=== PATIENT | male | born 1935 | race Caucasian/White ===

== ENCOUNTER 2017-09-21 20:40 | Inpatient (IN) | payer OTHER, MEDICARE ==
[~2017-09-21] VITALS: Ht 177.8 cm; Wt 80.7 kg
[~2017-09-21 20:40] MED LIST: ADVIL PO; ALBUTEROL 3 ML3 ML INH; ANTIVERT 25MG #1 PAC PO; ASPIR 8181 MG PO; ASPIRIN81 M4 PO; BACTRIM DS TAB1 EACH PO; Benadryl TOP; MIRALAX17 GM PO; Mucinex PO; PREDNISONE 10MG10 M1 PO; SENNA CON/DOCUS1 TAB PO; SENNA PLUS 50 M1 TAB PO; SIMVASTATIN40 M1 PO; SIMVASTATIN40 MG PO; SIMVASTATIN80 MG PO; VENTOLIN1 PUF INH; VITAMIN B122500 MC1 PO
--- NOTE | 2017-09-21 20:42 | ED AMS/SEIZURE/WEAK/DIZZY ---
History of Present Illness General Chief Complaint: General Adult Stated Complaint: BIBA WITH WEAKNESS Source: patient, family, old records, EMS Exam Limitations: dementia Vital Signs & Intake/Output Vital Signs & Intake/Output Vital Signs Date Time Temp Pulse Resp B/P B/P Pulse O2 O2 Flow FiO2 Mean Ox Delivery Rate 09/27 1257 97.8 62 20 128/74 02/ 0615 97.8 62 20 128/74 98 Room Air 09/26 2232 98.0 80 19 108/52 94 Room Air 09/26 1454 97.6 70 20 134/70 95 Room Air ED Intake and Output 09/27 0000 09/26 1200 Intake Total 200 Output Total Balance 200 Intake, IV 200 Patient 174 lb Weight Weight Bed scale Measurement Method Allergies Coded Allergies: acetaminophen (Mild, RASH 09/21/17) Reconcile Medications Amoxicillin/Potassium Clav (Augmentin 875-125 Tablet) 875 MG-125 MG TABLET 1 TAB PO BID Aspiration pneumonia Aspirin (Aspirin*) 81 MG TAB.CHEW 1 TAB PO DAILY HEART HEALTH (Reported) Cyanocobalamin (Vitamin B-12) 1,000 MCG TABLET 1 TAB PO DAILY SUPPLEMENT ( Reported) Escitalopram Oxalate (Lexapro) 5 MG TABLET 0.5 TAB PO DAILY Depression Hold for hyponatremia. Hold for QTc greater than 475 mS. Gabapentin 100 MG CAPSULE 1 CAP PO Q8 Anxiety off label use Ramelteon (Rozerem) 8 MG TABLET 1 TAB PO AT BEDTIME NEEDED PRN INSOMNIA Simvastatin (Simvastatin*) 40 MG TABLET 1 TAB PO QAM CHOLESTEROL (Reported) Triage Nurses Notes Reviewed? yes Onset: Abrupt Duration: day(s): (1) Injury Environment: home Severity: moderate No Modifying Factors: none Associated Symptoms: weakness, polyuria HPI: This is an 82-year-old male with history of dementia and high cholesterol who presents by EMS from home for chief complaint of weakness. According to the he was fine earlier in the day, went for a haircut. He came home and had a snack. This evening he went to go to bed around 6:00 which is normal for him. She went to check up on him and noticed that he had a hard time getting his leg in the pants. She helped him with that. She then noticed that he had a hard time lying down in bed and seemed to be weak. He urinated multiple times but this is not abnormal for him. No fever or chills. No abdominal pain chest pain shortness of breath runny nose or cough. He is a pneumonia vaccine. History of UTI previous confusion. According to the daughter he has been progressively failing at home secondary to dementia. Has a history of aphasia and is prone to aspiration pneumonia as well. Past History Travel History Traveled to [place] past 21 day No Medical History Any Pertinent Medical History? see below for history Neurological: dementia Cardiovascular: hyperlipidemia Respiratory: bronchitis Gastrointestinal: DYSPHAGIA Renal: nephrolithiasis Musculoskeletal: arthritis of neck History of MRSA: No History of VRE: No History of CDIFF: No Surgical History Surgical History: N Right inguinal area surgery Psychosocial History Who do you live with Family Services at Home None What is your primary language Cymraes Family History Family History, If Any: SISTER Relation not specified for: FH: HTN (hypertension) Hx Contributory? No Review of Systems Review of Systems Constitutional: Reports: malaise, weakness. Denies: chills, fever. EENTM: Reports: no symptoms. Respiratory: Reports: cough. Denies: short of breath, sputum production. Cardiovascular: Denies: chest pain. GI: Denies: abdominal pain, diarrhea, nausea, vomiting. Genitourinary: Reports: frequency. Musculoskeletal: Denies: back pain. Skin: Reports: no symptoms. Neurological/Psychological: Reports: no symptoms. Hematologic/Endocrine: Reports: polyuria. Denies: bruising, bleeding, polydipsia. Immunologic/Allergic: Denies: splenectomy. All Other Systems: Reviewed and Negative Physical Exam Physical Exam General Appearance: well developed/nourished, alert, awake, mild distress Head: atraumatic, normal appearance Eyes: Bilateral: normal appearance, PERRL, EOMI. Ears, Nose, Throat: normal pharynx, hearing grossly normal Neck: normal inspection, supple, full range of motion Respiratory: normal breath sounds, chest non-tender, no respiratory distress Cardiovascular: regular rate/rhythm Peripheral Pulses: 2+ radial (R), 2+ radial (L) Gastrointestinal: normal bowel sounds, soft, non-tender Extremities: normal range of motion Neurologic/Psych: no motor/sensory deficits, awake, alert, ORIENTED X 2 Skin: intact, normal color, warm/dry Core Measures ACS in differential dx? No CVA/TIA Diagnosis No Sepsis Present: No Sepsis Focused Exam Completed? No Progress Differential Diagnosis: anemia, dehydration, encephalitis, pneumonia, UTI/pyelo, SEPSIS Plan of Care: Orders Procedure Date/time Status Discharge Patient 09/27 UNK Active Nursing Misc 09/26 UNK Active Current Medications Sig/Mckenzie Start time Last Medication Dose Stop Time Status Admin Diphenhydramine HCl 1 DALTON BID PRN 09/25 1500 AC (Benadryl) Escitalopram Oxalate 2.5 MG DAILY 09/24 1000 AC 09/27 (Lexapro) 0910 Ramelteon 8 MG AT BEDTIME NEED.. 09/23 1515 AC (Rozerem) Gabapentin 100 MG Q8 09/23 1504 AC 09/27 (Neurontin) 0543 Omeprazole 40 MG DAILY AC 09/23 0700 AC 09/27 (Prilosec) 0543 Atorvastatin Calcium 20 MG 1700 09/22 1700 AC 09/26 (Lipitor) 1717 Aspirin 81 MG DAILY 09/22 1000 AC 09/27 (Aspirin) 0910 Enoxaparin Sodium 40 MG DAILY 09/22 1000 AC 09/27 (Lovenox) 0910 Laboratory Tests 09/26/17 1820: Anion Gap 15, Estimated GFR > 60, BUN/Creatinine Ratio 32.9 H Diagnostic Imaging: Viewed by Me: Radiology Read, CT Scan. Discussed w/RAD: Radiology Read, CT Scan. Radiology Impression: PATIENT: MEGAN COTTON PRESENT AGE: 82 PATIENT ACCOUNT NO: [id number] : 34 LOCATION: [facility] ORDERING PHYSICIAN: Jessie Rey MD SERVICE DATE: 09/21/17 EXAM TYPE: CAT - CT ABD & PELVIS W IV CONTRAST; CT CHEST W IV CONTRAST EXAMINATION: CT CHEST WITH CONTRAST CT ABDOMEN AND PELVIS WITH CONTRAST CLINICAL INFORMATION: Fever, lethargy, leukocytosis. COMPARISON: Chest radiograph from earlier today TECHNIQUE: Multidetector volumetric imaging was performed through the chest, abdomen and pelvis following the administration of 95 mL of Optiray 320 intravenous contrast. Sagittal and coronal reformatted images were obtained on the technologist's workstation. Axial MIP volume rendering provided. DLP: 609 mGy-cm. FINDINGS: CHEST: Lungs: The central airways are patent. There is focal opacity seen at the left lower lobe at the posterior costophrenic angle. Linear scarring seen at the left lung apex. Minimal groundglass opacity noted dependently at the right upper lobe, along the major fissure. There is a subpleural left lower lobe nodule measuring 0.4 cm, series 4 image 235. There is a left upper lobe 0.5 cm nodule on series 4 image 110.. Mediastinum: The heart is normal in size. Coronary artery calcifications are present. No pericardial effusion. No mediastinal lymphadenopathy. The thyroid gland is unremarkable. Chest Wall/Axilla: No lymphadenopathy. No chest wall mass. ABDOMEN/PELVIS: Liver , Gallbladder, Biliary Tree: The liver is normal in size, shape, and attenuation. There is no intrahepatic biliary ductal dilatation. Multiple hypoattenuating lesions are seen in the liver. The largest is seen in segment 4A , measuring 2.6 cm and is consistent with a cyst.. The gallbladder is unremarkable with no evidence of radiopaque gallstones, gallbladder wall thickening, or pericholecystic inflammatory changes. Pancreas: Unremarkable. Spleen: Unremarkable. Adrenal Glands: Unremarkable. Kidneys and Ureters: The kidneys are normal in size, shape, and attenuation. No hydronephrosis or hydroureter. Minimal symmetric perinephric stranding. There is a left upper pole 0.6 cm calculus, 7 cm from the posterior axillary line, measuring 600 Hounsfield units. Bladder: Unremarkable. Gastrointestinal Tract: The stomach is unremarkable. The small bowel is normal in caliber. No obstruction. Normal appendix. There is no colonic wall thickening or inflammatory change. There is a mild colonic stool burden. Moderate stool distends the rectum. No free air or free fluid. Abdominal Wall: Fat-containing right inguinal hernia. Lymphovascular Structures: Lymph nodes: Normal. Vascular: Normal caliber aorta with mild atherosclerotic calcifications. Pelvic Viscera: The prostate and seminal vesicles are unremarkable. OSSEOUS STRUCTURES: No suspicious sclerotic or lytic bone lesions are identified. Degenerative changes throughout the spine. DISH. Degenerative changes of both hips. IMPRESSION: Airspace opacity at the left lung base posterior costophrenic angle. This could represent atelectasis or pneumonia. Pulmonary nodules measuring up to 0.5 cm[address] follow-up could be considered in a high-risk patient. No acute findings in the abdomen or pelvis. Stool throughout the colon. Nonobstructive left upper pole renal calculus. DICTATED BY: Nahid BUSH,Walter DATE/TIME DICTATED:09/21/172325 CAN INSPECTOR:GALINA DATE/TIME TRANSCRIBED:09/21/172325 CONFIDENTIAL, DO NOT COPY WITHOUT APPROPRIATE AUTHORIZATION. <Electronically signed in Other Vendor System> SIGNED BY: Walter Whitfield MD 09/21/172336 CXR Impression: PATIENT: MEGAN COTTON PRESENT AGE: 82 PATIENT ACCOUNT NO: [id number] : 34 LOCATION: [facility] ORDERING PHYSICIAN: Jessie Rey MD SERVICE DATE: 09/21/17 EXAM TYPE: RAD - XRY-CHEST XRAY , TWO VIEWS EXAMINATION: XR CHEST CLINICAL INFORMATION: Fever. Weakness. History of dysphagia. Rule out aspiration or pneumonia. COMPARISON: Several previous chest x-rays the last chest x-ray dated 04/14/2017. TECHNIQUE: 2 views of the chest were obtained. FINDINGS: Stable mild elevation of the right hemidiaphragm. Streaky right basilar opacities are not significantly changed compared to previous study reflecting atelectasis and/or scarring. Streaky bilateral paramediastinal and left basilar opacities are also stable since previous studies. No discrete focal consolidation is noted. No pulmonary edema, pneumothorax or pleural effusions. A faint 4 mm nodular density projecting in the right upper lung over anterior segment of the second rib and posterior segment of the fourth rib is a stable finding when compared to previous chest x- rays of 11/18/2014. Cardiomediastinal silhouette is stable and normal. Mild degenerative changes in the thoracolumbar spine. IMPRESSION: Stable chronic finding. No convincing evidence of superimposed acute pulmonary process. DICTATED BY: Bina Parham MD DATE/TIME DICTATED:09/21/172109 CAN INSPECTOR: GALINA DATE/TIME TRANSCRIBED:09/21/172109 CONFIDENTIAL, DO NOT COPY WITHOUT APPROPRIATE AUTHORIZATION. <Electronically signed in Other Vendor System> SIGNED BY: Bina Parham MD 09/21/172116 Initial ED EKG: NSR, RBBB Prior EKG: unchanged Departure Departure Disposition: STILL A PATIENT Condition: Stable Clinical Impression Primary Impression: Pneumonia Referrals: Natali Hurst MD (PCP/Family) Departure Forms: Customer Survey General Discharge Information Prescriptions: Current Visit Scripts Gabapentin 1 CAP PO Q8 #30 CAP Escitalopram Oxalate (Lexapro) 0.5 TAB PO DAILY #30 TAB Hold for hyponatremia. Hold for QTc greater than 475 mS. Ramelteon (Rozerem) 1 TAB PO AT BEDTIME NEEDED PRN INSOMNIA #30 TAB Amoxicillin/Potassium Clav (Augmentin 875-125 Tablet) 1 TAB PO BID #4 TAB studies. No discrete focal consolidation is noted. No pulmonary edema, pneumothorax or pleural effusions. A faint 4 mm nodular density projecting in the right upper lung over anterior segment of the second rib and posterior segment of the fourth rib is a stable finding when compared to previous chest x- rays of 11/18/2014. Cardiomediastinal silhouette is stable and normal. Mild degenerative changes in the thoracolumbar spine.
[2017-09-21] MEDS ORDERED: VITAMIN B-121000 MC3 PO (20:46)
--- NOTE | 2017-09-21 21:17 | RADIOLOGY REPORT ---
EXAMINATION: XR CHEST CLINICAL INFORMATION: Fever. Weakness. History of dysphagia. Rule out aspiration or pneumonia. COMPARISON: Several previous chest x-rays the last chest x-ray dated 04/14/2017. TECHNIQUE: 2 views of the chest were obtained. FINDINGS: Stable mild elevation of the right hemidiaphragm. Streaky right basilar opacities are not significantly changed compared to previous study reflecting atelectasis and/or scarring. Streaky bilateral paramediastinal and left basilar opacities are also stable since previous studies. No discrete focal consolidation is noted. No pulmonary edema, pneumothorax or pleural effusions. A faint 4 mm nodular density projecting in the right upper lung over anterior segment of the second rib and posterior segment of the fourth rib is a stable finding when compared to previous chest x-rays of 11/18/2014. Cardiomediastinal silhouette is stable and normal. Mild degenerative changes in the thoracolumbar spine. IMPRESSION: Stable chronic finding. No convincing evidence of superimposed acute pulmonary process.
[2017-09-21 21:53] LABS: ABSOLUTE BASOPHIL COUNT 0 /CUMM (0.0-0.2); ABSOLUTE EOSINOPHIL COUNT 0 /CUMM (0.0-0.7); ABSOLUTE GRANULOCYTE CT 12.9 /CUMM (1.4-6.5); ABSOLUTE LYMPH COUNT 0.7 /CUMM (1.2-3.4); ABSOLUTE MONOCYTE COUNT 0.7 /CUMM (0.10-0.60); BASOPHIL % 0 % (0.0-2.0); EOSINOPHIL % 0.1 % (0-5); HEMATOCRIT 44.1 % (42-52); MEAN CORPUSCULAR HGB 30.5 PG (27.0-31.0); MEAN CORPUSCULAR HGB CONC 32.1 G/DL (33.0-37.0); MEAN CORPUSCULAR VOLUME 94.9 FL (80.0-94.0); MEAN PLATELET VOLUME 7.7 FL (7.4-10.4); PLATELET COUNT 226 /CUMM (130-400); RBC DISTRIBUTION WIDTH 13.5 % (11.5-14.5); RED BLOOD CELL CT 4.65 /CUMM (4.70-6.10); WHITE BLOOD CELL COUNT 14.3 /CUMM (4.8-10.8)
[2017-09-21 22:14] LABS: GRANULOCYTE % 90.1 % (42.2-75.2)
--- NOTE | 2017-09-21 23:37 | CT SCAN REPORT ---
EXAMINATION: CT CHEST WITH CONTRAST CT ABDOMEN AND PELVIS WITH CONTRAST CLINICAL INFORMATION: Fever, lethargy, leukocytosis. COMPARISON: Chest radiograph from earlier today TECHNIQUE: Multidetector volumetric imaging was performed through the chest, abdomen and pelvis following the administration of 95 mL of Optiray 320 intravenous contrast. Sagittal and coronal reformatted images were obtained on the technologist's workstation. Axial MIP volume rendering provided. DLP: 609 mGy-cm. FINDINGS: CHEST: Lungs: The central airways are patent. There is focal opacity seen at the left lower lobe at the posterior costophrenic angle. Linear scarring seen at the left lung apex. Minimal groundglass opacity noted dependently at the right upper lobe, along the major fissure. There is a subpleural left lower lobe nodule measuring 0.4 cm, series 4 image 235. There is a left upper lobe 0.5 cm nodule on series 4 image 110.. Mediastinum: The heart is normal in size. Coronary artery calcifications are present. No pericardial effusion. No mediastinal lymphadenopathy. The thyroid gland is unremarkable. Chest Wall/Axilla: No lymphadenopathy. No chest wall mass. ABDOMEN/PELVIS: Liver, Gallbladder, Biliary Tree: The liver is normal in size, shape, and attenuation. There is no intrahepatic biliary ductal dilatation. Multiple hypoattenuating lesions are seen in the liver. The largest is seen in segment 4A, measuring 2.6 cm and is consistent with a cyst.. The gallbladder is unremarkable with no evidence of radiopaque gallstones, gallbladder wall thickening, or pericholecystic inflammatory changes. Pancreas: Unremarkable. Spleen: Unremarkable. Adrenal Glands: Unremarkable. Kidneys and Ureters: The kidneys are normal in size, shape, and attenuation. No hydronephrosis or hydroureter. Minimal symmetric perinephric stranding. There is a left upper pole 0.6 cm calculus, 7 cm from the posterior axillary line, measuring 600 Hounsfield units. Bladder: Unremarkable. Gastrointestinal Tract: The stomach is unremarkable. The small bowel is normal in caliber. No obstruction. Normal appendix. There is no colonic wall thickening or inflammatory change. There is a mild colonic stool burden. Moderate stool distends the rectum. No free air or free fluid. Abdominal Wall: Fat-containing right inguinal hernia. Lymphovascular Structures: Lymph nodes: Normal. Vascular: Normal caliber aorta with mild atherosclerotic calcifications. Pelvic Viscera: The prostate and seminal vesicles are unremarkable. OSSEOUS STRUCTURES: No suspicious sclerotic or lytic bone lesions are identified. Degenerative changes throughout the spine. DISH. Degenerative changes of both hips. IMPRESSION: Airspace opacity at the left lung base posterior costophrenic angle. This could represent atelectasis or pneumonia. Pulmonary nodules measuring up to 0.5 cm[address] follow-up could be considered in a high-risk patient. No acute findings in the abdomen or pelvis. Stool throughout the colon. Nonobstructive left upper pole renal calculus.
--- NOTE | 2017-09-22 00:45 | History & Physical ---
Reese BUSH,[facility] 09/22/17 0044: General Information and HPI MD Statement: I have seen and personally examined MEGAN COTTON and documented this H&P. The patient is a 82 year old M who presented with a patient stated chief complaint of [weakness]. Source of Information: patient, family History of Present Illness: The patient is the father of Samanta from [employer]. She is one one providing most of the story along with the patient's grandson. 82-year-old male with a past medical history of dementia and high cholesterol presenting by EMS from home for chief complaint of weakness. The patient was reportedly fine all day today however he attempts to get into bed around 6:00 his normal bedtime but was unable to. He was then found by his grandson sitting but the edge of the bed however he had a hard time lying down in bed. The patient was then moved to a chair however he continued to be weak. EMS was called as the patient was too weak to move. The patient's only symptom was a fever last night. The patient and the family deny any headaches, fevers, chills, nausea, vomiting, diarrhea, abdominal pain, or changes in elimination.' Of note the patient is currently fixated on urinating. He states that he has to urinate multiple times. It appears as a the patient's urinary urgency is worse when he is lying flat on the bed. He has no history of BPH or any prostate conditions. The family believes this is more likely due to behavioral causes as the patient complains of urinary urgency however if he is distracted such as going out for car ride he will not be complaining about. Allergies/Medications Allergies: Coded Allergies: acetaminophen (Mild, RASH 09/21/17) Home Med list Aspirin (Aspirin*) 81 MG TAB.CHEW 1 TAB PO DAILY HEART HEALTH (Reported) Cyanocobalamin (Vitamin B-12) 1,000 MCG TABLET 1 TAB PO DAILY SUPPLEMENT ( Reported) Simvastatin (Simvastatin*) 40 MG TABLET 1 TAB PO QAM CHOLESTEROL (Reported) Past History Travel History Traveled to [place] past 21 day No Medical History Neurological: dementia Cardiovascular: hyperlipidemia Respiratory: bronchitis Gastrointestinal: DYSPHAGIA Hepatic: NONE Renal: nephrolithiasis Musculoskeletal: arthritis of neck Psychiatric: NONE Endocrine: NONE History of MRSA: No History of VRE: No History of CDIFF: No Surgical History Surgical History: N Right inguinal area surgery Past Family/Social History Family History Relations & Conditions if any SISTER Relation not specified for: FH: HTN (hypertension) Psychosocial History Services at Home: None Review of Systems Review of Systems Constitutional: Reports: fever. Cardiovascular: Reports: no symptoms. Respiratory: Reports: no symptoms. GI: Reports: no symptoms. Genitourinary: Reports: no symptoms. Musculoskeletal: Reports: no symptoms. Skin: Reports: no symptoms. Exam & Diagnostic Data Last 24 Hrs of Vital Signs/I&O Vital Signs Date Time Temp Pulse Resp B/P B/P Pulse O2 O2 Flow FiO2 Mean Ox Delivery Rate 09/22 0135 98.1 84 20 104/61 100 09/21 2306 100.4 09/21 2047 99.5 104 16 144/66 99 Room Air Room Air Intake & Output 09/22 0800 09/22 0000 09/21 1600 Intake Total 175 Output Total 275 Balance -100 Intake, IV 100 Intake, Oral 75 Output, Urine 275 Physical Exam General Appearance Alert, AOx2 to person, place. Able to name daughter and grandson. Recognizes he is at geni. Cardiovascular Regular Rate, Normal S1, Normal S2 Lungs Clear to Auscultation, decreased R lower lobe air movement Abdomen Normal Bowel Sounds, Soft, No Tenderness Extremities no LE edema Vascular 2+ radial pulses Last 24 Hrs of Labs/Harley: Laboratory Tests 09/22/17 0540: Anion Gap 12, Estimated GFR > 60, BUN/Creatinine Ratio 37.1 H, CBC w Diff NO MAN DIFF REQ, RBC 4.19 L, MCV 94.3 H, MCH 31.7 H, MCHC 33.6, RDW 13.4, MPV 7.8, Gran % 82.8 H, Lymphocytes % 10.4 L, Monocytes % 6.5, Eosinophils % 0.1, Basophils % 0.2, Absolute Granulocytes 11.4 H, Absolute Lymphocytes 1.4, Absolute Monocytes 0.9 H, Absolute Eosinophils 0, Absolute Basophils 0 09/21/17 2342: Lactic Acid Cancelled 09/21/179: Anion Gap 16, Estimated GFR > 60, BUN/Creatinine Ratio 41.4 H, Glucose 110 H, Lactic Acid 1.9, Calcium 9.6, Total Bilirubin 0.7, AST 29, ALT 33, Alkaline Phosphatase 74, Total Protein 6.9, Albumin 4.2, Globulin 2.7, Albumin/Globulin Ratio 1.6, CBC w Diff NO MAN DIFF REQ, RBC 4.65 L, MCV 94.9 H, MCH 30.5, MCHC 32.1 L, RDW 13.5, MPV 7.7, Gran % 90.1 H, Lymphocytes % 5.2 L, Monocytes % 4.6, Eosinophils % 0.1, Basophils % 0, Absolute Granulocytes 12.9 H, Absolute Lymphocytes 0.7 L, Absolute Monocytes 0.7 H, Absolute Eosinophils 0, Absolute Basophils 0, Urine Color YEL, Urine Clarity CLEAR, Urine pH 6.5, Ur Specific [place] 1.020, Urine Protein NEG, Urine Ketones TRACE H, Urine Nitrite NEG, Urine Bilirubin NEG, Urine Urobilinogen 1.0, Ur Leukocyte Esterase NEG, Ur Microscopic EXAM NOT REQUIRED, Urine Hemoglobin NEG, Urine Glucose NEG Microbiology 09/21 2149 NASOPHARYN: Influenza Virus A & B Rapid Smear - COMP 09/21 2129 BLOOD: Blood Culture - RECD 09/21 2128 BLOOD: Blood Culture - RECD Assessment/Plan Assessment: 82-year-old male with a past medical history of dementia, worsening dysphagia and high cholesterol presenting by EMS from home for chief complaint of weakness found to have possible aspiration pneumonia on imaging. #aspiration pna Temperature max 100.4 WBC 14.3 CXR: Stable chronic finding. No convincing evidence of superimposed acute pulmonary process. CT abd/pelvis: 1)Airspace opacity at the left lung base posterior costophrenic angle. This could represent atelectasis or pneumonia. 2)Pulmonary nodules measuring up to 0.5 cm[address] follow-up could be considered in a high-risk patient. 3)Stool throughout the colon. Nonobstructive left upper pole renal calculus -cont mechnical soft and nectar thick diet -cont unasyn -f/u swallow eval -f/u blood cx #hld -continue atorvastain #dvt prophylaxis -lovenox # DNR DNI As Ranked By This Provider Problem List: 1. Aspiration pneumonia Core Measures/Misc (05/08) Acute Coronary Syndrome ACS Diagnosis: No Congestive Heart Failure Congestive Heart Failure Diagnosis No Cerebrovascular Accident CVA/TIA Diagnosis: No VTE (View Protocol) VTE Risk Factors Acute Medical Illness No Mechanical VTE Prophylaxis d/t Other No VTE Pharm Prophylaxis d/t NA PharmProphylax ordered Sepsis (View protocol) Sepsis Present: No Urile BUSH,[facility] 09/22/17 0411: Resident Review Statement Resident Statement: examined this patient, discussed with sales management intern, agreed with sales management intern, discussed with family, reviewed EMR data (avail) Other Findings: Mr. Cotton is 82 year old male with past medical history significant for dementia, hyperlipidemia, dysphagia who presented to ED with chief complaint of weakness and lethargy for 1 day. Patient was in his regular state of health until 6 PM this evening the family noticed weakness and fatigability, patient denied any chest pain, shortness of breath, cough, ear pain, nasal congestion, history of sick contact. Family history denied any change in mentation from baseline. Patient has been having multiple episodes of choking attacks that getting worse with time. Of note patient failed multiple swallow evaluation in the past 2 years ago, recommendation for mechanical soft and thick liquid however he has been drinking milk chocolate that has thicker consistency than thin water. On admission vital signs temperature 99.5 with MAXIMUM TEMPERATURE 100.4, pulse 104, respiratory rate 16 with saturation 99% on room air, blood pressure 144/66 Physical exam and lab work as above Chest x-ray IMPRESSION: Stable chronic finding. No convincing evidence of superimposed acute pulmonary process. CT scan chest, abdomen and pelvis IMPRESSION: Airspace opacity at the left lung base posterior costophrenic angle. This could represent atelectasis or pneumonia. Pulmonary nodules measuring up to 0.5 cm[address] follow-up could be considered in a high-risk patient. No acute findings in the abdomen or pelvis. Stool throughout the colon. Nonobstructive left upper pole renal calculus. Problem list #Aspiration pneumonia #Hyperlipidemia #Dementia Plan -Admit to general medical floor -Vital signs every 6 -Follow-up blood culture -Continue IV Unasyn -TRC -Swallowing evaluation -We'll start diet meanwhile as patient is very hungry mechanical soft and nectar thick -DVT prophylaxis Lovenox and Alps -Code DNR/DNI Andressa Vasquez 09/22/17 0744: Attending MD Review Statement Attending Statement Attending MD Statement: examined this patient, discuss w/resident/PA/PYTHON JAVA DEVELOPER, agreed w/resident/PA/PYTHON JAVA DEVELOPER, discussed with family, reviewed EMR data (avail), reviewed images, amended to note Attending Assessment/Plan: CC: More lethargic PMH: HLD, dementia Patient was brought in ER for being more lethargic, not being himself. History is obtained from patient's daughter, given patient's dementia. Patient has chronic urinary frequency which is unchanged, family did not notice any cough or expectoration but patient has history of dysphagia, always having hacking sensation in throat, history of previous aspiration pneumonia, so family was concerned regarding pneumonia and patient was brought in ER Vitals: BP max 100.4, pulse 104, RR 16, blood pressure 144/66, saturating 99% on room air on exam: A O 3, cooperative, no acute distress, neck supple, JVD normal, no lymphadenopathy, mucosa moist, no focal neurological deficit, no dependent edema, no obvious skin rashes or inflammation CVS: S1-S2, RRR. RS: Decreased air entry on left mid and basal. Abdomen: Soft, NT, ND, bowel sounds present. Labs: WBC 14.3, hemoglobin 14.2, hematocrit 44.1, platelets 226, neutrophils 90% , sodium 144, potassium 4.4, chloride 102, bicarbonate 26, BUN 29, creatinine 0.7, glucose 110, calcium 9.6, lactate 1.9, LFT unremarkable UA unremarkable CT chest abdomen pelvis with IV contrast: 1.Airspace opacity at the left lung base posterior costophrenic angle. This could represent atelectasis or pneumonia. 2.Pulmonary nodules measuring up to 0.5 cm[address] follow-up could be considered in a high-risk patient. 3.No acute findings in the abdomen or pelvis. Stool throughout the colon. Nonobstructive left upper pole renal calculus. Assessment and plan 82-year-old male with past medical history significant for dyslipidemia and dementia currently not on any treatment and history of dysphagia in the past but aspiration pneumonia presented in ER for being lethargic this evening. There was no obvious cough but patient's family noticed chronically increased urinary frequency. Multiple imaging were obtain to rule out any infection as a cause of delirium secondary to dementia, patient was found to have left lower lobe infiltrate suggestive of pneumonia probably secondary to aspiration. While on examination patient was back to his baseline. He has poor recall and repeats the same questions again and again. Last swallow evaluation was 2 years back. Family and patient insists on continuing thickened diet and not being nothing by mouth, I agree with that. + Aspiration pneumonia + Dysphagia + History of dementia - Admit to general medicine - Continue IV Unasyn - Continue nectar thick consistency diet - Swallow evaluation - Continue home medications - Watch for any delirium - DVT prophylaxis
[2017-09-22 05:58] LABS: ABSOLUTE BASOPHIL COUNT 0 /CUMM (0.0-0.2); ABSOLUTE EOSINOPHIL COUNT 0 /CUMM (0.0-0.7); ABSOLUTE GRANULOCYTE CT 11.4 /CUMM (1.4-6.5); ABSOLUTE LYMPH COUNT 1.4 /CUMM (1.2-3.4); ABSOLUTE MONOCYTE COUNT 0.9 /CUMM (0.10-0.60); BASOPHIL % 0.2 % (0.0-2.0); EOSINOPHIL % 0.1 % (0-5); GRANULOCYTE % 82.8 % (42.2-75.2); HEMATOCRIT 39.5 % (42-52); MEAN CORPUSCULAR HGB 31.7 PG (27.0-31.0); MEAN CORPUSCULAR HGB CONC 33.6 G/DL (33.0-37.0); MEAN CORPUSCULAR VOLUME 94.3 FL (80.0-94.0); MEAN PLATELET VOLUME 7.8 FL (7.4-10.4); PLATELET COUNT 223 /CUMM (130-400); RBC DISTRIBUTION WIDTH 13.4 % (11.5-14.5); RED BLOOD CELL CT 4.19 /CUMM (4.70-6.10); WHITE BLOOD CELL COUNT 13.7 /CUMM (4.8-10.8)
--- NOTE | 2017-09-22 07:46 | Admission Certification ---
Admission Certification Certification Statement - As attending physician, I certify that at the time of - admission, based on clinical presentation, severity of - symptoms, need for further diagnostic testing and - therapeutic interventions, and risk of adverse outcomes - without in-hospital treatment, in my clinical assessment, - this patient requires an acute hospital stay for a minimum - of two nights or longer. I have also considered psychsocial - factors such as support system, advanced age, financial - issues, cognitive issues, and failed out-patient treatments, - past re-admission history, safety of patient, and lack of - compliance as applicable. Specific rationale supporting this admission is: Aspiration pneumonia
--- NOTE | 2017-09-22 08:05 | PN- Housestaff ---
DiegoLopez 09/22/17 0804: Subjective Follow-up For: Aspiration pneumonia Subjective: No overnight events. She remained afebrile overnight. Seen and examined this morning. Patient denied any chest pain, short of breath, nausea, vomiting, chills, fever and abdominal pain. Patient was repeatedly asking then he will go home. Review of Systems Constitutional: Reports: no symptoms. EENTM: Reports: no symptoms. Cardiovascular: Reports: no symptoms. Respiratory: Reports: no symptoms. Gastrointestinal: Reports: no symptoms. Genitourinary: Reports: no symptoms. Neurological/Psychological: Reports: no symptoms. Objective Last 24 Hrs of Vital Signs/I&O Vital Signs Date Time Temp Pulse Resp B/P B/P Pulse O2 O2 Flow FiO2 Mean Ox Delivery Rate 09/22 1312 Room Air 09/22 1027 97 Room Air Room Air 09/22 1013 77 18 114/74 100 Room Air 09/22 0823 96.8 77 15 135/70 100 Room Air Room Air 09/22 0624 99.0 83 22 116/69 98 Room Air 09/22 0135 98.1 84 20 104/61 100 09/21 2306 100.4 09/21 2047 99.5 104 16 144/66 99 Room Air Room Air Intake & Output 09/22 1600 09/22 0800 09/22 0000 Intake Total 175 Output Total 275 Balance -100 Intake, IV 100 Intake, Oral 75 Output, Urine 275 Patient 170 lb Weight Weight Reported by Patient Measurement Method Physical Exam General Appearance: Alert, Cooperative Skin Temp/Moisture Exam: Warm/Dry Sepsis Skin Exam (color): Normal for Ethnicity HEENT: Atraumatic, PERRLA, EOMI Neck: Supple Cardiovascular: Normal S1, Normal S2 Lungs: Clear to Auscultation Abdomen: Soft, No Tenderness Neurological: Normal Speech, Strength at 5/5 X4 Ext, Normal Tone, Sensation Intact Extremities: No Edema Assessment/Plan Assessment: 82-year-old male with a past medical history of dementia, worsening dysphagia, arthritis and hyperlipidemia presenting by EMS from home for chief complaint of weakness found to have possible aspiration pneumonia on imaging. Admit the patient on general medicine floor and treated for aspiration pneumonia and evaluate for dysphagia. Aspiration pneumonia: -As patient having dysphagia as reported by the family members. -We will get swallow eval -We will modify his diet to nector thick for now and later swallow eval recommendations. -We will continue IV Unasyn. -Head end elevation to prevent aspiration. -Aspiration precautions. -Prophylactic PPI therapy. -Avoid any delirium triggered medication. -We'll continue aspirin. History of hyperlipidemia: -We will continue Lipitor. DVT Prophylaxis: Mechanical and Lovenox. CODE STATUS; DNR/intub Problem List: 1. Aspiration pneumonia Pain Ratin Pain Location: none Pain Goal: Remain pain free Pain Plan: pain pathway Tomorrow's Labs & Rationales: cbc/bep Elena Tay MD 09/22/17 1644: Attending MD Review Statement Attending Statement Attending MD Statement: examined this patient, discuss w/resident/PA/CHINESE HERBALIST, agreed w/resident/PA/CHINESE HERBALIST, reviewed EMR data (avail) Attending Assessment/Plan: 82M PMH HLD, dementia presenting with 1 day of weakness and lethargy, found to have LLL infiltrate, WBC 14, treated with Unasyn and IV fluids, with improvement in mental status. Patient feels well today, is pleasantly confused and forgetful, and wants to go home. Per family the patient has had issues with swallowing in the past, and was unable to complete a modified barium swallow 5 years ago. He is hemodynamically stable at this time, cultures NGTD. 1. LLL aspiration pneumonia 2. Oropharyngeal dysphagia 3. Alzheimer's dementia 4. Metabolic encephalopathy (resolved) Plan - Continue on general medicine - Continue Unasyn - Sputum culture if possible - Seen by speech therapy, failed modified barium swallow. After discussion with patient and family, will not pursue PEG at this time as it is not in the patient 's best interest, and will proceed with pureed nectar thick diet and aspiration precautions - Start PPI - Keep head of bed elevated, especially during and after meals - Continue home medications - DVT PPx
[2017-09-22 10:13] VITALS: BP 114/74
--- NOTE | 2017-09-22 14:41 | RADIOLOGY REPORT ---
EXAMINATION: XR MODIFIED BARIUM SWALLOW CLINICAL INFORMATION: Coughing with oral intake. COMPARISON: Barium esophagram of 08/07/2012. Modified barium swallow 09/07/2012. TECHNIQUE: Fluoroscopic assistance was provided during a modified barium swallow performed in cooperation with the speech pathology service. FLUOROSCOPY TIME: 1 minute, 43 seconds NUMBER OF SAVED IMAGES: Only screening capture images were saved (i.e., no additional radiation exposure with spot fluoroscopy images). FINDINGS: The modified barium swallow examination was performed in cooperation with the speech pathologist using dynamic fluoroscopic imaging in a lateral projection. The patient's swallowing function was observed during administration of apple sauce puree and honey. Prior to triggering of swallows, there was spillage of contrast material from the oral cavity into the vallecula. After deglutition, there was moderate retention of applesauce within the vallecula, and an episode of tracheal penetration of applesauce occurred. There was partial clearing of the vallecula with coughing. There was aspiration of the barium coated honey. Please refer to the speech pathology report. IMPRESSION: Tracheal penetration occurred with oral intake of applesauce, and there was moderate retention of material within the vallecula. Tracheal aspiration occurred with the barium coated honey.
[2017-09-22 22:28] VITALS: BP 112/70
[2017-09-23 05:50] VITALS: BP 110/68
--- NOTE | 2017-09-23 07:42 | PN- Housestaff ---
DiegoS [place] 09/23/17 0741: Subjective Follow-up For: Aspiration pneumonia Oropharyngeal dysphagia. Metabolic encephalopathy Subjective: No overnight events. Patient remained afebrile overnight. Seen and examined this morning. Patient having history of dementia. He was oriented to place and time but not to person. Patient denied any chest pain, short of breath, nausea, vomiting, chills, fever, abdominal pain dysuria. Her family requested to change his diet to mechanical soft and neck take. Patient was asking that he was supposed to be discharged today. We will do prostate examination today and also UA and urine culture. KIRAN was done to examine the prostate that was normal. On exam consistency of gland is firm, mucosa overlying is mobile, median sulcus is palpable and upper limit is reachable. Review of Systems Constitutional: Reports: no symptoms. EENTM: Reports: no symptoms. Cardiovascular: Reports: no symptoms. Respiratory: Reports: no symptoms. Gastrointestinal: Reports: no symptoms. Genitourinary: Reports: no symptoms. Neurological/Psychological: Reports: no symptoms. Objective Last 24 Hrs of Vital Signs/I&O Vital Signs Date Time Temp Pulse Resp B/P B/P Pulse O2 O2 Flow FiO2 Mean Ox Delivery Rate 09/23 0550 98.7 86 22 110/68 100 Room Air 09/23 0000 Room Air 09/22 2228 97.0 75 20 112/70 96 Room Air 09/22 1600 Room Air 09/22 1312 Room Air 09/22 1027 97 Room Air Room Air Intake & Output 09/23 1600 09/23 0800 09/23 0000 Intake Total 340 340 Output Total 300 Balance 340 40 Intake, IV 100 100 Intake, Oral 240 240 Output, Urine 300 Patient 175 lb Weight Physical Exam General Appearance: Alert, Cooperative Skin Temp/Moisture Exam: Warm/Dry Sepsis Skin Exam (color): Normal for Ethnicity HEENT: Atraumatic, PERRLA, EOMI Neck: Supple Cardiovascular: Normal S1, Normal S2 Lungs: Clear to Auscultation Abdomen: Soft, No Tenderness Neurological: Normal Speech, Strength at 5/5 X4 Ext, Normal Tone Extremities: No Edema Assessment/Plan Assessment: 82-year-old male with a past medical history of dementia, worsening dysphagia, arthritis and hyperlipidemia presenting by EMS from home for chief complaint of weakness found to have possible aspiration pneumonia on imaging. Admit the patient on general medicine floor and treated for aspiration pneumonia and evaluate for dysphagia. Aspiration pneumonia: -As patient having dysphagia as reported by the family members. -We will continue IV Unasyn. Day 2 -Head end elevation to prevent aspiration. -Aspiration precautions. -Prophylactic PPI therapy. -Avoid any delirium triggered medication. -We'll continue aspirin. Metabolic encephalopathy: -Could be multifactorial, aspiration pneumonia, medications or UTI. -We will check his UA and urine culture. -Avoid delirium triggered medications. Oropharyngeal dysphagia: -Patient failed modified barium swallow eval. Matter was discussed with family and they don't want PEG at this time as its not in patient's best interest and they agreed to go with puree and nector thick diet. History of hyperlipidemia: -We will continue Lipitor. DVT Prophylaxis: Mechanical and Lovenox. CODE STATUS; DNR/intub Problem List: 1. Aspiration pneumonia Pain Ratin Pain Location: none Pain Goal: Remain pain free Pain Plan: pain pathway Tomorrow's Labs & Rationales: cbc/bep Elena Tay MD 09/23/17 1303: Attending MD Review Statement Attending Statement Attending MD Statement: examined this patient, discuss w/resident/PA/BUTTON RECLAIMER, agreed w/resident/PA/BUTTON RECLAIMER, reviewed EMR data (avail) Attending Assessment/Plan: 82M PMH HLD, dementia presenting with 1 day of weakness and lethargy, found to have LLL infiltrate, WBC 14, treated with Unasyn and IV fluids, with improvement in mental status. Patient is more confused today, with delirium worsening. Per family the patient has had issues with swallowing in the past, and was unable to complete a modified barium swallow 5 years ago. He is hemodynamically stable at this time, cultures NGTD. He consistently (for the past year) says he has to urinate very frequently, but only urinates small amounts. No residual was measured in ED post-void. He denies dysuria. 1. LLL aspiration pneumonia 2. Oropharyngeal dysphagia 3. Alzheimer's dementia 4. Metabolic encephalopathy Plan - Continue on general medicine - Prostate check, repeat urinalysis and urine culture - Psychiatry consult for depression at home and agitation while inpatient - Continue Unasyn - Sputum culture if possible - Seen by speech therapy, failed modified barium swallow. After discussion with patient and family, will not pursue PEG at this time as it is not in the patient 's best interest, and will proceed with pureed nectar thick diet and aspiration precautions - Continue PPI - Keep head of bed elevated, especially during and after meals - Continue home medications - DVT PPx
[2017-09-23 09:13] LABS: ABSOLUTE BASOPHIL COUNT 0 /CUMM (0.0-0.2); ABSOLUTE EOSINOPHIL COUNT 0 /CUMM (0.0-0.7); ABSOLUTE GRANULOCYTE CT 5.2 /CUMM (1.4-6.5); ABSOLUTE MONOCYTE COUNT 0.7 /CUMM (0.10-0.60); EOSINOPHIL % 0.5 % (0-5); GRANULOCYTE % 69.5 % (42.2-75.2); HEMATOCRIT 43.5 % (42-52); MEAN CORPUSCULAR HGB 31.4 PG (27.0-31.0); MEAN CORPUSCULAR HGB CONC 33.5 G/DL (33.0-37.0); MEAN CORPUSCULAR VOLUME 93.8 FL (80.0-94.0); MEAN PLATELET VOLUME 8.4 FL (7.4-10.4); PLATELET COUNT 212 /CUMM (130-400); RBC DISTRIBUTION WIDTH 13.4 % (11.5-14.5); RED BLOOD CELL CT 4.64 /CUMM (4.70-6.10); WHITE BLOOD CELL COUNT 7.5 /CUMM (4.8-10.8)
--- NOTE | 2017-09-23 14:39 | Cons- Psychiatry ---
Psychiatric Consult Date of Consult: 09/23/17 Reason for Consult: "Dementia, confusion." Evaluate for depression and anxiety, in the setting of Alzheimer's dementia, pneumonia and possible poor sleep last night. History of Present Illness: 82 , male LEXUS from home on 09/21/17 with CC of weakness and frequent urination. He was admitted for aspiration pneumonia secondary to dysphagia. Allergies: Coded Allergies: acetaminophen (Mild, RASH 09/21/17) Current Medications: Current Medications Sig/Mckenzie Start time Last Medication Dose Route Stop Time Status Admin Ampicillin Sodium/ 3,000 MG Q6 09/22 0600 AC 09/23 Sulbactam Sodium IV 1143 Sodium Chloride 100 ML Aspirin 81 MG DAILY 09/22 1000 AC 09/23 PO 1143 Atorvastatin Calcium 20 MG 1700 09/22 1700 AC 09/22 PO 1822 Dextrose/Sodium 1,000 ML Q13H 09/22 1545 DC Chloride IV 09/23 0444 Enoxaparin Sodium 40 MG DAILY 09/22 1000 AC 09/23 SC 1143 Omeprazole 40 MG DAILY AC 09/23 0700 AC 09/23 PO 0543 Past History Past Medical History Neurological: dementia EENT: NONE Cardiovascular: hyperlipidemia Respiratory: bronchitis Gastrointestinal: DYSPHAGIA Hepatic: NONE Renal: nephrolithiasis Musculoskeletal: osteoarthritis, arthritis of neck Psychiatric: NONE Endocrine: NONE Blood Disorders: NONE Cancer(s): NONE MEDICINAL PLANT PICKER/Reproductive: NONE Past Surgical History Surgical History: Right inguinal area surgery Psychosocial History Strengths/Capabilities: Supportive family Physical Limitations (Interventions): Walks with a cane Psychiatric Treatment History Psych Treatment Psychiatric Treatment No Diagnosis: F05 Delirium due to another medical condition, aspiration pneumonia G30.9 Alzheimer's disease F02.80 Major neurocognitive disorder due to Alzheimer's disease Risk Factors: age (under 24/over 65), male Substance Use/Abuse History Drug Use/Abuse Substances Used/Abused No Substance Abuse Treatment Substance Abuse Treatment Past Substance Abuse [place] No Assessment/Plan Mental Status Orientation: Person Affect: Anxious Speech: Perseveration Neuro-vegetative: Sleep Disturbance Mental Status Exam: The patient was standing with his safety monitor and using a cane when I entered the room. He states that he had just seen a bug on the floor, "I killed one;" the safety monitor denies seeing a bug. He is oriented to name, but is off by one day, "Tuesday," states that he is in a half-way in [place], and it is July of 1962. Brian is president. 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 He denies auditory or visual disturbances. He denies suicidal or homicidal ideation. The patient states that he slept wonderful last night (Nursing reports otherwise ). He reports that he gets to sleep very quickly. Family reports that he goes to sleep at 6 PM. He denies depression, hopelessness, helplessness, worthlessness or guilty feelings. He reports that he is a little anxious, "Once in a while on the job. Parent- teacher conference." The patient's insight and judgment are not intact. Lab Results: Laboratory Tests 09/23 0750 Chemistry Sodium (137 - 145 mmol/L) 144 Potassium (3.5 - 5.1 mmol/L) 4.1 Chloride (98 - 107 mmol/L) 106 Carbon Dioxide (22 - 30 mmol/L) 23 Anion Gap (5 - 16) 15 BUN (9 - 20 mg/dL) 18 Creatinine (0.7 - 1.2 mg/dL) 0.7 Estimated GFR (>60 ml/min) > 60 BUN/Creatinine Ratio (7 - 25 %) 25.7 H Hematology CBC w Diff NO MAN DIFF REQ WBC (4.8 - 10.8 /CUMM) 7.5 RBC (4.70 - 6.10 /CUMM) 4.64 L Hgb (14.0 - 18.0 G/DL) 14.6 Hct (42 - 52 %) 43.5 MCV (80.0 - 94.0 FL) 93.8 MCH (27.0 - 31.0 PG) 31.4 H MCHC (33.0 - 37.0 G/DL) 33.5 RDW (11.5 - 14.5 %) 13.4 Plt Count (130 - 400 /CUMM) 212 MPV (7.4 - 10.4 FL) 8.4 Gran % (42.2 - 75.2 %) 69.5 Lymphocytes % (20.5 - 51.1 %) 20.6 Monocytes % (1.7 - 9.3 %) 8.9 Eosinophils % (0 - 5 %) 0.5 Absolute Granulocytes (1.4 - 6.5 /CUMM) 5.2 Absolute Monocytes (0.10 - 0.60 /CUMM) 0.7 H Absolute Eosinophils (0.0 - 0.7 /CUMM) 0 Absolute Basophils (0.0 - 0.2 /CUMM) 0 Diffential Diagnosis: F05 Delirium due to another medical condition, aspiration pneumonia G30.9 Alzheimer's disease F02.80 Major neurocognitive disorder due to Alzheimer's disease Impression: Per family, the patient is not at baseline, and presents several firsts today, including visual hallucination, not sleeping well and not recognizing his daughter, Samanta. He carries a diagnosis of Alzheimer's dementia, but the recent decreased cognition is likely due to new aspiration pneumonia. The patient also has been having dysphagia. The patient has not been willing in the past to start any medications. His daughter, Samanta, is his power of litigation attorney. I reviewed R/B/SE of escitalopram for , anxiety and depression, with her, and also gabapentin, which we will start on an as needed basis for anxiety, an off-label use. He would benefit from a geriatric evaluation, and consideration for Aricept, and possibly Namenda, as an outpatient. Provisional Treatment Plan: 1. Complete the reversible dementia screen, including electrolytes, B12, Lyme titer, head imaging, CBC. 2. Avoid delirium triggers. Minimize nursing interventions between the hours of 10PM and 6AM, or thepatient's normal sleeping hours. 3. I will order Ramelteon 8 mg PO before bedtime for insomnia 4. wrapper hands sprayer while confused or delirious 5. I will order gabapentin 100 mg PO every 8 hours for anxietry, an off-label use. 6. I will order escitalopram 2.5 mg PO daily for anxiety and depression. a. Monitor sodium and stop if hyponatremia. b. Monitor EKG, and stop for QTc prolongation c. Monitor for suicidal ideation and stop if this occurs. d. If tolerated, may increase after 7 days to 5 mg PO daily. 7. Psychiatry consult at the receiving facility. 8. Avoid benzodiazepines due to increased risk of delirium exacerbation, risk for falls. 9. If agitation, redirection and soft restraints, as necessary. 10. If severe or violent agitation, consider low dose quetiapine 12.5 mg up to 2X/day, as needed. Monitor EKG and hold for arrhythmia or QTc greater than 475 mS. Monitor and replete potassium and magnesium to the upper portion of the normal range. Hold for oversedation of respiratory depression. We will continue to follow along with you. Please call dietitian consultant psychiatry over the weekend, if severe agitation or aggression, X. [phone], X. [phone]
--- NOTE | 2017-09-23 15:28 | Patient Discharge Instructions ---
Discharge Instructions General Discharge Information You were seen/treated for: Aspiration pneumonia Oropharyngeal dysphagia Metabolic encephalopathy Watch for these problems: Shortness of breath, cough, choking, sputum, chest pain, altered mental status, increasing confusion, lightheadedness, fever and dysuria. If you experience any of these symptoms please come to ED or call to your primary care physician. Special Instructions: Follow-up your primary care physician in one week. Diet Recommended Diet: Regular Additional DIET Information: Pure and nectar thick prevent aspiration pneumonia. Activity Activity Self Limited: Yes Acute Coronary Syndrome Inclusion Criteria At DC or during hospital stay patient has or had the following: ACS DIAGNOSIS No Discharge Core Measures Meds if any: Prescribed or Continued at Discharge Meds if any: NOT Prescribed or Continued at Discharge Congestive Heart Failure Inclusion Criteria At DC or during hospital stay patient has or had the following: CHF DIAGNOSIS No Discharge Core Measures Meds if any: Prescribed or Continued at Discharge Meds if any: NOT Prescribed or Continued at Discharge Cerebrovascular accident Inclusion Criteria At DC or during hospital stay patient has or had the following: CVA/TIA Diagnosis No Discharge Core Measures Meds if any: Prescribed or Continued at Discharge Meds if any: NOT Prescribed or Continued at Discharge Venous thromboembolism Inclusion Criteria VTE Diagnosis No VTE Type NONE VTE Confirmed by (Test) NONE Discharge Core Measures - Per Current guidelines, there needs to be overlap - treatment for the first 5 days of Warfarin therapy. - If discharged on Warfarin prior to 5 days of - overlap therapy, the patient will need to be - assessed for post discharge needs including - *Post discharge parental anticoagulation - *Warfarin and/or parental anticoagulation education - *Follow up date to check INR post discharge At least 5 days overlap therapy as Inpatient No Meds if any: Prescribed or Continued at Discharge Note: Overlap Therapy is Warfarin and Anticoagulant Meds if any: NOT Prescribed or Continued at Discharge
[2017-09-23 15:36] VITALS: BP 122/80
[2017-09-23] MEDS ORDERED: AUGMENTIN 875-1 EACH PO (17:10)
[2017-09-23] MEDS ORDERED: GABAPENTIN100 M2 PO (17:10)
[2017-09-23] MEDS ORDERED: LEXAPRO5 M1 PO (17:10)
[2017-09-23] MEDS ORDERED: ROZEREM8 M1 PO (17:10)
[2017-09-23 22:37] VITALS: BP 128/82
[2017-09-24 06:48] VITALS: BP 130/82
[2017-09-24 09:08] LABS: ABSOLUTE BASOPHIL COUNT 0 /CUMM (0.0-0.2); ABSOLUTE EOSINOPHIL COUNT 0.1 /CUMM (0.0-0.7); ABSOLUTE GRANULOCYTE CT 3.7 /CUMM (1.4-6.5); ABSOLUTE LYMPH COUNT 1.2 /CUMM (1.2-3.4); ABSOLUTE MONOCYTE COUNT 0.4 /CUMM (0.10-0.60); BASOPHIL % 0.4 % (0.0-2.0); EOSINOPHIL % 0.9 % (0-5); GRANULOCYTE % 68.7 % (42.2-75.2); MEAN CORPUSCULAR HGB 31.6 PG (27.0-31.0); MEAN CORPUSCULAR HGB CONC 33.6 G/DL (33.0-37.0); MEAN CORPUSCULAR VOLUME 94.1 FL (80.0-94.0); MEAN PLATELET VOLUME 8.3 FL (7.4-10.4); PLATELET COUNT 181 /CUMM (130-400); RBC DISTRIBUTION WIDTH 13.3 % (11.5-14.5); RED BLOOD CELL CT 3.93 /CUMM (4.70-6.10); WHITE BLOOD CELL COUNT 5.4 /CUMM (4.8-10.8)
--- NOTE | 2017-09-24 10:14 | Discharge Summary ---
Hospital Course Allergies: Coded Allergies: acetaminophen (Mild, RASH 09/21/17) Discharge Instructions Medications at Discharge Discharge Medications: Continue taking these medications: Simvastatin (Simvastatin*) 40 MG TABLET 1 Tablet ORAL Every Morning Aspirin (Aspirin*) 81 MG TAB.CHEW 1 Tablet ORAL DAILY Cyanocobalamin (Vitamin B-12) 1,000 MCG TABLET 1 Tablet ORAL DAILY Start taking the following new medications: Gabapentin (Gabapentin) 100 MG CAPSULE 1 Capsule ORAL EVERY 8 HOURS Qty = 30 No Refills Escitalopram Oxalate (Lexapro) 5 MG TABLET 0.5 Tablet ORAL DAILY Qty = 30 No Refills Instructions: Hold for hyponatremia. Hold for QTc greater than 475 mS. Ramelteon (Rozerem) 8 MG TABLET 1 Tablet ORAL AT BEDTIME NEEDED as needed for INSOMNIA Qty = 30 No Refills Qty = 14 No Refills
[2017-09-24 14:26] VITALS: BP 130/70
[2017-09-24 22:51] VITALS: BP 112/62
[2017-09-25 06:50] VITALS: BP 132/74
--- NOTE | 2017-09-25 07:28 | PN- Housestaff ---
DiegoLopez 09/25/17 0728: Subjective Follow-up For: Aspiration pneumonia Oropharyngeal dysphagia. Metabolic encephalopathy Subjective: No over night events. Afibrile over night. Seen and examined this morning. one on one sitter. Denied any chest pain, palpitation, nausea, vomiting, cough and dysuria. Review of Systems Constitutional: Reports: no symptoms. EENTM: Reports: no symptoms. Cardiovascular: Reports: no symptoms. Respiratory: Reports: no symptoms. Gastrointestinal: Reports: no symptoms. Genitourinary: Reports: no symptoms. Musculoskeletal: Reports: no symptoms. Neurological/Psychological: Reports: no symptoms. Objective Last 24 Hrs of Vital Signs/I&O Vital Signs Date Time Temp Pulse Resp B/P B/P Pulse O2 O2 Flow FiO2 Mean Ox Delivery Rate 09/25 0650 98.8 67 20 132/74 96 09/24 2251 98.8 77 20 112/62 93 Room Air 09/24 1426 97.8 76 20 130/70 98 Room Air Intake & Output 09/25 1600 09/25 0800 09/25 0000 Intake Total 60 180 Output Total Balance 60 180 Intake, IV 120 Intake, Oral 60 60 Patient 175 lb Weight Weight Bed scale Measurement Method Physical Exam General Appearance: Alert, Cooperative Skin Temp/Moisture Exam: Warm/Dry Sepsis Skin Exam (color): Normal for Ethnicity HEENT: Atraumatic, EOMI Neck: Supple Cardiovascular: Normal S1, Normal S2 Lungs: Clear to Auscultation Abdomen: Soft, No Tenderness Neurological: Normal Speech, Normal Tone Extremities: No Edema Assessment/Plan Assessment: 82-year-old male with a past medical history of dementia, worsening dysphagia, arthritis and hyperlipidemia presenting by EMS from home for chief complaint of weakness found to have possible aspiration pneumonia on imaging. Admit the patient on general medicine floor and treated for aspiration pneumonia and evaluate for dysphagia. Aspiration pneumonia: -As patient having dysphagia as reported by the family members. -We will continue IV Unasyn. Day 4 -Head end elevation to prevent aspiration. -Aspiration precautions. -Prophylactic PPI therapy. -Avoid any delirium triggered medication. -We'll continue aspirin. Metabolic encephalopathy: -Could be multifactorial, aspiration pneumonia, medications or UTI. -We will check his UA and urine culture. -Avoid delirium triggered medications. Oropharyngeal dysphagia: -Patient failed modified barium swallow eval. Matter was discussed with family and they don't want PEG at this time as its not in patient's best interest and they agreed to go with puree and nector thick diet. History of hyperlipidemia: -We will continue Lipitor. DVT Prophylaxis: Mechanical and Lovenox. CODE STATUS; DNR/intub Problem List: 1. Aspiration pneumonia Pain Ratin Pain Location: NONE Pain Goal: Remain pain free Pain Plan: PAIN PATHWAY Tomorrow's Labs & Rationales: BEP Natali BUSH,B 09/25/17 1044: Attending MD Review Statement Attending Statement Attending MD Statement: examined this patient, discuss w/resident/PA/PAI GOW MANAGER, agreed w/resident/PA/PAI GOW MANAGER, discussed with nursing, discussed with case mgmt Attending Assessment/Plan: 82 y/o with PMH s/f dementia presented with the complain of letharg admitted with LLL aspiration pneumonia on unasyn. Pt is forgetful however mental status seems at baseline. Calm and cooperative. Aspiration pneumonia on unasyn - transition po aumentin upon discahrge AMS aaron metabolic encephalopathy - improved and appears to be at baseline now. Dysphagia - failed MBS on mechanical soft/nectar thick diet after discussion with family. c.w aspiration precautions. Dispo: likely in am. CM working on setting up assisted living and 24 hour care.
[2017-09-25 08:40] LABS: ABSOLUTE BASOPHIL COUNT 0 /CUMM (0.0-0.2); ABSOLUTE EOSINOPHIL COUNT 0.1 /CUMM (0.0-0.7); ABSOLUTE GRANULOCYTE CT 2.4 /CUMM (1.4-6.5); ABSOLUTE LYMPH COUNT 1.4 /CUMM (1.2-3.4); ABSOLUTE MONOCYTE COUNT 0.5 /CUMM (0.10-0.60); BASOPHIL % 0.6 % (0.0-2.0); EOSINOPHIL % 1.5 % (0-5); GRANULOCYTE % 55.5 % (42.2-75.2); HEMATOCRIT 36.7 % (42-52); MEAN CORPUSCULAR HGB 31.7 PG (27.0-31.0); MEAN CORPUSCULAR VOLUME 93.1 FL (80.0-94.0); MEAN PLATELET VOLUME 8.1 FL (7.4-10.4); PLATELET COUNT 190 /CUMM (130-400); RBC DISTRIBUTION WIDTH 13.6 % (11.5-14.5); RED BLOOD CELL CT 3.94 /CUMM (4.70-6.10); WHITE BLOOD CELL COUNT 4.4 /CUMM (4.8-10.8)
[2017-09-25 15:50] VITALS: BP 124/68
[2017-09-25 20:56] VITALS: BP 110/50
[2017-09-26 06:37] VITALS: BP 110/60
--- NOTE | 2017-09-26 07:15 | PN- Housestaff ---
DiegoLopez 09/26/17 0715: Subjective Follow-up For: Aspiration pneumonia Oropharyngeal dysphagia. Metabolic encephalopathy Subjective: No overnight events. Patient remained afebrile overnight. Seen and examined this morning. Patient having one-on-one sitter due to agitation. Patient denied any chest pain, short of breath, nausea, vomiting or chills, fever, abdominal pain dysuria. Possible discharge today. Review of Systems Constitutional: Reports: see HPI. Objective Last 24 Hrs of Vital Signs/I&O Vital Signs Date Time Temp Pulse Resp B/P B/P Pulse O2 O2 Flow FiO2 Mean Ox Delivery Rate 09/26 0637 98.0 66 20 110/60 97 09/25 2056 97.4 68 20 110/50 96 Room Air 09/25 1550 97.7 67 20 124/68 98 Room Air Intake & Output 09/26 1600 09/26 0800 02 0000 Intake Total 200 Output Total Balance 200 Intake, IV 200 Patient 174 lb Weight Weight Bed scale Measurement Method Physical Exam General Appearance: Alert, Cooperative Skin Temp/Moisture Exam: Warm/Dry Sepsis Skin Exam (color): Normal for Ethnicity HEENT: Atraumatic, PERRLA, EOMI Neck: Supple Cardiovascular: Normal S1, Normal S2 Lungs: Clear to Auscultation Abdomen: Soft, No Tenderness Neurological: Normal Speech, Normal Tone Extremities: No Edema Assessment/Plan Assessment: 82-year-old male with a past medical history of dementia, worsening dysphagia, arthritis and hyperlipidemia presenting by EMS from home for chief complaint of weakness found to have possible aspiration pneumonia on imaging. Admit the patient on general medicine floor and treated for aspiration pneumonia and evaluate for dysphagia. Aspiration pneumonia: -As patient having dysphagia as reported by the family members. -We will continue IV Unasyn. Day 5 -Head end elevation to prevent aspiration. -Aspiration precautions. -Prophylactic PPI therapy. -Avoid any delirium triggered medication. -We'll continue aspirin. Metabolic encephalopathy: -Could be multifactorial, aspiration pneumonia, medications or UTI. -We will follow urine culture. UA is negative. -Avoid delirium triggered medications. Oropharyngeal dysphagia: -Patient failed modified barium swallow eval. Matter was discussed with family and they don't want PEG at this time as its not in patient's best interest and they agreed to go with puree and nector thick diet. History of hyperlipidemia: -We will continue Lipitor. DVT Prophylaxis: Mechanical and Lovenox. CODE STATUS; DNR/intub Problem List: 1. Aspiration pneumonia Pain Ratin Pain Location: none Pain Goal: Remain pain free Pain Plan: pain pathway Tomorrow's Labs & Rationales: none Maggi BUSHAngelesraya 09/26/17 1314: Attending MD Review Statement Attending Statement Attending MD Statement: examined this patient, discuss w/resident/PA/PHYSICAL PLANT MANAGER, agreed w/resident/PA/PHYSICAL PLANT MANAGER, reviewed EMR data (avail) Attending Assessment/Plan: 82M PMH HLD, dementia presenting with 1 day of weakness and lethargy, found to have LLL infiltrate, WBC 14, treated with Unasyn and IV fluids, with improvement in mental status. Per family the patient has had issues with swallowing in the past, and was unable to complete a modified barium swallow 5 years ago. Much improved today, feels well, labs reviewed. 1. LLL aspiration pneumonia 2. Oropharyngeal dysphagia 3. Alzheimer's dementia 4. Metabolic encephalopathy Plan - Continue on general medicine - Psychiatry consult for depression at home and agitation while inpatient - Continue Unasyn, augmentin on discharge - Seen by speech therapy, failed modified barium swallow. After discussion with patient and family, will not pursue PEG at this time as it is not in the patient 's best interest, and will proceed with pureed nectar thick diet and aspiration precautions - Continue PPI - Keep head of bed elevated, especially during and after meals - Continue home medications - DVT PPx
--- NOTE | 2017-09-26 10:56 | Discharge Summary ---
Visit Information Visit Dates Admission Date: 09/21/17 Discharge Date: 09/27/17 Hospital Course Course Attending Physician: Elena Tay MD Primary Care Physician: Natali Hurst MD Hospital Course: 82M PMH of HLD, dementia, dysphagia, nephrolithiasis, neck arthritis, and bronchitis who presented with 1 day of weakness, lethargy, and altered mental status. Further workup revealed left lower lobe pneumonia as shown by infiltration on the x-ray associated with leukocytosis up to 14,000. Given that the patient has a history of dysphagia and she failed swallowing eval in the past, she most likely has aspiration pneumonia. The patient was treated with IV Unasyn after which leukocytosis resolved and her mentation improved. In the past patient failed modified barium swallow, she failed again during this admission. After discussing the benefits and risk of PEG tube, the family decided to avoid any aggressive measurements and proceed with pure nectar and thickened diet. There were instructed to keep the head elevated during and for 1 hour after meals. Psych was consulted for dementia, agitation, and depression. After we excluded reversible causes as B12, TSH, and electrolyte abnormality, we start patient on his citalopram and gabapentin as per psych recommendations. Psych recommended avoiding all sedative due to increased risk of delirium and falls. If the patient gets severely agitated or violent one should consider "dependent 12.5 mg no more than 2 doses daily. As part of pneumonia workup a chest CT was done and revealed 0.5 cm nodules. Recommended follow-up in 12 months with another chest CT to rule out malignancy. Allergies: Coded Allergies: acetaminophen (Mild, RASH 09/21/17) Disposition Summary Disposition Principal Diagnosis: Aspiration pneumonia Additional Diagnosis: Agitation and depression Discharge Disposition: SNF Discharge Instructions General Discharge Information Code Status: Do Not Resucitate/Intubat Patient's Diet: High risk of aspiration, patient will need to be in pure diet and nectar liquid. Patient's Activity: As tolerated Follow-Up Instructions/Appts: Please follow-up with the primary care doctor within 1-2 weeks Please follow-up with psychiatric she service post discharge. Medications at Discharge Discharge Medications: Continue taking these medications: Simvastatin (Simvastatin*) 40 MG TABLET 1 Tablet ORAL Every Morning Aspirin (Aspirin*) 81 MG TAB.CHEW 1 Tablet ORAL DAILY Cyanocobalamin (Vitamin B-12) 1,000 MCG TABLET 1 Tablet ORAL DAILY Start taking the following new medications: Gabapentin (Gabapentin) 100 MG CAPSULE 1 Capsule ORAL EVERY 8 HOURS Qty = 30 No Refills Escitalopram Oxalate (Lexapro) 5 MG TABLET 0.5 Tablet ORAL DAILY Qty = 30 No Refills Instructions: Hold for hyponatremia. Hold for QTc greater than 475 mS. Ramelteon (Rozerem) 8 MG TABLET 1 Tablet ORAL AT BEDTIME NEEDED as needed for INSOMNIA Qty = 30 No Refills Copies To: Natali BUSH,Natali Hurst MD,Natali
[2017-09-26 14:54] VITALS: BP 134/70
[2017-09-26 22:32] VITALS: BP 108/52
[2017-09-27 06:15] VITALS: BP 128/74
--- NOTE | 2017-09-27 07:10 | PN- Housestaff ---
DiegoLopez 09/27/17 0707: Subjective Follow-up For: Aspiration pneumonia Metabolic encephalopathy Subjective: No overnight events. Patient remained afebrile. seen and examined this morning. Patient having hospital monitor. Patient denied any chest pain, short of breath, nausea, vomiting, fever, abdominal pain dysuria. Possible discharge today. Review of Systems Constitutional: Reports: no symptoms. EENTM: Reports: no symptoms. Cardiovascular: Reports: no symptoms. Respiratory: Reports: no symptoms. Gastrointestinal: Reports: no symptoms. Genitourinary: Reports: no symptoms. Neurological/Psychological: Reports: no symptoms. Objective Last 24 Hrs of Vital Signs/I&O Vital Signs Date Time Temp Pulse Resp B/P B/P Pulse O2 O2 Flow FiO2 Mean Ox Delivery Rate 09/27 0615 97.8 62 20 128/74 98 Room Air 09/26 2232 98.0 80 19 108/52 94 Room Air 09/26 1454 97.6 70 20 134/70 95 Room Air Intake & Output 09/27 1600 09/27 0800 09/27 0000 Intake Total 60 Output Total Balance 60 Intake, Oral 60 Patient 178 lb Weight Physical Exam General Appearance: Alert, Cooperative Skin Temp/Moisture Exam: Warm/Dry Sepsis Skin Exam (color): Normal for Ethnicity HEENT: Atraumatic, PERRLA, EOMI Neck: Supple Cardiovascular: Normal S1, Normal S2 Lungs: Clear to Auscultation Abdomen: Soft, No Tenderness Neurological: Normal Speech, Normal Tone Extremities: No Edema Assessment/Plan Assessment: 82-year-old male with a past medical history of dementia, worsening dysphagia, arthritis and hyperlipidemia presenting by EMS from home for chief complaint of weakness found to have possible aspiration pneumonia on imaging. Patient is being followed on general medicine floor for:- Aspiration pneumonia: -As patient having dysphagia as reported by the family members. -Completed 5 days of unasyn. -Head end elevation to prevent aspiration. -Aspiration precautions. -Prophylactic PPI therapy. -Avoid any delirium triggered medication. -Continue aspirin. -lunchroom monitor Metabolic encephalopathy: -Could be multifactorial, aspiration pneumonia, medications or UTI. -UA is negative. No growth in urine. -Avoid delirium triggered medications. Oropharyngeal dysphagia: -Patient failed modified barium swallow eval. Matter was discussed with family and they don't want PEG at this time as its not in patient's best interest and they agreed to go with puree and nector thick diet. History of hyperlipidemia: -We will continue Lipitor. DVT Prophylaxis: Mechanical and Lovenox. CODE STATUS; DNR/intub Problem List: 1. Aspiration pneumonia Pain Ratin Pain Location: none Pain Goal: Remain pain free Pain Plan: pain pathway Tomorrow's Labs & Rationales: none Maggi BUSHTreasurelaz 09/27/17 1200: Attending MD Review Statement Attending Statement Attending MD Statement: examined this patient, discuss w/resident/PA/CORE MAKER, agreed w/resident/PA/CORE MAKER, reviewed EMR data (avail) Attending Assessment/Plan: 82M PMH HLD, dementia presenting with 1 day of weakness and lethargy, found to have LLL infiltrate, WBC 14, treated with Unasyn and IV fluids, with improvement in mental status. Per family the patient has had issues with swallowing in the past, and was unable to complete a modified barium swallow 5 years ago. Much improved today, feels well, labs reviewed. 1. LLL aspiration pneumonia 2. Oropharyngeal dysphagia 3. Alzheimer's dementia 4. Metabolic encephalopathy Plan - Stable for discharge to [facility] - Continue all new psychiatric medications - Continue Unasyn, augmentin on discharge - Seen by speech therapy, failed modified barium swallow. After discussion with patient and family, will not pursue PEG at this time as it is not in the patient 's best interest, and will proceed with pureed nectar thick diet and aspiration precautions - Continue PPI - Keep head of bed elevated, especially during and after meals - Continue home medications
[2017-09-27] MEDS ORDERED: AUGMENTIN 875-1 EACH PO ×2 (11:02→12:35)
[2017-09-27 12:57] VITALS: BP 128/74
== END 2017-09-27 15:06 | DRG 177 ==
LOC: ERH 20:40 → ERHI 23:51 → 2NB 23:51 → ENRESERV 09-22 07:59 → ERHI 09-22 08:54 → ENTRNSPT 09-22 09:05 → EDTRNSPT 09-22 09:42 → EDTRNSPTSTS 09-22 09:42 → CMPTRNSPT 09-22 10:02 → 2NB 09-22 10:06
PROVIDERS: Emergency Medicine; Student in an Organized Health Care Education/Training Program
DX: J69.0 Pneumonitis due to inhalation of food and vomit (principal); G93.41 Metabolic encephalopathy; R13.12 Dysphagia, oropharyngeal phase; F03.90 Unspecified dementia, unspecified severity, without behavioral disturbance, psychotic disturbance, mood disturbance, and anxiety; R35.0 Frequency of micturition; E78.5 Hyperlipidemia, unspecified; N20.0 Calculus of kidney; M46.90 Unspecified inflammatory spondylopathy, site unspecified; J40 Bronchitis, not specified as acute or chronic; D72.829 Elevated white blood cell count, unspecified; F32.9 Major depressive disorder, single episode, unspecified; Z66 Do not resuscitate; G30.9 Alzheimer's disease, unspecified; F02.80 Dementia in other diseases classified elsewhere, unspecified severity, without behavioral disturbance, psychotic disturbance, mood disturbance, and anxiety
CPT/HCPCS: 2NBP; ERO; 36415; 71046; 74177; 74230; 81001; 81003; 82436; 87040; 87070; 87086; 87804; 87804-59; 93005; 93010; 99232; J1650; J3490; J7042

== ENCOUNTER 2017-11-30 20:22 | Inpatient (IN) | payer OTHER, MEDICARE ==
[~2017-11-30] VITALS: Ht 177.8 cm; Wt 74.8 kg
[~2017-11-30 20:22] MED LIST changes: +AUGMENTIN 875-1 EACH PO; +GABAPENTIN100 M2 PO; +LEXAPRO5 M1 PO; +ROZEREM8 M1 PO; +VITAMIN B-121000 MC3 PO
--- NOTE | 2017-11-30 20:28 | ED MVC/FALL/TRAUMA COMPLAINT ---
History of Present Illness General Chief Complaint: Fall Stated Complaint: BIBA FOR TRIP AND FALL Source: patient Exam Limitations: dementia Vital Signs & Intake/Output Vital Signs & Intake/Output Vital Signs Date Time Temp Pulse Resp B/P B/P Pulse O2 O2 Flow FiO2 Mean Ox Delivery Rate 12/01 0633 98.2 82 20 109/55 97 Room Air 12/01 0100 97.2 94 20 128/87 96 Room Air 11/30 2101 97.6 106 18 121/82 95 Room Air ED Intake and Output 12/01 0000 11/30 1200 Intake Total Output Total Balance Patient 165 lb Weight Weight Reported by Patient Measurement Method Allergies Coded Allergies: acetaminophen (Mild, RASH 11/30/17) Reconcile Medications Amoxicillin/Potassium Clav (Augmentin 875-125 Tablet) 875 MG-125 MG TABLET 1 TAB PO BID Aspiration pneumonia Aspirin (Aspirin*) 81 MG TAB.CHEW 1 TAB PO DAILY HEART HEALTH (Reported) Cyanocobalamin (Vitamin B-12) 1,000 MCG TABLET 1 TAB PO DAILY SUPPLEMENT ( Reported) Escitalopram Oxalate (Lexapro) 5 MG TABLET 0.5 TAB PO DAILY Depression Hold for hyponatremia. Hold for QTc greater than 475 mS. Gabapentin 100 MG CAPSULE 1 CAP PO Q8 Anxiety off label use Ramelteon (Rozerem) 8 MG TABLET 1 TAB PO AT BEDTIME NEEDED PRN INSOMNIA Simvastatin (Simvastatin*) 40 MG TABLET 1 TAB PO QAM CHOLESTEROL (Reported) Triage Nurses Notes Reviewed? yes Onset: Abrupt Duration: minute(s): Timing: single episode today Severity: mild Injuries/Fall Location: head Method of Injury: fall Loss of Consciousness: no loss of consciousness Modifying Factors: Improves With: rest. Associated Symptoms: laceration on forehead HPI: 82 YO GENTLEMAN h/o dementia, h/o aspiration pneumonia/poor swallowing, presents after a fall from his walker. Per the medics, his roommate saw him fall, due to unsteady gait. He hit his head. He did not lose consciousness. He was able to ambulate afterwards. He notes no pain, other than the laceration on his forehead. (Brynn BUSH,Dexter Ramos) Past History Travel History Traveled to [place] past 21 day No Medical History Any Pertinent Medical History? see below for history Neurological: dementia EENT: NONE Cardiovascular: hyperlipidemia Respiratory: bronchitis Gastrointestinal: DYSPHAGIA Hepatic: NONE Renal: nephrolithiasis Musculoskeletal: osteoarthritis, arthritis of neck Psychiatric: NONE Endocrine: NONE Blood Disorders: NONE Cancer(s): NONE FAST FOOD SHIFT SUPERVISOR/Reproductive: NONE History of MRSA: No History of VRE: No History of CDIFF: No Influenza Vaccine: 05/18/17 Surgical History Surgical History: Right inguinal area surgery Psychosocial History Who do you live with Family Services at Home None What is your primary language Estonian Family History Family History, If Any: SISTER Relation not specified for: FH: HTN (hypertension) Hx Contributory? No (Dexter Swain MD) Review of Systems Review of Systems Constitutional: Reports: no symptoms. Eyes: Reports: no symptoms. Ears, Nose, Throat, Mouth: Reports: no symptoms. Respiratory: Reports: no symptoms. Cardiovascular: Reports: no symptoms. Gastrointestinal/Abdominal: Reports: no symptoms. Genitourinary: Reports: no symptoms. Musculoskeletal: Reports: no symptoms. Skin: Reports: no symptoms. Neurological/Psychological: Reports: no symptoms. All Other Systems: Reviewed and Negative (Dexter Swain MD) Physical Exam Physical Exam General Appearance: well developed/nourished, no apparent distress Head: laceration on forehead 5cm, irregular. no sign of infection Eyes: Bilateral: normal appearance, PERRL, EOMI. Ears, Nose, Throat, Mouth: hearing grossly normal, moist mucous membrane Neck: normal inspection, supple, full range of motion Respiratory: normal breath sounds, chest non-tender, no respiratory distress, quiet respiration, lungs clear Cardiovascular: regular rate/rhythm Gastrointestinal: normal bowel sounds, soft, non-tender Back: normal inspection, normal range of motion Extremities: normal range of motion Neurologic/Psych: no motor/sensory deficits, awake, alert, axox1 Core Measures ACS in differential dx? No CVA/TIA Diagnosis No Sepsis Present: No Sepsis Focused Exam Completed? No (Dexter Swain MD) Progress Differential Diagnosis: C/T/L spine injury, ext injury, ICH Plan of Care: Orders Procedure Date/time Status Regular Diet 12/01 L Active Full Liquid Diet 12/01 B Active Misc Message 12/01 1057 Active ED Holding Orders 12/01 1057 Active Admit to inpatient 12/01 1057 Active Vital Signs 12/01 1057 Active Code Status 12/01 1057 Active Patient Safety Monitor 12/01 0139 Active PT Evaluate & Treat 12/01 0039 Active CASE MANAGEMENT CONSULT 12/01 38 Active Gait Training, 15 Min 12/01 UNK Complete PT EVAL LOW COMPLEX 20 MIN 12/01 UNK Complete CBC WITHOUT DIFFERENTIAL 11/30 2213 Complete TROPONIN LEVEL 12/01 2027 Complete COMPREHENSIVE METABOLIC PANEL 12/01 2027 Complete CBC WITHOUT DIFFERENTIAL 12/01 2027 Complete EKG 12/01 2027 Active Current Medications Sig/Mckenzie Start time Last Medication Dose Stop Time Status Admin Escitalopram Oxalate 2.5 MG DAILY 12/01 1000 UNVr (Lexapro) Gabapentin 100 MG Q8 12/01 0600 UNVr 12/01 (Neurontin) 0659 Laboratory Tests 11/30/17 2300: CBC w Diff NO MAN DIFF REQ, RBC 4.22 L, MCV 93.0, MCH 30.8, MCHC 33.1, RDW 13.6 , MPV 7.4, Gran % 87.9 H, Lymphocytes % 8.1 L, Monocytes % 3.5, Eosinophils % 0.4, Basophils % 0.1, Absolute Granulocytes 9.1 H, Absolute Lymphocytes 0.8 L, Absolute Monocytes 0.4, Absolute Eosinophils 0, Absolute Basophils 0 11/30/172134: Anion Gap 13, Estimated GFR > 60, BUN/Creatinine Ratio 34.3 H, Glucose 92, Calcium 9.3, Total Bilirubin 1.1, AST 29, ALT 32, Alkaline Phosphatase 81, Troponin I < 0.01, Total Protein 7.2, Albumin 4.2, Globulin 3.0, Albumin/ Globulin Ratio 1.4 Diagnostic Imaging: Viewed by Me: CT Scan. Discussed w/RAD: CT Scan. Radiology Impression: PATIENT: MEGAN COTTON PRESENT AGE: 82 PATIENT ACCOUNT NO: [id number] : 34 LOCATION: [facility] ORDERING PHYSICIAN: Dexter Swain MD SERVICE DATE: 11/30/17 EXAM TYPE: CAT - CT CERV SPINE WO IV CONTRAST; CT HEAD WO IV CONTRAST EXAMINATION: CT HEAD WITHOUT CONTRAST CT CERVICAL SPINE WITHOUT CONTRAST CLINICAL INFORMATION: Head injury. COMPARISON: None available. TECHNIQUE: Contiguous axial imaging was performed from the skullbase to vertex without intravenous administration of contrast. Multidetector helical imaging was performed through the cervical spine. The study is limited due to patient motion artifacts. DLP: 1565.82 mGy-cm. FINDINGS: HEAD: There is no evidence of acute intracranial hemorrhage or territorial infarction. No abnormal mass effect or midline shift is seen. Ambrose to white matter differentiation is well preserved. No extra-axial fluid collections are identified. Generalized parenchymal volume loss is evident. The ventricles are normal in size. There are mild small vessel ischemic changes in the cerebral white matter. The osseous structures and soft tissues are normal. The mastoid air cells are well aerated. There are small retention cysts in the maxillary sinuses. CERVICAL SPINE: No acute fracture or dislocation is identified in the cervical spine. Severe cervical spondylosis is noted with significant multilevel disc space narrowing and endplate osteophyte formation. Osseous ridging and disc bulges contributing to multilevel central canal stenosis and foraminal narrowing. The atlantoaxial articulation is normally maintained. The paraspinal soft tissues are normal. There is mild scarring at the lung apices which are otherwise clear. IMPRESSION: 1. Limited study with motion artifacts. Otherwise, no acute intracranial pathology. 2. No evidence of acute cervical spine traumatic injury. Severe cervical spondylosis. DICTATED BY: James Bosch MD DATE/TIME DICTATED:11/30/172103 MEAT PACKAGER:GALINA DATE/TIME TRANSCRIBED:11/30/172103 CONFIDENTIAL, DO NOT COPY WITHOUT APPROPRIATE AUTHORIZATION. <Electronically signed in Other Vendor System> SIGNED BY: James Bosch MD 11/30/172120 CXR Impression: PATIENT: MEGAN COTTON PRESENT AGE: 82 PATIENT ACCOUNT NO: [id number] : 34 LOCATION: [facility] ORDERING PHYSICIAN: Dexter Swain MD SERVICE DATE: 11/30/17 EXAM TYPE: RAD - XRY- PORTABLE CHEST XRAY EXAMINATION: XR PORTABLE CHEST CLINICAL INFORMATION: Trauma. COMPARISON: Chest x-ray 09/21/2017 , 06/25/2017. CT of chest 09/21/2017. TECHNIQUE: Portable frontal view of the chest was obtained. 10:17 PM FINDINGS: Lungs are clear. No pulmonary vascular congestion. There is no pleural effusion. The heart size is normal. The cardiac and mediastinal contours are normal. There are calcifications of the thoracic aorta. There are multilevel degenerative changes of dorsal spine. IMPRESSION: Unremarkable examination. DICTATED BY: Tony Christensen MD DATE/TIME DICTATED:11/30/172228 MEAT PACKAGER:GALINA DATE/TIME TRANSCRIBED:11/30/172228 CONFIDENTIAL, DO NOT COPY WITHOUT APPROPRIATE AUTHORIZATION. <Electronically signed in Other Vendor System> SIGNED BY: Tony Christensen MD 11/30/172234, PATIENT: MEGAN COTTON PRESENT AGE: 82 PATIENT ACCOUNT NO: [id number] : 34 LOCATION: [facility] ORDERING PHYSICIAN: Dexter Swain MD SERVICE DATE: EXAM TYPE: RAD - XRY-AP PELVIS EXAMINATION: XR PELVIS CLINICAL INFORMATION: Trauma COMPARISON: None TECHNIQUE: AP view of the pelvis. FINDINGS: The bones and soft tissues are normal. No fracture. Sacroiliac joints are normal. Pubic symphysis is normal. There is evidence of arthritis involving both hip joints. No abnormal soft tissue calcifications. Significant facet arthritis is seen in the lower lumbar spine. IMPRESSION: No fracture or dislocation. DICTATED BY: Bishop Nolan MD DATE/TIME DICTATED:11/30/172230 MEAT PACKAGER:GALINA DATE/TIME TRANSCRIBED:11/30/172230 CONFIDENTIAL, DO NOT COPY WITHOUT APPROPRIATE AUTHORIZATION. <Electronically signed in Other Vendor System> SIGNED BY: Bishop Nolan MD 11/30/172235 Initial ED EKG: rbbb, lpfb, no acute change from prior. Hand-Off Endorsed To: Chico Hunter MD Endorsed Time: 0700 Pending: consult, labs (Dexter Swain MD) Departure Departure Condition: Stable Clinical Impression Primary Impression: Fall Secondary Impressions: Forehead laceration, Head injury, Unstable gait Referrals: Natali Hurst MD Departure Forms: Customer Survey General Discharge Information Comments 12/01/17, 0:30am... discussed with family... labs/studies are benign... pt unsafe to go home .... merits case manageer consult and PT evaluation. (Dexter Swain MD) Departure Disposition: STILL A PATIENT Admission Note Spoke With: Candelaria Henderson MD Documentation of Exam: Documentation of any treatments & extenuating circumstances including Concerns Regarding Discharge (functional status, medication knowledge or non-compliance, living conditions, etc.) that warrant an admission rather than observation: Patient presents status post fall with a laceration. Given the patient's advanced age and history of dementia he is unsafe to return home given his high risk of falling and his inability to follow outpatient treatment instructions and his gait instability resulting in the fall. This patient now requires hospitalization for management of his laceration, physical therapy evaluation for his gait instability, neurology and psychiatry consultation given this patient's dementia and for possible behavioral issues. Patient's medications should be review of her potential side effects impacting on his functional capacity. I feel this patient will require a multiple day hospitalization. (Elsa BUSH,Chico Melton) Procedures Laceration/Wound Repair Laceration/Wound Repair: Wound Location: head Wound's Depth, Shape: irregular, into muscle Wound Length (cm): 5 Wound Explored: clean Irrigated w/ Saline (ccs): 100 Betadine Prep? No Wound Repaired With: Steri-strips, Dermabond Date of Last Tetanus: 12/01/17 (Brynn BUSH,Dexter Ramos)
--- NOTE | 2017-11-30 21:21 | CT SCAN REPORT ---
EXAMINATION: CT HEAD WITHOUT CONTRAST CT CERVICAL SPINE WITHOUT CONTRAST CLINICAL INFORMATION: Head injury. COMPARISON: None available. TECHNIQUE: Contiguous axial imaging was performed from the skullbase to vertex without intravenous administration of contrast. Multidetector helical imaging was performed through the cervical spine. The study is limited due to patient motion artifacts. DLP: 1565.82 mGy-cm. FINDINGS: HEAD: There is no evidence of acute intracranial hemorrhage or territorial infarction. No abnormal mass effect or midline shift is seen. Ambrose to white matter differentiation is well preserved. No extra-axial fluid collections are identified. Generalized parenchymal volume loss is evident. The ventricles are normal in size. There are mild small vessel ischemic changes in the cerebral white matter. The osseous structures and soft tissues are normal. The mastoid air cells are well aerated. There are small retention cysts in the maxillary sinuses. CERVICAL SPINE: No acute fracture or dislocation is identified in the cervical spine. Severe cervical spondylosis is noted with significant multilevel disc space narrowing and endplate osteophyte formation. Osseous ridging and disc bulges contributing to multilevel central canal stenosis and foraminal narrowing. The atlantoaxial articulation is normally maintained. The paraspinal soft tissues are normal. There is mild scarring at the lung apices which are otherwise clear. IMPRESSION: 1. Limited study with motion artifacts. Otherwise, no acute intracranial pathology. 2. No evidence of acute cervical spine traumatic injury. Severe cervical spondylosis.
--- NOTE | 2017-11-30 22:35 | RADIOLOGY REPORT ---
EXAMINATION: XR PORTABLE CHEST CLINICAL INFORMATION: Trauma. COMPARISON: Chest x-ray 09/21/2017 , 06/25/2017. CT of chest 09/21/2017. TECHNIQUE: Portable frontal view of the chest was obtained. 10:17 PM FINDINGS: Lungs are clear. No pulmonary vascular congestion. There is no pleural effusion. The heart size is normal. The cardiac and mediastinal contours are normal. There are calcifications of the thoracic aorta. There are multilevel degenerative changes of dorsal spine. IMPRESSION: Unremarkable examination.
--- NOTE | 2017-11-30 22:36 | RADIOLOGY REPORT ---
EXAMINATION: XR PELVIS CLINICAL INFORMATION: Trauma COMPARISON: None TECHNIQUE: AP view of the pelvis. FINDINGS: The bones and soft tissues are normal. No fracture. Sacroiliac joints are normal. Pubic symphysis is normal. There is evidence of arthritis involving both hip joints. No abnormal soft tissue calcifications. Significant facet arthritis is seen in the lower lumbar spine. IMPRESSION: No fracture or dislocation.
[2017-11-30 23:12] LABS: ABSOLUTE BASOPHIL COUNT 0 /CUMM (0.0-0.2); ABSOLUTE EOSINOPHIL COUNT 0 /CUMM (0.0-0.7); ABSOLUTE GRANULOCYTE CT 9.1 /CUMM (1.4-6.5); ABSOLUTE LYMPH COUNT 0.8 /CUMM (1.2-3.4); ABSOLUTE MONOCYTE COUNT 0.4 /CUMM (0.10-0.60); BASOPHIL % 0.1 % (0.0-2.0); EOSINOPHIL % 0.4 % (0-5); HEMATOCRIT 39.2 % (42-52); MEAN CORPUSCULAR HGB 30.8 PG (27.0-31.0); MEAN CORPUSCULAR HGB CONC 33.1 G/DL (33.0-37.0); MEAN PLATELET VOLUME 7.4 FL (7.4-10.4); PLATELET COUNT 230 /CUMM (130-400); RBC DISTRIBUTION WIDTH 13.6 % (11.5-14.5); RED BLOOD CELL CT 4.22 /CUMM (4.70-6.10); WHITE BLOOD CELL COUNT 10.3 /CUMM (4.8-10.8)
[2017-11-30 23:24] LABS: GRANULOCYTE % 87.9 % (42.2-75.2)
--- NOTE | 2017-12-01 11:10 | History & Physical ---
Niya BUSH,[facility] 12/01/17 1110: General Information and HPI MD Statement: I have seen and personally examined MEGAN GERARDO and documented this H&P. The patient is a 82 year old M who presented with a patient stated chief complaint of Fall. Source of Information: patient, family, old records Exam Limitations: no limitations, dementia History of Present Illness: Mr Gerardo is an 82-year-old male with a past medical history of dementia and lipidemia who was brought in by ambulance from [facility] after experiencing a fall on 11/30/2017. Much of the clinical history was obtained from the patient 's daughter Samanta. It was reported that the patient was attempting to use the restroom and using his walker however when it may have got caught o the lip of the floor which resulted in a fall. The patient's 93-year-old roommate notified staff and prompting EMS to be called in him to be brought into the emergency department. Patient was previously admitted to [facility] September 21 to 09/23/2017 and treated for aspiration pneumonia after presenting for weakness lethargy and altered mental status as well as leukocytosis up to 14,000. At the time of our clinical interaction the patient was alert and able to answer questions appropriately. He did not have any complaints and stated he was tired owing to the fact that he never got much sleep last evening. He denied any pain, chest discomfort, fever, nausea, vomiting. Did not recall experiencing a fall and was unable to provide any additional history. Allergies/Medications Allergies: Coded Allergies: acetaminophen (Mild, RASH 11/30/17) Home Med list Amoxicillin/Potassium Clav (Augmentin 875-125 Tablet) 875 MG-125 MG TABLET 1 TAB PO BID Aspiration pneumonia Aspirin (Aspirin*) 81 MG TAB.CHEW 1 TAB PO DAILY HEART HEALTH (Reported) Cyanocobalamin (Vitamin B-12) 1,000 MCG TABLET 1 TAB PO DAILY SUPPLEMENT ( Reported) Escitalopram Oxalate (Lexapro) 5 MG TABLET 0.5 TAB PO DAILY Depression Hold for hyponatremia. Hold for QTc greater than 475 mS. Gabapentin 100 MG CAPSULE 1 CAP PO Q8 Anxiety off label use Simvastatin (Simvastatin*) 40 MG TABLET 1 TAB PO QAM CHOLESTEROL (Reported) Compliance With Home Meds: GOOD Past History Travel History Traveled to [place] past 21 day No Medical History Neurological: dementia EENT: NONE Cardiovascular: hyperlipidemia Respiratory: bronchitis, ASPIRATION PNEUMONIA Gastrointestinal: DYSPHAGIA Hepatic: NONE Renal: nephrolithiasis Musculoskeletal: osteoarthritis, arthritis of neck Psychiatric: NONE Endocrine: NONE Blood Disorders: NONE Cancer(s): NONE LITERARY WRITER/Reproductive: NONE History of MRSA: No History of VRE: No History of CDIFF: No Isolation History: Standard Influenza Vaccine: 05/18/17 Tetanus Vaccine: 12/01/17 Surgical History Surgical History: Right inguinal area surgery Past Family/Social History Family History Relations & Conditions if any SISTER Relation not specified for: FH: HTN (hypertension) Psychosocial History Where do you live? Extended Care Facility Services at Home: None Primary Language: Hebrew Functional Ability ADLs Needs Assist: dressing, eating, toileting, bathing. Ambulation: walker IADLs Needs Assist: shopping, housework, finances, food prep, telephone, transportation, medication admin. Review of Systems Review of Systems Constitutional: Reports: see HPI. Exam & Diagnostic Data Last 24 Hrs of Vital Signs/I&O Vital Signs Date Time Temp Pulse Resp B/P B/P Pulse O2 O2 Flow FiO2 Mean Ox Delivery Rate 12/01 0633 98.2 82 20 109/55 97 Room Air 12/01 0100 97.2 94 20 128/87 96 Room Air 11/30 2101 97.6 106 18 121/82 95 Room Air Intake & Output 12/01 1600 12/01 0800 12/01 0000 Intake Total Output Total 200 Balance -200 Output, Urine 200 Patient 74.843 kg Weight Weight Reported by Patient Measurement Method Physical Exam General Appearance Alert, Oriented to place, not to time or person, Laceration on forehead. No Erythema. No Bleed. Sterri Strips. HEENT PERRLA, EOMI, Mucous Membr. moist/pink Neck Supple Cardiovascular Normal S1, Normal S2 Lungs Normal Air Movement, Inspiratory Wheezing Abdomen Normal Bowel Sounds, Soft, No Tenderness Neurological Normal Speech, Strength at 5/5 X4 Ext, Cranial Nerves 3-12 NL, Gait testing deferred, PT Eval to be finalized Extremities No Clubbing, No Cyanosis, No Edema Vascular Normal Pulses Last 24 Hrs of Labs/Harley: Laboratory Tests 11/30/17 2300: CBC w Diff NO MAN DIFF REQ, RBC 4.22 L, MCV 93.0, MCH 30.8, MCHC 33.1, RDW 13.6 , MPV 7.4, Gran % 87.9 H, Lymphocytes % 8.1 L, Monocytes % 3.5, Eosinophils % 0.4, Basophils % 0.1, Absolute Granulocytes 9.1 H, Absolute Lymphocytes 0.8 L, Absolute Monocytes 0.4, Absolute Eosinophils 0, Absolute Basophils 0 11/30/172134: Anion Gap 13, Estimated GFR > 60, BUN/Creatinine Ratio 34.3 H, Glucose 92, Calcium 9.3, Total Bilirubin 1.1, AST 29, ALT 32, Alkaline Phosphatase 81, Troponin I < 0.01, Total Protein 7.2, Albumin 4.2, Globulin 3.0, Albumin/ Globulin Ratio 1.4 Diagnostic Data EKG Results Rate 109 KY 192 QTC: 464 Sinus Tachycardia Other Results SERVICE DATE: 11/30/17 EXAM TYPE: CAT - CT CERV SPINE WO IV CONTRAST; CT HEAD WO IV CONTRAST IMPRESSION: 1. Limited study with motion artifacts. Otherwise, no acute intracranial pathology. 2. No evidence of acute cervical spine traumatic injury. Severe cervical spondylosis. DICTATED BY: James Bosch MD SERVICE DATE: 11/30/17 EXAM TYPE: RAD - XRY-AP PELVIS IMPRESSION: No fracture or dislocation. DICTATED BY: Bishop Nolan MD Assessment/Plan Assessment: Mr Gerardo is an 82-year-old male with a past medical history of dementia and lipidemia who was brought in by ambulance from shelter [facility] after experiencing a fall on 11/30/2017. Clinical history appears that the fall may have been mechanical in nature perhaps owing to decreased by mouth intake. We will admit the patient to the Gen. medical service and address the following problems. #Fall likely mechanical potentially due to generalized deconditioning. #History of aspiration risk. #Hyperlipidemia #Dementia #Mood disorder depression and anxiety. Admit to general medicine. Maintain fall precautions. Maintain aspiration precautions. Continue citalopram 2.5 mg for anxiety and depression. May consider increasing this to 5 mg as per previous psych recommendations. Continue Gabapentin 100 mg by mouth ordered for anxiety. Hold sedating meds. Discontinue Remeron. Consider low-dose quetiapine 12.5 mg to 2 times per day if additional mood stabilization required. May consider gentle hydration if warranted. Failed last swallow evaluation and had to undergo modified barium swallow which showed delayed swallow initiation resulting in consistent spillage. Spoke with daughter who recommends that patient should be continued on the diet that he has at facility despite aspiration risk. Keep the head elevated during and for 1 hour after meals. The patients POA is his daughter Samanta can be reached on hospital pager #[phone]. Number is [phone] (home) (cell) [phone]. PT Consultation DVT PPX Lovenox Code: DNR/DNR As Ranked By This Provider Problem List: 1. Forehead laceration 2. Unstable gait 3. Head injury 4. Fall Core Measures/Misc (05/08) Acute Coronary Syndrome ACS Diagnosis: No Congestive Heart Failure Congestive Heart Failure Diagnosis No Cerebrovascular Accident CVA/TIA Diagnosis: No VTE (View Protocol) VTE Risk Factors Age>40 No Mechanical VTE Prophylaxis d/t N/A MechProphylax Ordered No VTE Pharm Prophylaxis d/t NA PharmProphylax ordered Sepsis (View protocol) Sepsis Present: No Candelaria Henderson MD 12/01/17 1732: Attending MD Review Statement Attending Statement Attending MD Statement: examined this patient, discuss w/resident/PA/COAL BAGGER, agreed w/resident/PA/COAL BAGGER, discussed with family, reviewed EMR data (avail), discussed with nursing, discussed with case mgmt, amended to note Attending Assessment/Plan: Patient seen and examined. His issac family was present at the bedside. he is a gentleman known to me from prior admissions here at [facility]. He was brought in for evaluation following a fall at his assisted living facility. Circumstances surrounding the fall are unclear. His roommate had given on account that appears consistent with a mechanical fall however it appears that the facility given different accounts. Patient was brought to the emergency room for evaluation. He was found lethargic but oriented 3. He was found to have a laceration on the forehead. Head CT showed no acute intracranial process. Due to inability to safely ambulate the patient in the emergency room decision was made to hospitalize patient for evaluation by physical therapy the plan is safe disposition. He was referred to the medical service for further evaluation. Patient seen and examined. He was very downcast. He reported frustration with his ongoing medical condition. Apparently he was admitted earlier in the year to [facility] for an aspiration pneumonia. He failed swallow evaluation on alternate means of nutrition was recommended. Family opted to continue to feed him orally and apparently has been doing well with this. He was discharged to assisted facility and few weeks ago was transitioned to an assisted living facility. He apparently fell about a week ago with no injury today and this episode that has led to hospitalization. He is frustrated about his loss of independence. On examination he has no focal neurologic deficits. There is a Steri-Strip over the laceration on the forehead. It is not bleeding. There is no surrounding cellulitis. Heart sounds are regular. Lungs are clear bilaterally. He has no peripheral edema. CBCs and electrolytes are within normal limits. It is noted that he arrived emergency room afebrile hemodynamically stable. Pressure was in the 120s when he arrived. During my evaluation he was mildly hypotensive with systolic blood pressure in the high 90s. He was lethargic but oriented 3. Family reports that his appetite has been good at the assisted living facility however overnight and today his intake has been poor. Problems: 1. Fall; appears mechanical per reports of his roommate. 2. Hypotension; probably secondary to poor oral intake. 3. Dementia; family states that the assisted living facility has reported periods of agitation on some occasions. 4. Dysphasia; speech therapist has recommended alternate means of nutrition. Family has opted to continue patient on oral intake. For the most part he tolerates it would be to admit that he gets congested breath sounds often. Plan: -Admit to inpatient General medical service. -Physical therapy evaluation. If improved strength while here with physical therapy service he may be transitioned back to his assisted living facility. If however he does not improve a safe discharge plan may involve him going to a assisted facility. -Hydrate with D5 half normal saline at 100 cc an hour. Monitor for improvement of blood pressure. Encourage oral intake. -Check orthostatic vitals. -Patient was discharged on Remeron to the assisted facility. It appears this medication was discontinued there. Family states that he usually sleeps well at night and does not require any sleep aid. Please discontinue Remeron. -DVT prophylaxis with heparin subcu. -Avoid delirium triggers. Redirect patient as needed. -Continue patient on a modified diet he was on at the assisted facility.
[2017-12-01 16:59] VITALS: BP 99/60
--- NOTE | 2017-12-01 17:32 | Admission Certification ---
Admission Certification Certification Statement - As attending physician, I certify that at the time of - admission, based on clinical presentation, severity of - symptoms, need for further diagnostic testing and - therapeutic interventions, and risk of adverse outcomes - without in-hospital treatment, in my clinical assessment, - this patient requires an acute hospital stay for a minimum - of two nights or longer. I have also considered psychsocial - factors such as support system, advanced age, financial - issues, cognitive issues, and failed out-patient treatments, - past re-admission history, safety of patient, and lack of - compliance as applicable. Specific rationale supporting this admission is: Patient requires hospitalization due to inability to safely ambulate following his fall. He is also hypotensive and this will need to be evaluated further.
[2017-12-01 22:02] VITALS: BP 106/40
[2017-12-02 06:17] VITALS: BP 110/62
--- NOTE | 2017-12-02 07:01 | PN- Housestaff ---
David Dos Santos MD,[facility] 12/02/17 0700: Subjective Follow-up For: Deconditioning weakness Subjective: Patient visited today, pleasantly demented old man, was lying in bed comfortably in no acute distress, was alert, partially oriented. No fever or chills, no shortness of breathing, no chest pain, no other events. PT recommended STR. day 1 of admission, Patient still not safe to be discharged. Review of Systems Constitutional: Reports: see HPI. Objective Last 24 Hrs of Vital Signs/I&O Vital Signs Date Time Temp Pulse Resp B/P B/P Pulse O2 O2 Flow FiO2 Mean Ox Delivery Rate 12/03 0628 98.0 68 18 102/58 96 Room Air 12/02 2240 98.7 70 18 108/62 94 Room Air 12/02 1434 98.5 69 18 100/60 95 Room Air Intake & Output 12/03 1600 12/03 0800 12/03 0000 Intake Total 180 120 Output Total 150 Balance 180 -30 Intake, Oral 180 120 Number 0 0 Bowel Movements Output, Urine 150 Physical Exam General Appearance: Alert, Cooperative, No Acute Distress, partially oriented Skin: No Significant Lesion Skin Temp/Moisture Exam: Warm/Dry HEENT: Atraumatic, EOMI Cardiovascular: Normal S1, Normal S2 Lungs: Normal Air Movement Abdomen: Soft, No Tenderness Neurological: Normal Speech, Strength at 5/5 X4 Ext Extremities: No Edema Current Medications: Current Medications Sig/Mckenzie Start time Last Medication Dose Route Stop Time Status Admin Aspirin 81 MG DAILY 12/01 1212 AC 12/03 PO 0919 Atorvastatin Calcium 20 MG 1700 12/01 1700 AC 12/02 PO 1736 Enoxaparin Sodium 40 MG DAILY 12/01 1430 AC 12/03 SC 0920 Escitalopram Oxalate 2.5 MG DAILY 12/01 1128 AC 12/03 PO 0920 Gabapentin 100 MG Q8 12/01 0600 AC 12/03 PO 0620 Patient Medication 1 ED ONE ONE 12/02 1515 [facility] ED 12/02 1516 Assessment/Plan Assessment: Mr Gerardo is an 82-year-old male presented to ED after a mechanical fall decreased PO intake PMH: dementia and lipidemia Patient was admitted to floor for management of following conditions: #Fall likely mechanical potentially due to generalized deconditioning. #History of aspiration risk. #Hyperlipidemia #Dementia #Mood disorder depression and anxiety. - continue Admit to general medicine. - Maintain fall precautions, aspiration precautions. - Continue citalopram 2.5 mg for anxiety and depression. - Continue Gabapentin 100 mg by mouth ordered for anxiety (consider to change to seroquel considering dementia) - Discontinued Remeron. - Consider low-dose quetiapine 12.5 mg to 2 times per day if additional mood stabilization required. - Failed last swallow evaluation and had to undergo modified barium swallow which showed delayed swallow initiation resulting in consistent spillage. Spoke with daughter who recommends that patient should be continued on the diet that he has at facility despite aspiration risk. - Keep the head elevated during and for 1 hour after meals. - still not safe to be discharged - PT consult The patients POA is his daughter Samanta can be reached on hospital pager #[phone]. Number is [phone] (home) (cell) [phone]. DVT PPX Lovenox Code: DNR/DNR Problem List: 1. Weakness 2. Unstable gait Pain Ratin Pain Location: None Pain Goal: Pain 4 or less Pain Plan: Continue current plan Tomorrow's Labs & Rationales: None Beatriz BUSH,[place] 12/02/17 1222: Attending MD Review Statement Attending Statement Attending MD Statement: examined this patient, discuss w/resident/PA/COPRA SAMPLER, agreed w/resident/PA/COPRA SAMPLER, discussed with family, reviewed EMR data (avail), discussed with nursing, discussed with case mgmt, amended to note Attending Assessment/Plan: Patient seen and examined. Family present at the bedside. He appeared to be in better spirits today. Denies any pain. Reports fair appetite and adequate oral intake. Blood pressure has improved following IV rehydration yesterday. He is by spitting with physical therapy and was ambulating around the unit although requiring assistance. Patient will continue to work with physical therapy service. If he is not declared safe enough to be discharged back to his assisted living facility where he was semi-independent, he will need to be discharged to snf facility for short-term rehabilitation. Patient and family are in agreement with this plan.
[2017-12-02 14:34] VITALS: BP 100/60
[2017-12-02 22:40] VITALS: BP 108/62
[2017-12-03 06:28] VITALS: BP 102/58
--- NOTE | 2017-12-03 08:26 | PN- Housestaff ---
See Addendum Subjective Follow-up For: Deconditioning weakness Subjective: Patient visited today, pleasantly demented old man, was lying in bed comfortably in no acute distress, was alert, partially oriented. No fever or chills, no shortness of breathing, no chest pain, no other events. PT recommended STR. day 2 of admission, Patient still not safe to be discharged. we will continue to follow PT and plan discharge after being safe. Review of Systems Constitutional: Reports: no symptoms. Objective Last 24 Hrs of Vital Signs/I&O Vital Signs Date Time Temp Pulse Resp B/P B/P Pulse O2 O2 Flow FiO2 Mean Ox Delivery Rate 12/03 0628 98.0 68 18 102/58 96 Room Air 12/02 2240 98.7 70 18 108/62 94 Room Air 12/02 1434 98.5 69 18 100/60 95 Room Air Intake & Output 12/03 1600 12/03 0800 12/03 0000 Intake Total 180 120 Output Total 150 Balance 180 -30 Intake, Oral 180 120 Number 0 0 Bowel Movements Output, Urine 150 Physical Exam General Appearance: Alert, Cooperative, No Acute Distress Skin: No Significant Lesion HEENT: Atraumatic, EOMI Cardiovascular: Normal S1, Normal S2 Lungs: Clear to Auscultation, Normal Air Movement Abdomen: Soft, No Tenderness Neurological: Normal Speech, Strength at 5/5 X4 Ext Extremities: No Edema Current Medications: Current Medications Sig/Mckenzie Start time Last Medication Dose Route Stop Time Status Admin Aspirin 81 MG DAILY 12/01 1212 AC 12/03 PO 0919 Atorvastatin Calcium 20 MG 1700 12/01 1700 AC 12/02 PO 1736 Enoxaparin Sodium 40 MG DAILY 12/01 1430 AC 12/03 SC 0920 Escitalopram Oxalate 2.5 MG DAILY 12/01 1128 AC 12/03 PO 0920 Gabapentin 100 MG Q8 12/01 0600 AC 12/03 PO 0620 Patient Medication 1 ED ONE ONE 12/02 1515 [facility] ED 12/02 1516 Assessment/Plan Assessment: Mr Gerardo is an 82-year-old male presented to ED after a mechanical fall decreased PO intake PMH: dementia and lipidemia Patient was admitted to floor for management of following conditions: #Fall likely mechanical potentially due to generalized deconditioning. #History of aspiration risk. #Hyperlipidemia #Dementia #Mood disorder depression and anxiety. - continue Admit to general medicine. - Maintain fall precautions, aspiration precautions. - Continue citalopram 2.5 mg for anxiety and depression. - Continue Gabapentin 100 mg by mouth ordered for anxiety (consider to change to seroquel considering dementia) - Discontinued Remeron. - Consider low-dose quetiapine 12.5 mg to 2 times per day if additional mood stabilization required. - Failed last swallow evaluation and had to undergo modified barium swallow which showed delayed swallow initiation resulting in consistent spillage. Spoke with daughter who recommends that patient should be continued on the diet that he has at facility despite aspiration risk. - Keep the head elevated during and for 1 hour after meals. - still not safe to be discharged - PT consult The patients POA is his daughter Samanta can be reached on hospital pager #[phone]. Number is [phone] (home) (cell) [phone]. DVT PPX Lovenox Code: DNR/DNR Problem List: 1. Weakness Pain Ratin Pain Location: None Pain Goal: Pain 4 or less Pain Plan: Continue current plan Tomorrow's Labs & Rationales: CBC BEP
[2017-12-03 14:55] VITALS: BP 110/75
[2017-12-03 23:04] VITALS: BP 120/62
[2017-12-04 06:21] VITALS: BP 118/60
[2017-12-04 08:42] LABS: ABSOLUTE BASOPHIL COUNT 0 /CUMM (0.0-0.2); ABSOLUTE EOSINOPHIL COUNT 0.2 /CUMM (0.0-0.7); ABSOLUTE MONOCYTE COUNT 0.5 /CUMM (0.10-0.60); HEMATOCRIT 34.8 % (42-52); MEAN CORPUSCULAR VOLUME 93.5 FL (80.0-94.0); RED BLOOD CELL CT 3.72 /CUMM (4.70-6.10)
[2017-12-04 08:52] LABS: ABSOLUTE GRANULOCYTE CT 2.5 /CUMM (1.4-6.5); ABSOLUTE LYMPH COUNT 1.1 /CUMM (1.2-3.4); BASOPHIL % 0.6 % (0.0-2.0); EOSINOPHIL % 3.7 % (0-5); GRANULOCYTE % 58.9 % (42.2-75.2); MEAN CORPUSCULAR HGB 31.7 PG (27.0-31.0); MEAN CORPUSCULAR HGB CONC 33.9 G/DL (33.0-37.0); PLATELET COUNT 215 /CUMM (130-400); RBC DISTRIBUTION WIDTH 13.9 % (11.5-14.5)
[2017-12-04 08:57] LABS: WHITE BLOOD CELL COUNT 4.3 /CUMM (4.8-10.8)
--- NOTE | 2017-12-04 09:08 | PN- Housestaff ---
See Addendum Subjective Follow-up For: Deconditioning weakness Subjective: Seen and examined. Resting comfortably. No acute distress. No overnight acute events. Afebrile no shortness of breath chest pain or palpitations. Plan to discharge patient to short-term rehabilitation today. Review of Systems Constitutional: Reports: see HPI. Objective Last 24 Hrs of Vital Signs/I&O Vital Signs Date Time Temp Pulse Resp B/P B/P Pulse O2 O2 Flow FiO2 Mean Ox Delivery Rate 12/04 0621 98.8 62 20 118/60 97 Room Air 12/03 2304 97.8 72 20 120/62 97 12/03 1455 98.0 63 18 110/75 95 Room Air Intake & Output 12/04 1600 12/04 0800 12/04 0000 Intake Total 240 250 Output Total Balance 240 250 Intake, IV 10 Intake, Oral 240 240 Number 1 Bowel Movements Physical Exam General Appearance: Alert Cardiovascular: Normal S1, Normal S2 Lungs: Clear to Auscultation Neurological: Normal Speech Current Medications: Current Medications Sig/Mckenzie Start time Last Medication Dose Route Stop Time Status Admin Aspirin 81 MG DAILY 12/01 1212 AC 12/03 PO 0919 Atorvastatin Calcium 20 MG 1700 12/01 1700 AC 12/03 PO 1613 Enoxaparin Sodium 40 MG DAILY 12/01 1430 AC 12/03 SC 0920 Escitalopram Oxalate 2.5 MG DAILY 12/01 1128 AC 12/03 PO 0920 Gabapentin 100 MG Q8 12/01 0600 AC 12/04 PO 0530 Ibuprofen 400 MG ONCE ONE 12/03 1830 DC PO 12/03 1831 Last 24 Hrs of Lab/Harley Results Last 24 Hrs of Labs/Mics: Laboratory Tests 12/04/17 0758: Anion Gap 11, Estimated GFR > 60, BUN/Creatinine Ratio 23.3, CBC w Diff NO MAN DIFF REQ, RBC 3.72 L, MCV 93.5, MCH 31.7 H, MCHC 33.9, RDW 13.9, MPV 8.0, Gran % 58.9, Lymphocytes % 25.8, Monocytes % 11.0 H, Eosinophils % 3.7, Basophils % 0.6, Absolute Granulocytes 2.5, Absolute Lymphocytes 1.1 L, Absolute Monocytes 0.5, Absolute Eosinophils 0.2, Absolute Basophils 0 Assessment/Plan Assessment: Mr Gerardo is an 82-year-old male presented to ED after a mechanical fall decreased PO intake PMH: dementia and lipidemia Patient was admitted to floor for management of following conditions: #Fall likely mechanical potentially due to generalized deconditioning. #History of aspiration risk. #Hyperlipidemia #Dementia #Mood disorder depression and anxiety. -Maintain fall precautions, aspiration precautions. -Keep the head elevated during and for 1 hour after meals. -Continue escitalopram for anxiety and depression increased to 5 mg from 2.5mg -Continue Gabapentin 100 mg by mouth ordered for anxiety -consider to change to seroquel considering dementia after a Psychiatric evaluation which could be pursued at facility. -Discontinued Remeron. -Pt has Failed last swallow evaluation and had to undergo modified barium swallow which showed delayed swallow initiation resulting in consistent spillage. Dr. Hahn with daughter who recommends that patient should be continued on the diet that he has at facility despite aspiration risk. The patients POA is his daughter Samanta can be reached on hospital pager #[phone]. Number is [phone] (home) (cell) [phone]. DVT PPX Lovenox Code: DNR/DNR Problem List: 1. Weakness Pain Ratin Pain Location: n/a Pain Goal: Pain 4 or less Pain Plan: prn Tomorrow's Labs & Rationales: recheck cbc
--- NOTE | 2017-12-04 09:10 | Patient Discharge Instructions ---
Discharge Instructions General Discharge Information You were seen/treated for: Mechanical fall due to deconditioning Special Instructions: -Please follow-up with your primary care doctor after discharge -Maintain fall precautions, aspiration precautions. -Keep the head elevated during and for 1 hour after meals. -Patient has failed swallow evaluation, modified barium swallow which showed delayed swallow initiation resulting in consistent spillage, his daughter is POA and decided that he should be continued on the diet that he has at facility despite aspiration risk. -Inpatient psychiatric evaluation Diet Recommended Diet: Heart Healthy Activity Activity Self Limited: Yes Acute Coronary Syndrome Inclusion Criteria At DC or during hospital stay patient has or had the following: ACS DIAGNOSIS No Discharge Core Measures Meds if any: Prescribed or Continued at Discharge Meds if any: NOT Prescribed or Continued at Discharge Congestive Heart Failure Inclusion Criteria At DC or during hospital stay patient has or had the following: CHF DIAGNOSIS No Discharge Core Measures Meds if any: Prescribed or Continued at Discharge Meds if any: NOT Prescribed or Continued at Discharge Cerebrovascular accident Inclusion Criteria At DC or during hospital stay patient has or had the following: CVA/TIA Diagnosis No Discharge Core Measures Meds if any: Prescribed or Continued at Discharge Meds if any: NOT Prescribed or Continued at Discharge Venous thromboembolism Inclusion Criteria VTE Diagnosis No VTE Type NONE VTE Confirmed by (Test) NONE Discharge Core Measures - Per Current guidelines, there needs to be overlap - treatment for the first 5 days of Warfarin therapy. - If discharged on Warfarin prior to 5 days of - overlap therapy, the patient will need to be - assessed for post discharge needs including - *Post discharge parental anticoagulation - *Warfarin and/or parental anticoagulation education - *Follow up date to check INR post discharge At least 5 days overlap therapy as Inpatient No Meds if any: Prescribed or Continued at Discharge Note: Overlap Therapy is Warfarin and Anticoagulant Meds if any: NOT Prescribed or Continued at Discharge
--- NOTE | 2017-12-04 09:56 | Discharge Summary ---
Visit Information Visit Dates Admission Date: 12/01/17 Discharge Date: 12/04/2017 Hospital Course Course Attending Physician: Candelaria Henderson MD Primary Care Physician: Anita Headley MD Hospital Course: This is a 82-year-old pleasent gentleman with a past medical history of dementia and lipidemia who was brought in by ambulance from assisted alf after experiencing a fall on 11/30/2017. It was reported that the patient was attempting to use the restroom and while using his walker, he tripped and fell. His roomated activated EMS. No report of seizure like activity, syncope, or focal neurological deficits. He was reported to have hit his head during the fall. Physical Exam General Appearance Alert, Oriented to place, not to time or person, Laceration on forehead. No Erythema. No Bleed. Sterri Strips. HEENT PERRLA, EOMI, Mucous Membr. moist/pink Neck Supple Cardiovascular Normal S1, Normal S2 Lungs Normal Air Movement, Inspiratory Wheezing Abdomen Normal Bowel Sounds, Soft, No Tenderness Neurological Normal Speech, Strength at 5/5 X4 Ext, Cranial Nerves 3-12 NL, Gait testing deferred, PT Eval to be finalized Extremities No Clubbing, No Cyanosis, No Edema Vascular Normal Pulses Last 24 Hrs of Labs/Harley: Laboratory Tests 11/30/17 2300: CBC w Diff NO MAN DIFF REQ, RBC 4.22 L, MCV 93.0, MCH 30.8, MCHC 33.1, RDW 13.6 , MPV 7.4, Gran % 87.9 H, Lymphocytes % 8.1 L, Monocytes % 3.5, Eosinophils % 0.4, Basophils % 0.1, Absolute Granulocytes 9.1 H, Absolute Lymphocytes 0.8 L, Absolute Monocytes 0.4, Absolute Eosinophils 0, Absolute Basophils 0 11/30/17 2135: Anion Gap 13, Estimated GFR > 60, BUN/Creatinine Ratio 34.3 H, Glucose 92, Calcium 9.3, Total Bilirubin 1.1, AST 29, ALT 32, Alkaline Phosphatase 81, Troponin I < 0.01, Total Protein 7.2, Albumin 4.2, Globulin 3.0, Albumin/ Globulin Ratio 1.4 CT imaging was unremarkable for any acute intracranial bleed. Cervical spine CT and Hip Xray was unremarkable for any fractures or any other acute pathology. Pt was admitted to general medicine and the following issues: #Fall likely mechanical potentially due to generalized deconditioning. #History of aspiration risk. #Acute worsening of depression and anxiety. #Borderline low blood pressure. During hospital stay, patient Escitalopram was increased to 2.5mg to 5mg. His blood pressure improved subsequently after adequate incresed oral fluid intake. Physical therapy was consulted and after their evaluation, it was recommended that the patient will need Short term rehab. Allergies: Coded Allergies: acetaminophen (Mild, RASH 11/30/17) Disposition Summary Disposition Principal Diagnosis: Mechanical fall Additional Diagnosis: Acute worsening of depression Discharge Disposition: SNF Discharge Instructions General Discharge Information Code Status: Do Not Resucitate/Intubat Patient's Diet: Puree with nectar thick liquid. Patient's Activity: As Tolerated Follow-Up Instructions/Appts: Pt is to f/u with his PCP within 2-3 weeks after discharge Medications at Discharge Discharge Medications: Stop taking the following medications: Amoxicillin/Potassium Clav (Augmentin 875-125 Tablet) 875 MG-125 MG TABLET ORAL TWICE DAILY Qty = 4 Continue taking these medications: Simvastatin (Simvastatin*) 40 MG TABLET 1 Tablet ORAL Every Morning Comments: Last Taken: 12/03/17 Time: 5:15 PM LIPITOR GIVEN* Aspirin (Aspirin*) 81 MG TAB.CHEW 1 Tablet ORAL DAILY Comments: Last Taken: 12/04/17 Time: 0900 AM Cyanocobalamin (Vitamin B-12) 1,000 MCG TABLET 1 Tablet ORAL DAILY Comments: NOT GIVEN IN HOSPITAL Gabapentin (Gabapentin) 100 MG CAPSULE 1 Capsule ORAL EVERY 8 HOURS Qty = 30 Comments: Last Taken: 12/04/17 Time: 0545 AM Start taking the following new medications: Guaifenesin (Mucinex) 600 MG TAB.ER.12H 1 Tablet ORAL TWICE DAILY Qty = 14 No Refills Comments: NOT TAKEN IN HOSPITAL The following medications have been changed: Old: Escitalopram Oxalate (Lexapro) 5 MG TABLET 0.5 Tablet ORAL DAILY Qty = 30 New: Escitalopram Oxalate (Lexapro) 5 MG TABLET 1 Tablet ORAL DAILY Qty = 30 Comments: Last Taken: 12/04/17 Time: 0910 AM Copies To: Kayode BUSH,Anita Gan MD Review Statement Documenting Attending: Robert Disla MD Other Findings: The patient was seen by me the last 2 days and agree with the plan of care as outlined. OK to discharge to [facility] today. Will increased Citalopram to 5 mg daily. Consider other behavioral meds (Seroquel/Remeron) - to be evaluated by psych at [facility] [email or web address]].
[2017-12-04] MEDS ORDERED: LEXAPRO5 M1 PO (10:12)
[2017-12-04] MEDS ORDERED: MUCINEX600 M1 PO (12:36)
[2017-12-04 13:38] VITALS: BP 118/60
== END 2017-12-04 14:07 | DRG 316 ==
LOC: ERH 20:22 → ERHI 12-01 10:57 → 2NA 12-01 10:57 → ERHI 12-01 13:29 → ENRESERV 12-01 14:45 → CANRESERV 12-01 14:45 → ENTRNSPT 12-01 15:57 → ENRESERV 12-01 16:00 → CMPTRNSPT 12-01 16:48 → 2NA 12-01 16:53 → ENPENDDIS 12-04 11:37 → 2NA 12-04 14:07
PROVIDERS: Pediatrics
PROC: 0HQ1XZZ Repair Face Skin, External Approach (ICD-10-PCS; principal; 2017-11-30)
DX: I95.9 Hypotension, unspecified (principal); F03.90 Unspecified dementia, unspecified severity, without behavioral disturbance, psychotic disturbance, mood disturbance, and anxiety; R13.10 Dysphagia, unspecified; E78.5 Hyperlipidemia, unspecified; F32.9 Major depressive disorder, single episode, unspecified; F41.9 Anxiety disorder, unspecified; Z66 Do not resuscitate; S01.81XA Laceration without foreign body of other part of head, initial encounter; W01.0XXA Fall on same level from slipping, tripping and stumbling without subsequent striking against object, initial encounter; Y92.092 Bedroom in other non-institutional residence as the place of occurrence of the external cause; R26.81 Unsteadiness on feet; R47.02 Dysphasia; M19.90 Unspecified osteoarthritis, unspecified site; Z88.6 Allergy status to analgesic agent
CPT/HCPCS: 2NASP; 36592; 71045; 72170; 82436; 90471; 90714; 93005; 93010; 97116-GO; 97116-GP; 97161-GP; 97530-GO; J1650; J3490; J7040; J7042

== ENCOUNTER 2018-01-14 22:09 | Inpatient (IN) | payer OTHER, MEDICARE ==
[~2018-01-14] VITALS: Ht 177.8 cm; Wt 71.5 kg
[~2018-01-14 22:09] MED LIST changes: +MUCINEX600 M1 PO
--- NOTE | 2018-01-14 22:36 | ED GENERAL ADULT ---
See Addendum History of Present Illness General Chief Complaint: General Adult Stated Complaint: "COUGH AND VOMITING" Source: patient, family, old records, EMS Exam Limitations: dementia Vital Signs & Intake/Output Vital Signs & Intake/Output Vital Signs Date Time Temp Pulse Resp B/P B/P Pulse O2 O2 Flow FiO2 Mean Ox Delivery Rate 01/15 0059 102.4 01/14 2350 102.6 109 20 105/58 95 Room Air 01/14 2259 94 01/14 2230 95 Room Air 01/14 2210 99.2 110 20 119/57 95 Room Air ED Intake and Output 01/15 0000 01/14 1200 Intake Total 0 Output Total Balance 0 Intake, Oral 0 Patient 155 lb Weight Weight Reported by Patient Measurement Method Allergies Coded Allergies: acetaminophen (Mild, RASH 11/30/17) Reconcile Medications Aspirin (Aspirin*) 81 MG TAB.CHEW 1 TAB PO DAILY HEART HEALTH (Reported) Cyanocobalamin (Vitamin B-12) 1,000 MCG TABLET 1 TAB PO DAILY SUPPLEMENT ( Reported) Escitalopram Oxalate (Lexapro) 5 MG TABLET 1 TAB PO DAILY DEPRESSION Gabapentin 100 MG CAPSULE 1 CAP PO Q8 Anxiety off label use Guaifenesin (Mucinex) 600 MG TAB.ER.12H 1 TAB PO BID MUCOUS Simvastatin (Simvastatin*) 40 MG TABLET 1 TAB PO QAM CHOLESTEROL (Reported) Triage Note: PT BIBA FROM [facility] FOR COUGH AND VOMITTING. PMH OF ASPIRATION PNA AND DYSPHAGIA. TEMP 100.8 AT ECF. WAS GIVEN IBUPROFIN AT ECF, BUT VOMITTED IT UP AFTER COUGHING. ON EMS ARRIVAL, O2 SAT 89% ON RA. PT ARRIVES ON 3L NC, O2 SAT 95%. PT NOTED TO HAVE PRODUVCTIVE COUGH, O2 SAT 93-96% ON RA. TEMP 99.2 ON ARRIVAL. PT ALERT AND CONVERSIVE. PER FAMILY, GAIT HAS BECOME MORE UNSTEADY. PT SHAKING. FAMILY AT BEDSIDE Triage Nurses Notes Reviewed? yes Onset: Abrupt Duration: day(s): (1), constant, continues in ED, getting worse Timing: recent history Injury Environment: home Severity: moderate, severe Severity Numbers: 7 No Modifying Factors: none HPI: 82-year-old male past medical history of dementia, dysphagia, aspiration pneumonia presents for evaluation of fever, cough and vomiting. According to EMS/W 10 patient had a temp of 100.8 at the [facility] and had multiple episodes of coughing and vomiting. Patient denies any history of CHF or COPD. He has no history of smoking. Family states he is more lethargic than usual. His cough has been productive of discolored mucus. Been giving Mucinex without improvement. This is an acute change he was at his baseline yesterday. Patient usually is able to walk with assistance but was found to have fallen at the [facility] after trying to clean up his vomit. The fall was unwitnessed. It is unclear if he hit his head. He is not on blood thinners. He denies any abdominal pain shortness of breath chest pain diarrhea. (Yousif Falk) Past History Travel History Traveled to [place] past 21 day No Medical History Any Pertinent Medical History? see below for history Neurological: dementia EENT: NONE Cardiovascular: hyperlipidemia Respiratory: bronchitis, ASPIRATION PNEUMONIA Gastrointestinal: DYSPHAGIA Hepatic: NONE Renal: nephrolithiasis Musculoskeletal: osteoarthritis, arthritis of neck Psychiatric: NONE Endocrine: NONE Blood Disorders: NONE Cancer(s): NONE ACCOUNT CONTACT ASSOCIATE/Reproductive: NONE History of MRSA: No History of VRE: No History of CDIFF: No Tetanus Vaccine: 12/01/17 Surgical History Surgical History: Right inguinal area surgery Psychosocial History Who do you live with Family Services at Home None What is your primary language Rw[place]an Tobacco Use: Never used Family History Family History, If Any: SISTER Relation not specified for: FH: HTN (hypertension) Hx Contributory? No (Yousif Falk) Review of Systems Review of Systems Constitutional: Reports: fever, malaise, weakness. EENTM: Reports: no symptoms. Respiratory: Reports: see HPI, cough, sputum production. Cardiovascular: Reports: no symptoms. GI: Reports: nausea, vomiting. Genitourinary: Reports: no symptoms. Musculoskeletal: Reports: no symptoms. Skin: Reports: no symptoms. Neurological/Psychological: Reports: no symptoms. Hematologic/Endocrine: Reports: no symptoms. Immunologic/Allergic: Reports: no symptoms. All Other Systems: Reviewed and Negative (Yousif Falk) Physical Exam Physical Exam General Appearance: well developed/nourished, no apparent distress, alert, awake Head: atraumatic, normal appearance Eyes: Bilateral: normal appearance, PERRL, EOMI. Ears, Nose, Throat: normal pharynx, hearing grossly normal, nasal congestion Neck: normal inspection, supple, full range of motion Respiratory: chest non-tender, no respiratory distress, rhonchi, wheezing Cardiovascular: regular rate/rhythm, normal peripheral pulses Peripheral Pulses: 2+ radial (R), 2+ radial (L) Gastrointestinal: normal bowel sounds, soft, non-tender, no organomegaly Back: normal inspection, normal range of motion, no vertebral tenderness Extremities: normal inspection, normal range of motion, no edema Neurologic/Psych: no motor/sensory deficits, awake, alert, patient is oriented to person only. He repeatedly ask where he is Skin: intact, normal color, hot dry Lymphatic: no anterior cervical polo Comments: No signs of trauma to the head neck chest abdomen pelvis. Patient is with enlarged remedies no joint swelling or pain no bruising swelling and abrasions Core Measures ACS in differential dx? No CVA/TIA Diagnosis: No Sepsis Present: Yes Sepsis Focused Exam Completed? Yes (J Carlos ANGEL,Yousif) Progress Differential Diagnoses I considered the following diagnoses in my evaluation of the patient: [ Aspiration pneumonia, acute required pneumonia, sepsis, UTI, cellulitis, diverticulitis, gastroenteritis, acute abdomen, ] Plan of Care: Orders Procedure Date/time Status Nothing by Mouth 01/15 B Active Patient Data 01/16 136 Active ED Holding Orders 01/15 129 Active Admit to inpatient 01/15 012 Active Vital Signs 01/15 129 Active Code Status 01/15 129 Active Add-on Test (ER Only) 01/15 011 Active CREATINE PHOSPHOKINASE 01/14 2359 Complete BLOOD CULTURE 01/15 2232 Active TROPONIN LEVEL 01/15 2232 Complete LACTIC ACID 01/15 2232 Complete COMPREHENSIVE METABOLIC PANEL 01/15 2232 Complete CBC WITHOUT DIFFERENTIAL 01/15 2232 Complete B-TYPE NATRIURETIC PEP (BNP) 01/15 2232 Complete EKG 01/15 2232 Active Current Medications Sig/Mckenzie Start time Last Medication Dose Stop Time Status Admin Ketorolac 15 MG ONCE ONE 01/15 115 UNVr 01/15 Tromethamine 01/16 116 0139 (Toradol) Sodium Chloride 1,000 ML BOLUS ONE 01/15 115 UNVr 01/15 (Normal Saline 0.9%) 01/15 0214 0139 Laboratory Tests 01/15/18 013: Lactic Acid Cancelled 01/14/18 235: Anion Gap 11, Estimated GFR > 60, BUN/Creatinine Ratio 22.2, Glucose 98, Lactic Acid 1.2, Calcium 8.9, Total Bilirubin 1.0, AST 18, ALT 26, Alkaline Phosphatase 75, Creatine Kinase 256 H, Troponin I < 0.01, Gqh-K-Mvialrgguds Pept 146 H, Total Protein 6.5, Albumin 3.5, Globulin 3.0, Albumin/Globulin Ratio 1.2 01/14/182304: CBC w Diff NO MAN DIFF REQ, RBC 4.74, MCV 93.0, MCH 30.8, MCHC 33.1, RDW 14.1, MPV 8.3, Gran % 85.7 H, Lymphocytes % 9.3 L, Monocytes % 4.4, Eosinophils % 0.5, Basophils % 0.1, Absolute Granulocytes 3.6, Absolute Lymphocytes 0.4 L, Absolute Monocytes 0.2, Absolute Eosinophils 0, Absolute Basophils 0 Microbiology 01/14 2315 BLOOD: Blood Culture - RECD 01/14 2300 BLOOD: Blood Culture - RECD Patient seen and evaluated. He is here with fever cough congestion and weakness. He also had a questionable fall that was unwitnessed. He is not on blood thinners. He has dementia at baseline he has no complaints. On initial evaluation is a low-grade temp. He was apparently found to be 89% on room air and EMS arrived at [facility] however is satting around 93-94 on room air here. He does have wheezing and rhonchi bilaterally. DuoNeb was ordered. IV fluids IV Toradol ordered. Patient has a Tylenol allergy. Patient had a lópez scan to the fact he had an unwitnessed fall and also vomiting aspiration pneumonia history. No history of DVT or PE no recent surgery. He should still has a high temp of 102 now despite 15 of Toradol. Additional fluids and another 15 of Toradol ordered. Blood work does not show any acute findings. He's got a normal BNP and chest x-ray does not show definitive pneumonia. Waiting on CT scans. CT scan of the head and neck chest pelvis does not show any trauma. CT scan of the chest shows evidence of opacities that could represent edema versus aspiration versus atypical pneumonia. Based on the fever productive cough history of aspiration and vomiting today suspect this is aspiration pneumonia. Unasyn ordered. stil has a Temp of Of 102 additional fluids ordered. Patient will require admission to the hospital for further evaluation and treatment. Patient does meet SIRS criteria of tachycardia, temp 102, respiratory rate of 20. He has a documented source of infection. He will require IV fluids, IV antibiotics, serial labs, serial chest x-rays, monitoring of vital signs, antipyretics. Case discussed with Dr. Michael rizzo. Diagnostic Imaging: Viewed by Me: CT Scan. Discussed w/RAD: CT Scan. Radiology Impression: PATIENT: MEGAN COTTON PRESENT AGE: 82 PATIENT ACCOUNT NO: [id number] : 34 LOCATION: [facility] ORDERING PHYSICIAN: Yousif ANGEL SERVICE DATE: 01/14/18 EXAM TYPE: RAD - XRY-PORTABLE CHEST XRAY EXAMINATION: XR PORTABLE CHEST CLINICAL INFORMATION: Cough fever COMPARISON: 11/30/2017 TECHNIQUE: Portable frontal view of the chest was obtained. FINDINGS: There is mild RIGHT parahilar and infrahilar infiltrates. There is no pleural effusion. No pneumothorax. Heart is normal in size. IMPRESSION: Mild perihilar infiltrates. Follow-up chest PA and lateral recommended when patient's condition permits. DICTATED BY: Giovany Aragon MD DATE/TIME DICTATED:01/14/182247 MEDICAL DOSIMETRIST:GALINA DATE/TIME TRANSCRIBED:01/14/182247 CONFIDENTIAL, DO NOT COPY WITHOUT APPROPRIATE AUTHORIZATION., PATIENT: MEGAN COTTON PRESENT AGE: 82 PATIENT ACCOUNT NO: [id number] : 34 LOCATION: [facility] ORDERING PHYSICIAN: Yousif ANGEL SERVICE DATE: 01/14/18 EXAM TYPE: CAT - CT CERV SPINE WO IV CONTRAST; CT HEAD WO IV CONTRAST EXAMINATION: NONCONTRAST HEAD CT NONCONTRAST CERVICAL SPINE CT INDICATION INFORMATION: Unwitnessed fall. Dementia. COMPARISON : 11/30/2017 TECHNIQUE: Separate noncontrast CT examinations of the head and cervical spine were performed. Coronal and sagittal images were created for each examination at the technologist workstation. DLP: 2039 mGy-cm FINDINGS: Head: Motion limited examination. There is no evidence of acute intracranial hemorrhage or territorial infarction. No abnormal mass effect or midline shift is seen. Ambrose to white matter differentiation is well preserved. No extra-axial fluid collections are identified. No hydrocephalus. Proportional prominence of the ventricles and sulcal spaces is consistent with mild volume loss. Patchy periventricular and deep white matter hypoattenuation is consistent with mild small vessel ischemic changes. The osseous structures and soft tissues are normal. Small mucus retention cysts in both maxillary sinuses. The mastoid air cells and visualized portions of the paranasal sinuses are otherwise well aerated. Cervical spine: There is anatomic alignment of the vertebral bodies and posterior elements. The atlantoaxial and atlantooccipital articulations are intact. Vertebral body heights are maintained. There is multilevel intervertebral disc space narrowing with endplate osteophyte formation and facet arthropathy. Multilevel vacuum disc phenomenon. No evidence of acute fracture. No prevertebral soft tissue swelling. Linear scarring seen at both lung apices. The thyroid gland is unremarkable. IMPRESSION: 1. No acute intracranial findings. Mild volume loss with small vessel ischemic change. 2. No acute fracture or malalignment of the cervical spine. Moderate multilevel degenerative changes throughout. DICTATED BY: Walter Whitfield MD DATE/TIME DICTATED:7 MEDICAL DOSIMETRIST:GALINA DATE/TIME TRANSCRIBED:01/15/187 CONFIDENTIAL, DO NOT COPY WITHOUT APPROPRIATE AUTHORIZATION. <Electronically signed in Other Vendor System> , PATIENT: MEGAN COTTON PRESENT AGE: 82 PATIENT ACCOUNT NO: [id number] : LOCATION: [facility] ORDERING PHYSICIAN: Yousif ANGEL SERVICE DATE: EXAM TYPE: CAT - CT ABD & PELVIS W/O IV CONTRAS; CT CHEST WO IV CONTRAST EXAMINATION: CT CHEST WITHOUT CONTRAST CT ABDOMEN AND PELVIS WITHOUT CONTRAST CLINICAL INFORMATION: Cough. Vomiting. Trauma. Fall. Hip pain. COMPARISON: CT from 09/21/2017 TECHNIQUE: Multidetector volumetric imaging was performed through the chest, abdomen and pelvis without contrast. Sagittal and coronal reformatted images were obtained on the technologist's workstation. Axial MIP volume rendering provided. DLP: 553 mGy-cm. FINDINGS: CHEST: Lungs: The central airways are patent. There are groundglass opacity seen in both lungs greatest at the mid to lower lungs. Biapical scarring noted, unchanged. No dense consolidation. No pneumothorax or pleural effusion. Unchanged 0.4 cm left lower lobe subpleural pulmonary nodule, series 4 image 287. Unchanged 0.5 cm left upper lobe pulmonary nodule, series 4 image 150. Mediastinum: Central vascular structures are unremarkable. No hilar or mediastinal lymphadenopathy. The heart is of normal size. Coronary artery calcifications present. There is no pericardial effusion. Chest Wall/Axilla: No lymphadenopathy. No chest wall mass. ABDOMEN/PELVIS: Liver , Gallbladder, Biliary Tree: The liver is normal in size, shape, and attenuation. No biliary ductal dilatation. Unchanged appearance of a hypoattenuating hepatic lesions, likely representing cysts.. The gallbladder is unremarkable with no evidence of radiopaque gallstones, gallbladder wall thickening, or pericholecystic inflammatory changes. Pancreas: Unremarkable. Spleen: Unremarkable. Adrenal Glands: Unremarkable. Kidneys and Ureters: The kidneys are normal in size, shape, and attenuation. No hydronephrosis or hydroureter. Unchanged left upper pole 0.9 cm calculus, 8.5 cm from the posterior axillary line. This measures 500 Hounsfield units. Bladder: Unremarkable. Gastrointestinal Tract: Stomach appears unremarkable. The small bowel is normal in caliber. There is no obstruction. Mild colonic diverticulosis without diverticulitis. No free air or free fluid. Abdominal Wall: Fat- containing bilateral inguinal hernias, right greater than left. These are unchanged. Lymphovascular Structures: Lymph nodes: Normal. Vascular: Normal caliber aorta with mild atherosclerotic calcifications. Pelvic Viscera: The prostate and seminal vesicles are unremarkable. OSSEOUS STRUCTURES: No suspicious sclerotic or lytic bone lesions are identified. There is no acute fracture or malalignment. Vertebral body height and alignment is maintained. DISH. Multilevel degenerative changes throughout the spine. There are moderate to severe degenerative changes of both hips with joint space narrowing, sclerosis, and osteophyte formation. There is no pelvic fracture or hip fracture visualized. Partial fusion of the sacroiliac joints. The ribs are intact. IMPRESSION: 1. Groundglass opacities seen in both lungs are nonspecific. Considerations include edema, aspiration, or atypical infectious process. 2. No acute findings in the abdomen or pelvis. No acute traumatic findings. 3. Nonobstructing left upper pole renal calculus. 4. Degenerative changes throughout the spine with moderate degenerative changes of both hips. DICTATED BY: Nahid BUSH,Walter DATE/TIME DICTATED:01/15/1812 MEDICAL DOSIMETRIST: GALINA DATE/TIME TRANSCRIBED:01/15/1812 CONFIDENTIAL, DO NOT COPY WITHOUT APPROPRIATE AUTHORIZATION. Initial ED EKG: SINUS TACH RATE 117, RIGHT BUNDLE BRANCH BLOCK (Yousif Falk) Departure Departure Disposition: STILL A PATIENT Condition: Stable Clinical Impression Primary Impression: Aspiration pneumonia Qualifiers: Aspiration pneumonia type: unspecified Laterality: bilateral Lung location: unspecified part of lung Qualified Code: J69.0 - Pneumonitis due to inhalation of food and vomit Referrals: Kayode BUSH,Anita Marquez (PCP/Family) Departure Forms: Customer Survey General Discharge Information (Yousif Falk) PA/LIVESTOCK HAULIER Co-Sign Statement Statement: ED Attending supervision documentation- [X] I saw and evaluated the patient. I have also reviewed all the pertinent lab results and diagnostic results. I agree with the findings and the plan of care as documented in the PA's/LIVESTOCK HAULIER's documentation. [X] I have reviewed the ED Record and agree with the PA's/LIVESTOCK HAULIER's documentation. [] Additions or exceptions (if any) to the PAs/LIVESTOCK HAULIER's note and plan are summarized below: [Patient will need IV antibiotics for aspiration pneumonia. Patient has dementia and is on pured foods.] (Michael BUSH,James Pillai) ED Sepsis Exam Date of Focused Sepsis Exam: 01/15/18 Time of Focused Sepsis Exam: 0122 Sepsis Cardiac Exam: Tachycardia Sepsis Resp Exam: Ronchi Sepsis Cap Refill Exam: <2 Sec Sepsis Peripheral Pulse Exam: Normal Sepsis Peripheral Pulse Location: Radial Sepsis Skin Color Exam: Flushed Skin Temp/Moisture Exam: Hot/Dry (Yousif Falk) Critical Care Note Critical Care Note Critical Care Time: 30-74 min (Yousif Falk)
--- NOTE | 2018-01-14 22:54 | RADIOLOGY REPORT ---
EXAMINATION: XR PORTABLE CHEST CLINICAL INFORMATION: Cough fever COMPARISON: 11/30/2017 TECHNIQUE: Portable frontal view of the chest was obtained. FINDINGS: There is mild RIGHT parahilar and infrahilar infiltrates. There is no pleural effusion. No pneumothorax. Heart is normal in size. IMPRESSION: Mild perihilar infiltrates. Follow-up chest PA and lateral recommended when patient's condition permits.
[2018-01-14 23:23] LABS: ABSOLUTE BASOPHIL COUNT 0 /CUMM (0.0-0.2); ABSOLUTE EOSINOPHIL COUNT 0 /CUMM (0.0-0.7); ABSOLUTE GRANULOCYTE CT 3.6 /CUMM (1.4-6.5); ABSOLUTE LYMPH COUNT 0.4 /CUMM (1.2-3.4); ABSOLUTE MONOCYTE COUNT 0.2 /CUMM (0.10-0.60); BASOPHIL % 0.1 % (0.0-2.0); EOSINOPHIL % 0.5 % (0-5); HEMATOCRIT 44.1 % (42-52); MEAN CORPUSCULAR HGB 30.8 PG (27.0-31.0); MEAN CORPUSCULAR HGB CONC 33.1 G/DL (33.0-37.0); MEAN PLATELET VOLUME 8.3 FL (7.4-10.4); PLATELET COUNT 192 /CUMM (130-400); RBC DISTRIBUTION WIDTH 14.1 % (11.5-14.5); RED BLOOD CELL CT 4.74 /CUMM (4.70-6.10); WHITE BLOOD CELL COUNT 4.2 /CUMM (4.8-10.8)
[2018-01-14 23:24] LABS: GRANULOCYTE % 85.7 % (42.2-75.2)
--- NOTE | 2018-01-15 00:17 | CT SCAN REPORT ---
EXAMINATION: NONCONTRAST HEAD CT NONCONTRAST CERVICAL SPINE CT INDICATION INFORMATION: Unwitnessed fall. Dementia. COMPARISON: 11/30/2017 TECHNIQUE: Separate noncontrast CT examinations of the head and cervical spine were performed. Coronal and sagittal images were created for each examination at the technologist workstation. DLP: 2039 mGy-cm FINDINGS: Head: Motion limited examination. There is no evidence of acute intracranial hemorrhage or territorial infarction. No abnormal mass effect or midline shift is seen. Ambrose to white matter differentiation is well preserved. No extra-axial fluid collections are identified. No hydrocephalus. Proportional prominence of the ventricles and sulcal spaces is consistent with mild volume loss. Patchy periventricular and deep white matter hypoattenuation is consistent with mild small vessel ischemic changes. The osseous structures and soft tissues are normal. Small mucus retention cysts in both maxillary sinuses. The mastoid air cells and visualized portions of the paranasal sinuses are otherwise well aerated. Cervical spine: There is anatomic alignment of the vertebral bodies and posterior elements. The atlantoaxial and atlantooccipital articulations are intact. Vertebral body heights are maintained. There is multilevel intervertebral disc space narrowing with endplate osteophyte formation and facet arthropathy. Multilevel vacuum disc phenomenon. No evidence of acute fracture. No prevertebral soft tissue swelling. Linear scarring seen at both lung apices. The thyroid gland is unremarkable. IMPRESSION: 1. No acute intracranial findings. Mild volume loss with small vessel ischemic change. 2. No acute fracture or malalignment of the cervical spine. Moderate multilevel degenerative changes throughout.
--- NOTE | 2018-01-15 00:24 | CT SCAN REPORT ---
EXAMINATION: CT CHEST WITHOUT CONTRAST CT ABDOMEN AND PELVIS WITHOUT CONTRAST CLINICAL INFORMATION: Cough. Vomiting. Trauma. Fall. Hip pain. COMPARISON: CT from 09/21/2017 TECHNIQUE: Multidetector volumetric imaging was performed through the chest, abdomen and pelvis without contrast. Sagittal and coronal reformatted images were obtained on the technologist's workstation. Axial MIP volume rendering provided. DLP: 553 mGy-cm. FINDINGS: CHEST: Lungs: The central airways are patent. There are groundglass opacity seen in both lungs greatest at the mid to lower lungs. Biapical scarring noted, unchanged. No dense consolidation. No pneumothorax or pleural effusion. Unchanged 0.4 cm left lower lobe subpleural pulmonary nodule, series 4 image 287. Unchanged 0.5 cm left upper lobe pulmonary nodule, series 4 image 150. Mediastinum: Central vascular structures are unremarkable. No hilar or mediastinal lymphadenopathy. The heart is of normal size. Coronary artery calcifications present. There is no pericardial effusion. Chest Wall/Axilla: No lymphadenopathy. No chest wall mass. ABDOMEN/PELVIS: Liver, Gallbladder, Biliary Tree: The liver is normal in size, shape, and attenuation. No biliary ductal dilatation. Unchanged appearance of a hypoattenuating hepatic lesions, likely representing cysts.. The gallbladder is unremarkable with no evidence of radiopaque gallstones, gallbladder wall thickening, or pericholecystic inflammatory changes. Pancreas: Unremarkable. Spleen: Unremarkable. Adrenal Glands: Unremarkable. Kidneys and Ureters: The kidneys are normal in size, shape, and attenuation. No hydronephrosis or hydroureter. Unchanged left upper pole 0.9 cm calculus, 8.5 cm from the posterior axillary line. This measures 500 Hounsfield units. Bladder: Unremarkable. Gastrointestinal Tract: Stomach appears unremarkable. The small bowel is normal in caliber. There is no obstruction. Mild colonic diverticulosis without diverticulitis. No free air or free fluid. Abdominal Wall: Fat-containing bilateral inguinal hernias, right greater than left. These are unchanged. Lymphovascular Structures: Lymph nodes: Normal. Vascular: Normal caliber aorta with mild atherosclerotic calcifications. Pelvic Viscera: The prostate and seminal vesicles are unremarkable. OSSEOUS STRUCTURES: No suspicious sclerotic or lytic bone lesions are identified. There is no acute fracture or malalignment. Vertebral body height and alignment is maintained. DISH. Multilevel degenerative changes throughout the spine. There are moderate to severe degenerative changes of both hips with joint space narrowing, sclerosis, and osteophyte formation. There is no pelvic fracture or hip fracture visualized. Partial fusion of the sacroiliac joints. The ribs are intact. IMPRESSION: 1. Groundglass opacities seen in both lungs are nonspecific. Considerations include edema, aspiration, or atypical infectious process. 2. No acute findings in the abdomen or pelvis. No acute traumatic findings. 3. Nonobstructing left upper pole renal calculus. 4. Degenerative changes throughout the spine with moderate degenerative changes of both hips.
--- NOTE | 2018-01-15 01:46 | History & Physical ---
Deandra Hurtado 01/15/18 0137: General Information and HPI MD Statement: I have seen and personally examined MEGAN GERARDO and documented this H&P. The patient is a 82 year old M who presented with a patient stated chief complaint of [Fever]. Source of Information: patient, family, old records Exam Limitations: no limitations History of Present Illness: Mr. Gerardo is a 82yo M w/ PMH of Aspiration PNA, Dysphagia, HLD, Depression, OA , presented to ER w/ CC of Tmax 100.8 at [facility], vomiting after coughing out ibuprofen given for fever, was brought into ER for [facility] which was found to be febrile, was unwitnessed mechanical fall, however denied any loss of consciousness, but endorsed episodes of vomiting at the time. During our clinical interaction, patient was alert and oriented to himself, the daughter, setting, however denied remembering of any of the event happening at [facility]. Patient was brought in with O2 sat 89% on room air by EMS. Per daughter , patient had history of dysphagia was failed swallow During our clinical interaction, patient endorsed some feeling of coldness, however denied recent travel/sick contacts, fever/lightheadedness/diaphoresis/ night sweat/weight change/cough/SOB/Chest Pain/Palpitation/Abdominal pain/bowel movement or urinary abnormality, or other skin/musculoskeletal/neurological/mood disorders, or dietary/appetite change. -Smoking: Never -Alcohol: social -Rec Drugs: never Allergies/Medications Allergies: Coded Allergies: acetaminophen (Mild, RASH 11/30/17) Home Med list Aspirin (Aspirin*) 81 MG TAB.CHEW 1 TAB PO DAILY HEART HEALTH (Reported) Cyanocobalamin (Vitamin B-12) 1,000 MCG TABLET 1 TAB PO DAILY SUPPLEMENT ( Reported) Escitalopram Oxalate (Lexapro) 5 MG TABLET 1 TAB PO DAILY DEPRESSION Gabapentin 100 MG CAPSULE 1 CAP PO Q8 Anxiety off label use Guaifenesin (Mucinex) 600 MG TAB.ER.12H 1 TAB PO BID MUCOUS Simvastatin (Simvastatin*) 40 MG TABLET 1 TAB PO QAM CHOLESTEROL (Reported) Past History Travel History Traveled to [place] past 21 day No Medical History Neurological: dementia EENT: NONE Cardiovascular: hyperlipidemia Respiratory: bronchitis, ASPIRATION PNEUMONIA Gastrointestinal: DYSPHAGIA Hepatic: NONE Renal: nephrolithiasis Musculoskeletal: osteoarthritis, arthritis of neck Psychiatric: NONE Endocrine: NONE Blood Disorders: NONE Cancer(s): NONE CASH GRAIN GROWER/Reproductive: NONE History of MRSA: No History of VRE: No History of CDIFF: No Tetanus Vaccine: 12/01/17 Surgical History Surgical History: Right inguinal area surgery Past Family/Social History Family History Relations & Conditions if any SISTER Relation not specified for: FH: HTN (hypertension) Psychosocial History Services at Home: None Primary Language: German Functional Ability ADLs Needs Assist: dressing, eating, toileting, bathing. Ambulation: walker IADLs Needs Assist: shopping, housework, finances, food prep, telephone, transportation, medication admin. Review of Systems Review of Systems Constitutional: Reports: see HPI. Exam & Diagnostic Data Last 24 Hrs of Vital Signs/I&O Vital Signs Date Time Temp Pulse Resp B/P B/P Pulse O2 O2 Flow FiO2 Mean Ox Delivery Rate 01/15 0059 102.4 01/14 2350 102.6 109 20 105/58 95 Room Air 01/14 2259 94 01/14 2230 95 Room Air 01/14 2210 99.2 110 20 119/57 95 Room Air Intake & Output 01/15 0800 01/15 0000 01/14 1600 Intake Total 0 Output Total Balance 0 Intake, Oral 0 Patient 70.307 kg Weight Weight Reported by Patient Measurement Method Physical Exam General Appearance Alert, Cooperative, No Acute Distress, oriented to person/ time/place, however did not remember anything happened before he came to ER Skin No Significant Lesion Skin Temp/Moisture Exam: Warm/Dry Sepsis Skin Exam (color): Normal for Ethnicity HEENT Atraumatic, PERRLA, dropping right eyelid however vision intact Neck Supple, No JVD Cardiovascular Regular Rate Lungs Normal Air Movement, decreased air entry bl. Abdomen Normal Bowel Sounds, Soft, No Tenderness Neurological Strength at 5/5 X4 Ext, Sensation Intact, Cranial Nerves 3-12 NL, Reflexes 2+ Extremities No Edema, Normal Pulses Last 24 Hrs of Labs/Harley: Laboratory Tests 01/15/18 0132: Lactic Acid Cancelled 01/14/182358: Anion Gap 11, Estimated GFR > 60, BUN/Creatinine Ratio 22.2, Glucose 98, Lactic Acid 1.2, Calcium 8.9, Total Bilirubin 1.0, AST 18, ALT 26, Alkaline Phosphatase 75, Creatine Kinase 256 H, Troponin I < 0.01, Gev-C-Yztzyvaypbx Pept 146 H, Total Protein 6.5, Albumin 3.5, Globulin 3.0, Albumin/Globulin Ratio 1.2 01/14/185: CBC w Diff NO MAN DIFF REQ, RBC 4.74, MCV 93.0, MCH 30.8, MCHC 33.1, RDW 14.1, MPV 8.3, Gran % 85.7 H, Lymphocytes % 9.3 L, Monocytes % 4.4, Eosinophils % 0.5, Basophils % 0.1, Absolute Granulocytes 3.6, Absolute Lymphocytes 0.4 L, Absolute Monocytes 0.2, Absolute Eosinophils 0, Absolute Basophils 0 Microbiology 01/15 237 URINE ROUT: Legionella Antigen - ORD 01/15 237 URINE ROUT: Streptococcus pneumoniae Antigen (M - ORD 01/14 2315 BLOOD: Blood Culture - RECD 01/14 2300 BLOOD: Blood Culture - RECD Assessment/Plan Assessment: On admission, Vitals:Tmax 102.6, Tachycardia 109, Resp 22, BP 105/58, 95% RA -CBC: WBC 4.2, Gran 85.7%, otherwise unremarkable -BMP: PROBNP 146, otherwise unremarkable -Head/Neck CT: no acute -Ab CT: 1. Groundglass opacities seen in both lungs are nonspecific. Considerations include edema, aspiration, or atypical infectious process. 2. No acute findings in the abdomen or pelvis. No acute traumatic findings. 3. Nonobstructing left upper pole renal calculus. 4. Degenerative changes throughout the spine with moderate degenerative changes of both hips. -CXR: Mild perihilar infiltrates. -EKG: NSR w/o significant ST-T abnormalities. -Interventions in ER: Unasyn x 1, IVF, Albuterol/Atrovent, toradol Problem list/Assessment/Hospital Course: #Aspirational Pneumonia #metabolic Encephalopathy? #Hypotension #Sepsis (fever, infection, hypotension) - Admit to General medicine, vitals per protocol - Close monitoring with blood pressure, continue bolus, consider stress dose of hydrocortisone. Patient's family had not made decision for line insertion. Patient's stable currently without particular complaint. - O2 supplement if desatting, TRC/Nebulizer PRN - Start Unasyn 3g Q6 for aspirational pneumonia - Continue home meds - Pending blood cultures DVT prophylaxis Chem PPX + ALPS NPO DNR/DNI As Ranked By This Provider Problem List: 1. Aspiration pneumonia Qualifiers Aspiration pneumonia type: unspecified Laterality: bilateral Lung location: unspecified part of lung Qualified Code: J69.0 - Pneumonitis due to inhalation of food and vomit Core Measures/Misc (05/08) Acute Coronary Syndrome ACS Diagnosis: No Congestive Heart Failure Congestive Heart Failure Diagnosis No Cerebrovascular Accident CVA/TIA Diagnosis: No VTE (View Protocol) VTE Risk Factors Age>40 No Mechanical VTE Prophylaxis d/t N/A MechProphylax Ordered No VTE Pharm Prophylaxis d/t NA PharmProphylax ordered Sepsis (View protocol) Sepsis Present: No If YES complete Sepsis Event Note If YES complete Sepsis Event Note Caro Garciaada 01/15/18 0148: Core Measures/Misc (05/08) Sepsis (View protocol) If YES complete Sepsis Event Note If YES complete Sepsis Event Note Resident Review Statement Resident Statement: examined this patient, discussed with recruiting intern, agreed with recruiting intern Other Findings: Mr Tee is an 82 year old man w/ a PMHx of Alzheimers dementia, hyperlipidemia , h/o dysphagia with failed swallow eval in the past and currently on puree diet ( as per family's request ) who was brought in from [facility] ) when he was found to be febrile to 100.8. He also had an unwitnessed mechanical fall on the day of admissoin, with no loss of consciousness, but had episodes of vomiting at the time. When EMS arrived he was found to be hypoxemic oxygen at 89%. No chest pain, dyspnea, palpitaions. No seizures, loss of bladder bowel function. He has been on pured nectar and mechanical soft diet, as per the family's request. He has history of dysphagia, and MBS revealed abnormal swallow evaluation. The family understood the complications upon being fed, despite abnormal swallow evaluation. At the time of admission-temperature 102.6, pulse rate 109, respiration 20, blood pressure 105/58, 95% on room air. General Exam: AAOx1, No acute distress, Skin: No rashes, no breakdown;HEENT: PERRLA, EOMI, bilateral eyelid droop;Neck: Supple, No JVD; No cervical lymphadenopathy;CVS: Reg Rate, Normal S1,S2, No MGR;Resp:decreased air entry, no ronchi/rales;Abdomen: Soft, No tenderness, Normal Bowel Sounds;Neuro: Normal Speech, Strength 5/5 b/l x 4 extremities, Sensation intact, CN III-XII NL, Reflexes 2+;Extremities: No cyanosis, no pedal edema. Pertinent Findings WBC 4.2 (85.7 granulocytosis), hemoglobin 14.6, hematocrit 44.1, platelet count 192. Sodium 140, potassium 4.1, chloride 101, bicarbonate 28, anion gap 11. BUN 20, creatinine 0.9. Lactic acid 1.2. Liver chemistry is -AST and 18, ALT 26, alkaline phosphatase 75. CK 256. ProBNP 146. Head CT 01/15/2018 1. No acute intracranial findings. Mild volume loss with small vessel ischemic change. 2. No acute fracture or malalignment of the cervical spine. Moderate multilevel degenerative changes throughout. CT chest, abdomen and pelvis in 01/15/2018 1. Groundglass opacities seen in both lungs are nonspecific. Considerations include edema, aspiration, or atypical infectious process. 2. No acute findings in the abdomen or pelvis. No acute traumatic findings. 3. Nonobstructing left upper pole renal calculus. 4. Degenerative changes throughout the spine with moderate degenerative changes of both hips. Etiology in his case of fever, granulocytosis with normal white count, history of dysphagia and abnormal swallow evaluation, and CAT scan suggestive of groundglass opacities is likely aspiration pneumonia. He also is likely dehydrated given her elevated sodium, urinalysis revealing hyaline casts and ketone positive. He has been given fluid boluses of approximately 4-5 L, without any improvement in his blood pressure, and no improvement in urine output. She was also challenged with a stress dose of steroids, without any improvement in blood pressure readings, which could be continued at scheduled doses at this time. Check cortisol in the a.m., which would not be entirely reflective of the clinical state, since the patient received Solu-Cortef this a.m. Problem list: #1 aspiration pneumonitis/aspiration pneumonia, acute hypoxic respiratory failure #2 metabolic encephalopathy #3 hypotension #4 sepsis Plan: Admit the patient to general medicine service, and if vital signs do not improve would have to transfer the patient to intensive care unit for further management. #1 aspiration pneumonia-continue the patient on Unasyn 3 g every 8 hours, pending lower respiratory, blood cultures. Monitor vitals closely, and recheck C BC in the a.m. Aspiration precautions. Recheck lactate, for prognosis evaluation. Swallow evaluation in the a.m. Nothing by mouth for now. #2 sepsis-continued to have low blood pressure, despite adequate fluid resuscitation. Recheck lactate. Need for pressors, central line assessed. As per family's request, no pressors at this time. IV ketorolac as an antipyretic, as the patient has an allergy reaction to acetaminophen. #3 acute hypoxic respiratory failure-TRC nebs, continued oxygen supplementation as needed. No intubation. Although the patient does not have any cardiac history, would consider getting an echocardiogram at some time. Housekeeping checklist: #1 DVT prophylaxis-subcutaneous heparin. #2 GI prophylaxis-Protonix #3 diet-nothing by mouth #4 CODE STATUS-DNR/DNI #5 consults-critical care in the morning. Terrance BUSH, [facility] 01/15/18 0523: Core Measures/Misc (05/08) Sepsis (View protocol) If YES complete Sepsis Event Note If YES complete Sepsis Event Note Attending MD Review Statement Attending Statement Attending MD Statement: examined this patient, discuss w/resident/PA/MENTAL HEALTH NURSE, agreed w/resident/PA/MENTAL HEALTH NURSE, discussed with family, reviewed images, amended to note Attending Assessment/Plan: 82 yo M a resident of [facility], with h/o Alzheimer's dementia, HLD, dysphagia with aspiration pneumonia (Sep 2017) who has failed swallow evaluation and family opted to continue to feed him orally pureed nectar thick liquids, is brought in for evaluation of fever (100.8), vomiting x 2 and a wet cough. Patient also had an unwitnessed fall at the facility, with no LOC. Daughter at bedside provides history, as patient has no recollection of events due to his dementia. Patient was doing well until one day prior to admission. It has been 4 months since family opted to feed him pureed diet despite his dysphagia with no evidence of aspiration or pneumonia until today. Vitals: Tmax 102.6, HR 90-110's, BP 119/57 --> 105/58 --> 80/50, sats 89% RA at the ECF --> 93% on 2L. Exam: awake, alert but oriented to person, dry mucous membranes, Neck supple, Skin warm and dry, Chest reduced air entry at bases, no crackles or rhonchi, Heart S1S2 regular, Abd soft, NT. LE no edema. Labs: WBC 4.2, Na 140, CK 256, trop neg. UA trace protein, ketones+, no UTI. CXR: mild perihilar infiltrates. CT CAP: groundglass opacities in both lungs, no acute findings in abdomen. Nonobstructing left upper pole renal calculus. CT head/ cervical spine: no acute findings. EKG: sinus tachycardia, RBBB, Qtc 458. Assessment and plan: 1. Acute hypoxic respiratory failure 2. Severe sepsis, hypotension 3. Aspiration pneumonia/ pneumonitis 4. History of dysphagia 5. Alzheimer's dementia - Admit to General medicine - Fall, aspiration precautions - Panculture - IV Unasyn Q6 - IV fluids ~ 4-5 L bolus - Salazar placement, monitor urine output - Discussed with daughters and patient's at bedside, about need for central line and pressors if BP does not respond to IV fluids. They are still thinking about it and wish to see if BP improves with IV fluids. - Low threshold for ICU transfer - IV hydrocortisone 100 mg x1 - Check AM cortisol levels - Scheduled and PRN albuterol and ipratropium nebs - NPO for now - Swallow eval in AM - Patient's family wishes to opt to feed him despite the risk of aspiration, as he can get agitated if not fed. - Hold sedative meds - gabapentin - Toradol for fever and pain, family wishes to avoid tylenol due to allergic reaction rash - Resume lexapro, aspirin and statin when patient able to tolerate PO - DVT ppx Hep SC. DNR/I. Family decided against central line placement, will continue IV fluids and monitor.
--- NOTE | 2018-01-15 05:25 | Admission Certification ---
Admission Certification Certification Statement - As attending physician, I certify that at the time of - admission, based on clinical presentation, severity of - symptoms, need for further diagnostic testing and - therapeutic interventions, and risk of adverse outcomes - without in-hospital treatment, in my clinical assessment, - this patient requires an acute hospital stay for a minimum - of two nights or longer. I have also considered psychsocial - factors such as support system, advanced age, financial - issues, cognitive issues, and failed out-patient treatments, - past re-admission history, safety of patient, and lack of - compliance as applicable. Specific rationale supporting this admission is: Severe sepsis, hypotension, aspiration pneumonia.
--- NOTE | 2018-01-15 06:27 | Event Note ---
Event Note Event Note: The blood pressure remained low despite adequte fluid resuscitation, and we discussed w/ the family about possible pressors; need for central line was discussed. The family was of the opinion that they didnt want to pursue any aggressive measures, and "put him through this". Discussed w/ Dr. Carlos. During the night, he was given fluids especially Normal saline boluses to manage the hypotension. Although, he was hypotensive through out, he was not tachycardic or had any altered mentation. Clinically, he didnt seem to be in any distress. Lung examination revealed wheezes, but no rales. He was given beta- agonist for symtomatic relief. He continued to have decreased urine output, a total of approximately 300ml after being given 4L NS. Given his clinical condition, that was not responding to fluids, we thought that he might either be dehydrated w/ Na 140, and UA s/o hyaline casts w/ ketones or going into severe sepsis. Discussed the prognosis with the family, and transfered to the ICU for closer monitoring of his vitals. He could be transfered to the floors once he is more stable.
[2018-01-15 07:13] LABS: ABSOLUTE BASOPHIL COUNT 0 /CUMM (0.0-0.2); ABSOLUTE EOSINOPHIL COUNT 0 /CUMM (0.0-0.7); ABSOLUTE LYMPH COUNT 0.4 /CUMM (1.2-3.4); ABSOLUTE MONOCYTE COUNT 0.3 /CUMM (0.10-0.60); EOSINOPHIL % 0 % (0-5)
[2018-01-15 07:16] LABS: ABSOLUTE GRANULOCYTE CT 5.3 /CUMM (1.4-6.5); BASOPHIL % 0.1 % (0.0-2.0); GRANULOCYTE % 88.5 % (42.2-75.2); MEAN CORPUSCULAR HGB 31.5 PG (27.0-31.0); MEAN CORPUSCULAR HGB CONC 33.7 G/DL (33.0-37.0); MEAN CORPUSCULAR VOLUME 93.7 FL (80.0-94.0); MEAN PLATELET VOLUME 7.8 FL (7.4-10.4); PLATELET COUNT 122 /CUMM (130-400); RBC DISTRIBUTION WIDTH 14.1 % (11.5-14.5)
[2018-01-15 07:17] LABS: HEMATOCRIT 32.2 % (42-52); RED BLOOD CELL CT 3.44 /CUMM (4.70-6.10)
[2018-01-15 08:15] VITALS: BP 88/54
--- NOTE | 2018-01-15 09:19 | Cons- [facility] ---
General Information and HPI Allergies/Medications Allergies: Coded Allergies: acetaminophen (Mild, RASH 11/30/17) Home Med List: Aspirin (Aspirin*) 81 MG TAB.CHEW 1 TAB PO DAILY HEART HEALTH (Reported) Cyanocobalamin (Vitamin B-12) 1,000 MCG TABLET 1 TAB PO DAILY SUPPLEMENT ( Reported) Escitalopram Oxalate (Lexapro) 5 MG TABLET 1 TAB PO DAILY DEPRESSION Gabapentin 100 MG CAPSULE 1 CAP PO Q8 Anxiety off label use Guaifenesin (Mucinex) 600 MG TAB.ER.12H 1 TAB PO BID MUCOUS Simvastatin (Simvastatin*) 40 MG TABLET 1 TAB PO QAM CHOLESTEROL (Reported) Past History Travel History Traveled to [facility] past 21 day No Medical History Neurological: dementia EENT: NONE Cardiovascular: hyperlipidemia Respiratory: bronchitis, ASPIRATION PNEUMONIA Gastrointestinal: DYSPHAGIA Hepatic: NONE Renal: nephrolithiasis Musculoskeletal: osteoarthritis, arthritis of neck Psychiatric: NONE Endocrine: NONE Blood Disorders: NONE Cancer(s): NONE 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 Ambulation: walker IADLs Needs Assist: shopping, housework, finances, food prep, telephone, transportation, medication admin. Assessment/Plan [facility] Consult Acknowledgment - Thank you for your consult request.
[2018-01-15 12:00] VITALS: BP 112/72
--- NOTE | 2018-01-15 12:04 | PN- Att Addend ---
Attending Addendum Attending Brief Note Patient seen and examined. Plan of care discussed with the medical team and the patient. Available lab work and radiology test reports were reviewed. Patient is arousable but confused. Is able to answer questions but is disoriented at his baseline. His BP has been low 88/54. We checked this morning was systolic 102. MAXIMUM TEMPERATURE 102.6. Exam: General: Patient awake lethargic disoriented but without any distress CVS: S1 plus S2 without any murmur or gallops Chest: Few scattered crepitation without any wheeze. There is no respiratory distress. Abdomen: Soft non-tender, bowel sound present, no guarding or rebound POLYSOMNOGRAPHY TECHNOLOGIST: Awake without any focal neuro deficit and follows commands appropriately Extremities: No edema; no clubbing or cyanosis noted Assessment and problem list * aspiration pneumonitis/aspiration pneumonia, acute hypoxic respiratory failure * metabolic encephalopathy * hypotension * sepsis * History of dementia * Mild rhabdomyolysis with CK of 256 Plan * continue IV fluids * Continue IV Unasyn * Okay to the patient for his comfort with aspiration precautions while sitting up * Follow-up cortisol level * Check TSH and free T4 Current Medications Sig/Mckenzie Start time Last Medication Dose Route Stop Time Status Admin Albuterol Sulfate 3 ML Q4P PRN 01/15 1130 AC INH Albuterol Sulfate 3 ML ONCE ONE 01/15 0500 DC 01/15 INH 01/15 0501 0453 Albuterol Sulfate 3 ML ONCE ONE 01/14 2245 DC 01/14 INH 01/14 224 2246 Ampicillin Sodium/ 3,000 MG Q6 01/15 0600 AC 01/15 Sulbactam Sodium IV 1146 Sodium Chloride 100 ML Ampicillin Sodium/ 3,000 MG ONCE ONE 01/15 0030 DC 01/15 Sulbactam Sodium IV 01/15 0059 0053 Sodium Chloride 100 ML Aspirin 81 MG DAILY 01/15 0900 AC PO Dextrose/Sodium 1,000 ML .Q20H 01/15 0230 AC 01/15 Chloride IV 0519 Escitalopram Oxalate 5 MG DAILY 01/15 0900 AC PO Gabapentin 100 MG Q8 01/15 0600 DC PO Heparin Sodium 5,000 UNIT Q8 01/15 0600 AC 01/15 (Porcine) SC 0634 Hydrocortisone 50 MG Q8 01/15 1400 AC Sodium Succinate IV Hydrocortisone 100 MG ONE ONE 01/15 0515 DC 01/15 Sodium Succinate IV 01/15 0516 0519 Ipratropium [place] 2.5 ML ONCE ONE 01/14 2245 DC 01/14 INH 01/14 2246 224 Ketorolac 0 .STK-MED ONE 01/15 0120 DC Tromethamine .ROUTE Ketorolac 15 MG ONCE ONE 01/15 0115 DC 01/15 Tromethamine IV 01/15 0116 0139 Ketorolac 15 MG ONCE ONE 01/14 2245 DC 01/14 Tromethamine IV 01/14 2246 2320 Ondansetron HCl 4 MG ONCE ONE 01/14 2245 DC 01/14 IV 01/14 224 2320 Sodium Chloride 250 ML BOLUS ONE 01/15 0930 DC 01/15 IV 01/15 1029 0922 Sodium Chloride 500 ML BOLUS ONE 01/15 0645 DC 01/15 IV 01/15 0744 0650 Sodium Chloride 1,000 ML BOLUS ONE 01/15 0515 DC 01/15 IV 01/15 0614 0503 Sodium Chloride 500 ML BOLUS ONE 01/15 0345 DC 01/15 IV 01/15 0444 0349 Sodium Chloride 1,000 ML BOLUS ONE 01/15 0245 DC 01/15 IV 01/15 0344 0235 Sodium Chloride 1,000 ML BOLUS ONE 01/15 0115 DC 01/15 IV 01/15 0214 0139 Sodium Chloride 500 ML BOLUS ONE 01/14 2345 DC 01/15 IV 01/15 0044 0023 Sodium Chloride 500 ML BOLUS ONE 01/14 2245 DC 01/14 IV 01/14 2344 2320 Laboratory Tests 01/15/18 0653: Cortisol AM Sample Cancelled 01/15/18 0650: Anion Gap 6, Estimated GFR > 60, BUN/Creatinine Ratio 28.6 H, Lactic Acid 1.3, Cortisol AM Sample Pending, CBC w Diff MAN DIFF ORDERED, RBC 3.44 L, MCV 93.7, MCH 31.5 H, MCHC 33.7, RDW 14.1, MPV 7.8, Gran % 88.5 H, Lymphocytes % 6.5 L, Monocytes % 4.9, Eosinophils % 0, Basophils % 0.1, Absolute Granulocytes 5.3, Segmented Neutrophils 68, Band Neutrophils 21 H, Absolute Lymphocytes 0.4 L, Lymphocytes 7 L, Monocytes 4, Absolute Monocytes 0.3, Absolute Eosinophils 0, Absolute Basophils 0, Platelet Estimate DECREASED, Anisocytosis 1+ 01/15/18440: Urinalysis MOD H, Urine Color YEL, Urine Clarity CLEAR, Urine pH 6.0, Ur Specific [place] 1.025, Urine Protein TRACE H, Urine Ketones 15 H, Urine Nitrite NEG, Urine Bilirubin NEG, Urine Urobilinogen 1.0, Ur Leukocyte Esterase NEG, Ur Microscopic SEDIMENT EXAMINED, Urine RBC 1-3, Urine WBC 1-3 H, Ur Epithelial Cells FEW, Hyaline Casts 3-5 H, Urine Mucus MANY H, Urine Hemoglobin NEG, Urine Glucose NEG 01/15/18 0132: Lactic Acid Cancelled 01/14/18 2359: Anion Gap 11, Estimated GFR > 60, BUN/Creatinine Ratio 22.2, Glucose 98, Lactic Acid 1.2, Calcium 8.9, Total Bilirubin 1.0, AST 18, ALT 26, Alkaline Phosphatase 75, Creatine Kinase 256 H, Troponin I < 0.01, Efe-F-Vrusefdwnpd Pept 146 H, Total Protein 6.5, Albumin 3.5, Globulin 3.0, Albumin/Globulin Ratio 1.2 01/14/182304: CBC w Diff NO MAN DIFF REQ, RBC 4.74, MCV 93.0, MCH 30.8, MCHC 33.1, RDW 14.1, MPV 8.3, Gran % 85.7 H, Lymphocytes % 9.3 L, Monocytes % 4.4, Eosinophils % 0.5, Basophils % 0.1, Absolute Granulocytes 3.6, Absolute Lymphocytes 0.4 L, Absolute Monocytes 0.2, Absolute Eosinophils 0, Absolute Basophils 0 Microbiology 01/15 111 LOWER RESP: Respiratory Culture - RECD 01/15 111 LOWER RESP: Gram Stain - RECD 01/15 08 UPPER RESP: Surveillance Culture - RECD 01/15 08 GI: Surveillance Culture - RECD 01/15 441 URINE ROUT: Urine Culture - RECD 01/15 441 URINE ROUT: Legionella Antigen - COMP 01/15 441 URINE ROUT: Streptococcus pneumoniae Antigen (M - COMP 01/14 2315 BLOOD: Blood Culture - RES 01/14 2300 BLOOD: Blood Culture - RES Vital Signs Date Time Temp Pulse Resp B/P B/P Pulse O2 O2 Flow FiO2 Mean Ox Delivery Rate 01/15 1122 Nasal 2.0L Cannula 01/15 0815 94 Nasal 2.0L Cannula 01/15 815 98.5 84 17 88/54 94 Nasal 2.0L Cannula 01/15 0736 81 88/49 01/15 0718 98.6 84 18 79/47 95 Nasal 2.0L Cannula 01/15 0609 98.7 90 18 74/38 97 Nasal 2.0L Cannula 01/15 0515 78/34 01/15 0515 78/34 01/15 0454 93 Nasal 2.0L Cannula 01/15 0441 88 18 80/32 96 Nasal 2.0L Cannula 01/15 0350 99.9 87 20 60/25 96 Room Air 01/15 0229 100.0 96 18 81/51 94 Room Air 01/15 0059 102.4 01/14 2350 102.6 109 20 105/58 95 Room Air 01/14 2259 94 01/14 2230 95 Room Air 01/14 2210 99.2 110 20 119/57 95 Room Air Intake & Output 01/15 1600 01/15 0800 01/15 0000 Intake Total 0 Output Total Balance 0 Intake, Oral 0 Patient 167 lb 167 lb 155 lb Weight Weight Bed scale Bed scale Reported by Patient Measurement Method
[2018-01-15 16:00] VITALS: BP 122/74
--- NOTE | 2018-01-15 20:02 | PN- Housestaff ---
Subjective Follow-up For: #Aspirational Pneumonia #metabolic Encephalopathy? #Hypotension #Sepsis (fever, infection, hypotension) Complaints: no complaints Subjective: I have seen and examined the patient today morning, he seems to be doing fine, afebrile at 98.0, pulse of 76, respiration of 20, blood pressure of 122/74, he was 95% saturating on 2 L of nasal cannula. He was resting comfortably in the bed, did not have any new complaints. He has received at least 5 L of normal saline so far. Review of Systems Constitutional: Reports: see HPI. Objective Last 24 Hrs of Vital Signs/I&O Vital Signs Date Time Temp Pulse Resp B/P B/P Pulse O2 O2 Flow FiO2 Mean Ox Delivery Rate 01/15 1600 98.0 76 10 122/74 93 Nasal 2.0L Cannula 01/15 1600 93 Nasal 2.0L Cannula 01/15 1200 97.8 94 27 112/72 95 Nasal 2.0L Cannula 01/15 1200 95 Nasal 2.0L Cannula 01/15 1122 Nasal 2.0L Cannula 01/15 0815 94 Nasal 2.0L Cannula 01/15 0815 98.5 84 17 88/54 94 Nasal 2.0L Cannula 01/15 0736 81 88/49 01/15 0718 98.6 84 18 79/47 95 Nasal 2.0L Cannula 01/15 0609 98.7 90 18 74/38 97 Nasal 2.0L Cannula 01/15 0515 78/34 01/15 0515 78/34 01/15 0454 93 Nasal 2.0L Cannula 01/15 0441 88 18 80/32 96 Nasal 2.0L Cannula 01/15 0350 99.9 87 20 60/25 96 Room Air 01/15 0229 100.0 96 18 81/51 94 Room Air 01/15 0059 102.4 01/14 2350 102.6 109 20 105/58 95 Room Air 01/14 2259 94 01/14 2230 95 Room Air 01/14 2210 99.2 110 20 119/57 95 Room Air Intake & Output 01/15 1600 01/15 0800 01/15 0000 Intake Total 601 0 Output Total 450 Balance 151 0 Intake, IV 601 Intake, Oral 0 0 Output, Urine 450 Patient 75.75 kg 75.778 kg 70.307 kg Weight Weight Bed scale Bed scale Reported by Patient Measurement Method Physical Exam General Appearance: Alert, Oriented X3, Cooperative, No Acute Distress Skin: No Rashes, No Breakdown HEENT: Atraumatic, PERRLA, EOMI Cardiovascular: Normal S1, Normal S2 Lungs: Normal Air Movement Abdomen: Normal Bowel Sounds, Soft, No Hepatospenomegaly Extremities: No Clubbing, No Cyanosis Vascular: Normal Pulses Current Medications: Current Medications Sig/Mckenzie Start time Last Medication Dose Route Stop Time Status Admin Albuterol Sulfate 3 ML Q4P PRN 01/15 1130 AC INH Albuterol Sulfate 3 ML ONCE ONE 01/15 0500 DC 01/15 INH 01/15 0501 0453 Albuterol Sulfate 3 ML ONCE ONE 01/14 2245 DC 01/14 INH 01/14 2246 224 Ampicillin Sodium/ 3,000 MG Q6 01/15 0600 AC 01/15 Sulbactam Sodium IV 1746 Sodium Chloride 100 ML Ampicillin Sodium/ 3,000 MG ONCE ONE 01/15 0030 DC 01/15 Sulbactam Sodium IV 01/15 0059 0053 Sodium Chloride 100 ML Aspirin 81 MG DAILY 01/15 0900 AC PO Dextrose/Sodium 1,000 ML .Q20H 01/15 0230 AC 01/15 Chloride IV 0519 Escitalopram Oxalate 5 MG DAILY 01/15 0900 AC PO Gabapentin 100 MG Q8 01/15 0600 DC PO Heparin Sodium 5,000 UNIT Q8 01/15 0600 AC 01/15 (Porcine) SC 1422 Hydrocortisone 50 MG Q8 01/15 1400 AC 01/15 Sodium Succinate IV 1422 Hydrocortisone 100 MG ONE ONE 01/15 0515 DC 01/15 Sodium Succinate IV 01/15 0516 0519 Ipratropium [place] 2.5 ML ONCE ONE 01/14 2245 DC 01/14 INH 01/14 2246 224 Ketorolac 0 .STK-MED ONE 01/15 0120 DC Tromethamine .ROUTE Ketorolac 15 MG ONCE ONE 01/15 0115 DC 01/15 Tromethamine IV 01/15 011 0139 Ketorolac 15 MG ONCE ONE 01/14 2245 DC 01/14 Tromethamine IV 01/14 2246 2320 Lorazepam 0.5 MG ONCE ONE 01/15 1500 DC 01/15 IV 01/15 1501 1505 Ondansetron HCl 4 MG ONCE ONE 01/14 2245 DC 01/14 IV 05/26 2246 2320 Sodium Chloride 250 ML BOLUS ONE 01/15 0930 DC 01/15 IV 01/15 1029 0922 Sodium Chloride 500 ML BOLUS ONE 01/15 0645 DC 01/15 IV 01/15 0744 0650 Sodium Chloride 1,000 ML BOLUS ONE 01/15 0515 DC 01/15 IV 01/15 0614 0503 Sodium Chloride 500 ML BOLUS ONE 01/15 0345 DC 01/15 IV 01/15 0444 0349 Sodium Chloride 1,000 ML BOLUS ONE 01/15 0245 DC 01/15 IV 01/15 0344 0235 Sodium Chloride 1,000 ML BOLUS ONE 01/15 0115 DC 01/15 IV 01/15 0214 0139 Sodium Chloride 500 ML BOLUS ONE 01/14 2345 DC 01/15 IV 01/15 0044 0023 Sodium Chloride 500 ML BOLUS ONE 01/14 2245 DC 01/14 IV 01/14 2344 2320 Last 24 Hrs of Lab/Harley Results Last 24 Hrs of Labs/Mics: Laboratory Tests 01/15/18 0653: Cortisol AM Sample Cancelled 01/15/18 0650: Anion Gap 6, Estimated GFR > 60, BUN/Creatinine Ratio 28.6 H, Lactic Acid 1.3, Cortisol AM Sample > 123.0 H, CBC w Diff MAN DIFF ORDERED, RBC 3.44 L, MCV 93.7, MCH 31.5 H, MCHC 33.7, RDW 14.1, MPV 7.8, Gran % 88.5 H, Lymphocytes % 6.5 L, Monocytes % 4.9, Eosinophils % 0, Basophils % 0.1, Absolute Granulocytes 5.3, Segmented Neutrophils 68, Band Neutrophils 21 H, Absolute Lymphocytes 0.4 L, Lymphocytes 7 L, Monocytes 4, Absolute Monocytes 0.3, Absolute Eosinophils 0 , Absolute Basophils 0, Platelet Estimate DECREASED, Anisocytosis 1+ 01/15/18 0441: Urinalysis MOD H, Urine Color YEL, Urine Clarity CLEAR, Urine pH 6.0, Ur Specific [place] 1.025, Urine Protein TRACE H, Urine Ketones 15 H, Urine Nitrite NEG, Urine Bilirubin NEG, Urine Urobilinogen 1.0, Ur Leukocyte Esterase NEG, Ur Microscopic SEDIMENT EXAMINED, Urine RBC 1-3, Urine WBC 1-3 H, Ur Epithelial Cells FEW, Hyaline Casts 3-5 H, Urine Mucus MANY H, Urine Hemoglobin NEG, Urine Glucose NEG 05/27/18 0132: Lactic Acid Cancelled 01/14/18 2359: Anion Gap 11, Estimated GFR > 60, BUN/Creatinine Ratio 22.2, Glucose 98, Lactic Acid 1.2, Calcium 8.9, Total Bilirubin 1.0, AST 18, ALT 26, Alkaline Phosphatase 75, Creatine Kinase 256 H, Troponin I < 0.01, Ykj-Q-Mlmavmfaiqo Pept 146 H, Total Protein 6.5, Albumin 3.5, Globulin 3.0, Albumin/Globulin Ratio 1.2 01/14/18 2305: CBC w Diff NO MAN DIFF REQ, RBC 4.74, MCV 93.0, MCH 30.8, MCHC 33.1, RDW 14.1, MPV 8.3, Gran % 85.7 H, Lymphocytes % 9.3 L, Monocytes % 4.4, Eosinophils % 0.5, Basophils % 0.1, Absolute Granulocytes 3.6, Absolute Lymphocytes 0.4 L, Absolute Monocytes 0.2, Absolute Eosinophils 0, Absolute Basophils 0 Microbiology 01/15 111 LOWER RESP: Respiratory Culture - RES 01/15 1112 LOWER RESP: Gram Stain - RES 01/15 08 UPPER RESP: Surveillance Culture - RECD 01/15 08 GI: Surveillance Culture - RECD 01/15 441 URINE ROUT: Urine Culture - RECD 01/15 441 URINE ROUT: Legionella Antigen - COMP 01/15 441 URINE ROUT: Streptococcus pneumoniae Antigen (M - COMP 01/14 2315 BLOOD: Blood Culture - RES 01/14 2300 BLOOD: Blood Culture - RES Lines/Diet/Fluids Restraints: none Assessment/Plan Assessment: Mr Gerardo an 82-year-old man with past medical history of Alzheimer's dementia, hyperlipidemia, history of dysphagia with failed swallow evaluation in the past, currently on pured diet was brought in from [facility] with chief complain of temperature of 100.8 along with a mechanical fall (unwitnessed) without any loss of consciousness on the day of admission and one episode of vomiting. Upon arrival at the emergency department he was found to be hypoxemic with saturations and 89%. His admission vitals were temperature of 102.6, pulse rate of 109, respiration of 20, blood pressure of 105/58, he wonders 95% saturating on room air. He was found to have a low white count of 4.2, rest of the electrolytes and kidney functions were normal, liver function tests were normal, creatinine kinase was elevated to 256. Head CT did not show any acute intracranial findings. CT abdominal/pelvis and chest were groundglass opacities in both lungs, nonobstructing left upper lobe renal calculus and degenerative changes throughout the spine and bilateral hip. Problem List alongwith Assessment and plan : #1 Aspiration Pneumonia * Continue Unasyn 3 g every 8 hours. * Ct follow sputum cultures/blood cultures * Continue to follow CBC * Ct aspiration precautions. * swallow evalve pending * ct to keep patient NPO. * Strep pneumonia and legionella negative * D/c fluids when BP more stable. #2 sepsis * BP stabilized after 6 liters and iv stress dose steroids. * As per family's request, no pressors at this time. * IV ketorolac as an antipyretic, as the patient has an allergy reaction to acetaminophen. * will also check TSH, Ft4 #3 acute hypoxic respiratory failure- * Ct TRC nebs * ct oxygen supplementation as needed. #4 Ct lexapro, aspirin NPO Swallow evalve pending DNR/DNI SC heparin Problem List: 1. Fall 2. Aspiration pneumonia 3. Pneumonia 4. Fever 5. DNI (do not intubate) 6. DNR (do not resuscitate) Pain Ratin Pain Location: .. Pain Goal: Remain pain free Pain Plan: tyelnol Tomorrow's Labs & Rationales: cbc. bep
[2018-01-15 23:00] VITALS: BP 102/72
[2018-01-16 04:43] LABS: ABSOLUTE BASOPHIL COUNT 0 /CUMM (0.0-0.2); ABSOLUTE EOSINOPHIL COUNT 0 /CUMM (0.0-0.7); ABSOLUTE GRANULOCYTE CT 7.7 /CUMM (1.4-6.5); ABSOLUTE LYMPH COUNT 0.4 /CUMM (1.2-3.4); ABSOLUTE MONOCYTE COUNT 0.2 /CUMM (0.10-0.60); BASOPHIL % 0 % (0.0-2.0); EOSINOPHIL % 0 % (0-5); GRANULOCYTE % 92.6 % (42.2-75.2); HEMATOCRIT 34.7 % (42-52); MEAN CORPUSCULAR HGB 31.5 PG (27.0-31.0); MEAN CORPUSCULAR HGB CONC 33.6 G/DL (33.0-37.0); MEAN CORPUSCULAR VOLUME 93.7 FL (80.0-94.0); PLATELET COUNT 138 /CUMM (130-400); RBC DISTRIBUTION WIDTH 14.1 % (11.5-14.5); WHITE BLOOD CELL COUNT 8.3 /CUMM (4.8-10.8)
[2018-01-16 08:00] VITALS: BP 122/80
--- NOTE | 2018-01-16 08:29 | PN- Resident CRCU ---
Subjective HPI/CRCU Issues: No acute events overnight. Still NPO. Pending swallow eval and family decisions regarding feeding. Objective Vital Signs & I&O Last 8 Hrs of Vitals and I&O: Laboratory Tests 01/16/18 0420: Anion Gap 11, Estimated GFR > 60, BUN/Creatinine Ratio 32.9 H, CBC w Diff MAN DIFF ORDERED, RBC 3.70 L, MCV 93.7, MCH 31.5 H, MCHC 33.6, RDW 14.1, MPV 8.0, Gran % 92.6 H, Lymphocytes % 4.6 L, Monocytes % 2.8, Eosinophils % 0, Basophils % 0, Absolute Granulocytes 7.7 H, Segmented Neutrophils 60, Band Neutrophils 31 H, Absolute Lymphocytes 0.4 L, Lymphocytes 2 L, Monocytes 3, Absolute Monocytes 0.2, Absolute Eosinophils 0, Absolute Basophils 0, Metamyelocytes 4 H, Platelet Estimate DECREASED, Poikilocytosis 1+, Ovalocytes 1+ Vital Signs Date Time Temp Pulse Resp B/P B/P Pulse O2 O2 Flow FiO2 Mean Ox Delivery Rate 01/16 0913 99 Nasal 2.0L Cannula 01/16 0800 98.1 88 28 122/80 100 Nasal 2.0L Cannula 01/16 0800 99 Nasal 2.0L Cannula 01/16 0400 95 Nasal 2.0L Cannula 01/16 0259 92 Nasal 2.0L Cannula Current Medications: Current Medications Sig/Mckenzie Start time Last Medication Dose Route Stop Time Status Admin Albuterol Sulfate 3 ML Q4P PRN 01/15 1130 AC 01/16 INH 0857 Ampicillin Sodium/ 3,000 MG Q6H 01/16 0800 AC 01/16 Sulbactam Sodium IV 0756 Sodium Chloride 100 ML Ampicillin Sodium/ 3,000 MG Q6 01/15 0600 DC 01/16 Sulbactam Sodium IV 0231 Sodium Chloride 100 ML Aspirin 81 MG DAILY 01/15 0900 AC PO Dextrose/Sodium 1,000 ML Q20H 01/16 0930 AC 01/16 Chloride IV 1009 Dextrose/Sodium 1,000 ML .Q20H 01/15 0230 DC 01/15 Chloride IV 0519 Escitalopram Oxalate 5 MG DAILY 01/15 0900 AC PO Heparin Sodium 5,000 UNIT Q8 01/15 0600 AC 01/16 (Porcine) SC 0554 Hydrocortisone 50 MG Q8 01/15 1400 AC 01/16 Sodium Succinate IV 01/16 1500 0555 Lorazepam 0.5 MG ONCE ONE 01/15 1500 DC 01/15 IV 01/15 1501 1505 Potassium Chloride 10 MEQ ONCE ONE 01/16 0845 CAN IV 01/16 0846 Impression/Plan Impression/Problem List Impression: A: Mr Gerardo an 82-year-old man with past medical history of Alzheimer's dementia, hyperlipidemia, history of dysphagia with failed swallow evaluation in the past, currently on pured diet was brought in from [facility] with chief complain of temperature of 100.8 along with a mechanical fall (unwitnessed) without any loss of consciousness on the day of admission and one episode of vomiting. Upon arrival at the emergency department he was found to be hypoxemic with saturations and 89%. His admission vitals were temperature of 102.6, pulse rate of 109, respiration of 20, blood pressure of 105/58, he wonders 95% saturating on room air. He was found to have a low white count of 4.2, rest of the electrolytes and kidney functions were normal, liver function tests were normal, creatinine kinase was elevated to 256. Head CT/cervical spine did not show any acute intracranial findings. CT abdominal/pelvis and chest revealed groundglass opacities in both lungs, nonobstructing left upper lobe renal calculus and degenerative changes throughout the spine and bilateral hip. Strep pneumonia and legionella negative Problem List alongwith Assessment and plan : #Acute hypoxic respiratory failure most likely 2/2 aspiration pneumonia sepsis Initial blood pressure as low as 60/25. Received 6L of fluid resuscitation and IV solucortef 100mg x1 bolus in ED for possible adrenal insuffiency. AM cortisol was found to be elevated. IV solucortef was stopped after 1 day. TSH and free t4 were normal -Continue Unasyn 3 g every 8 hours. -Ct follow sputum cultures/blood cultures -swallow evalve pending -ct to keep patient NPO, unless family decides otherwise -BP currently stable, as per family's request, no pressors at this time. -IV ketorolac as an antipyretic, as the patient has an allergy reaction to acetaminophen. -Ct aspiration precautions. -cont IVF, stop fluids when BP more stable. switched to d51/2NS from d5w for mild hypernatremia -cont trc/nebs #Unwtinessed fall Head and cervical neck CT revaeled no acute intracranial findings, no fracture or or malalignment. There was multilevel degenerative changes throughout. -cont to monitor #Renal stone Ct found Nonobstructing left upper pole renal calculus. -f/u otupatient NPO Swallow evalve pending DNR/DNI SC heparin Problem List: 1. Sepsis 2. Aspiration pneumonia Pain Ratin Tomorrow's Labs & Rationales: icu cbc
--- NOTE | 2018-01-16 10:58 | PN- Att Addend ---
Attending Addendum Attending Brief Note Patient seen and examined. Plan of care discussed with the medical team and the patient. Available lab work and radiology test reports were reviewed. Patient is arousable but confused. Is able to answer questions but is disoriented at his baseline. He wants to eat. His BP has improved and this morning BP was 122 /80. Exam: General: Patient awake lethargic disoriented but without any distress CVS: S1 plus S2 without any murmur or gallops Chest: Few scattered crepitation without any wheeze. There is no respiratory distress. Abdomen: Soft non-tender, bowel sound present, no guarding or rebound PHILANTHROPY OFFICER: Awake without any focal neuro deficit and follows commands appropriately Extremities: No edema; no clubbing or cyanosis noted Assessment and problem list * aspiration pneumonitis/aspiration pneumonia, acute hypoxic respiratory failure * metabolic encephalopathy * hypotension- improved * sepsis * History of dementia * Mild rhabdomyolysis with CK of 256 Plan * continue IV fluids but change fluid to D5 half-normal saline since chloride is elevated * Continue IV Unasyn * Okay to feed the patient for his comfort with aspiration precautions while sitting up; patient can be given pured diet with thickened liquid * Discontinue had a cortisone Current Medications Sig/Mckenzie Start time Last Medication Dose Route Stop Time Status Admin Albuterol Sulfate 3 ML Q4P PRN 01/15 1130 AC 01/16 INH 0857 Ampicillin Sodium/ 3,000 MG Q6H 01/16 0800 AC 01/16 Sulbactam Sodium IV 0756 Sodium Chloride 100 ML Ampicillin Sodium/ 3,000 MG Q6 01/15 0600 DC 01/16 Sulbactam Sodium IV 0231 Sodium Chloride 100 ML Aspirin 81 MG DAILY 01/15 0900 AC PO Dextrose/Sodium 1,000 ML Q20H 01/16 0930 AC 01/16 Chloride IV 1009 Dextrose/Sodium 1,000 ML .Q20H 01/15 0230 DC 01/15 Chloride IV 0519 Escitalopram Oxalate 5 MG DAILY 01/15 0900 AC PO Heparin Sodium 5,000 UNIT Q8 01/15 0600 AC 01/16 (Porcine) SC 0554 Hydrocortisone 50 MG Q8 01/15 1400 AC 01/16 Sodium Succinate IV 01/16 1500 0555 Lorazepam 0.5 MG ONCE ONE 01/15 1500 DC 01/15 IV 01/15 1501 1505 Potassium Chloride 10 MEQ ONCE ONE 01/16 0845 CAN IV 01/16 0846 Laboratory Tests 01/16/18 0420: Anion Gap 11, Estimated GFR > 60, BUN/Creatinine Ratio 32.9 H, CBC w Diff MAN DIFF ORDERED, RBC 3.70 L, MCV 93.7, MCH 31.5 H, MCHC 33.6, RDW 14.1, MPV 8.0, Gran % 92.6 H, Lymphocytes % 4.6 L, Monocytes % 2.8, Eosinophils % 0, Basophils % 0, Absolute Granulocytes 7.7 H, Segmented Neutrophils 60, Band Neutrophils 31 H, Absolute Lymphocytes 0.4 L, Lymphocytes 2 L, Monocytes 3, Absolute Monocytes 0.2, Absolute Eosinophils 0, Absolute Basophils 0, Metamyelocytes 4 H, Platelet Estimate DECREASED, Poikilocytosis 1+, Ovalocytes 1+ 01/15/18 0653: Cortisol AM Sample Cancelled 01/15/18 0650: Anion Gap 6, Estimated GFR > 60, BUN/Creatinine Ratio 28.6 H, Lactic Acid 1.3, TSH 0.645, Thyroxine (T4) 5.7, Cortisol AM Sample > 123.0 H, CBC w Diff MAN DIFF ORDERED, RBC 3.44 L, MCV 93.7, MCH 31.5 H, MCHC 33.7, RDW 14.1, MPV 7.8, Gran % 88.5 H, Lymphocytes % 6.5 L, Monocytes % 4.9, Eosinophils % 0, Basophils % 0.1, Absolute Granulocytes 5.3, Segmented Neutrophils 68, Band Neutrophils 21 H, Absolute Lymphocytes 0.4 L, Lymphocytes 7 L, Monocytes 4, Absolute Monocytes 0.3, Absolute Eosinophils 0, Absolute Basophils 0, Platelet Estimate DECREASED, Anisocytosis 1+ 01/15/18 0441: Urinalysis MOD H, Urine Color YEL, Urine Clarity CLEAR, Urine pH 6.0, Ur Specific [place] 1.025, Urine Protein TRACE H, Urine Ketones 15 H, Urine Nitrite NEG, Urine Bilirubin NEG, Urine Urobilinogen 1.0, Ur Leukocyte Esterase NEG, Ur Microscopic SEDIMENT EXAMINED, Urine RBC 1-3, Urine WBC 1-3 H, Ur Epithelial Cells FEW, Hyaline Casts 3-5 H, Urine Mucus MANY H, Urine Hemoglobin NEG, Urine Glucose NEG 01/15/18 0132: Lactic Acid Cancelled 01/14/18 2359: Anion Gap 11, Estimated GFR > 60, BUN/Creatinine Ratio 22.2, Glucose 98, Lactic Acid 1.2, Calcium 8.9, Total Bilirubin 1.0, AST 18, ALT 26, Alkaline Phosphatase 75, Creatine Kinase 256 H, Troponin I < 0.01, Nky-G-Srvrldzjjcx Pept 146 H, Total Protein 6.5, Albumin 3.5, Globulin 3.0, Albumin/Globulin Ratio 1.2 01/14/182304: CBC w Diff NO MAN DIFF REQ, RBC 4.74, MCV 93.0, MCH 30.8, MCHC 33.1, RDW 14.1, MPV 8.3, Gran % 85.7 H, Lymphocytes % 9.3 L, Monocytes % 4.4, Eosinophils % 0.5, Basophils % 0.1, Absolute Granulocytes 3.6, Absolute Lymphocytes 0.4 L, Absolute Monocytes 0.2, Absolute Eosinophils 0, Absolute Basophils 0 Microbiology 01/15 1112 LOWER RESP: Respiratory Culture - RES 01/15 1112 LOWER RESP: Gram Stain - RES 01/15 0800 UPPER RESP: Surveillance Culture - COMP 01/15 08 GI: Surveillance Culture - RECD 01/15 441 URINE ROUT: Urine Culture - RES 01/15 441 URINE ROUT: Legionella Antigen - COMP 01/15 441 URINE ROUT: Streptococcus pneumoniae Antigen (M - COMP 01/14 2315 BLOOD: Blood Culture - RES 01/14 2300 BLOOD: Blood Culture - RES Vital Signs Date Time Temp Pulse Resp B/P B/P Pulse O2 O2 Flow FiO2 Mean Ox Delivery Rate 01/16 0913 99 Nasal 2.0L Cannula 01/16 0800 98.1 88 28 122/80 100 Nasal 2.0L Cannula 01/16 0800 99 Nasal 2.0L Cannula 01/16 0400 95 Nasal 2.0L Cannula 01/16 0259 92 Nasal 2.0L Cannula 01/16 0000 97 Nasal 2.0L Cannula 01/15 2300 98.3 76 14 102/72 97 Nasal 2.0L Cannula 01/15 2128 96 Nasal 2.0L Cannula 01/15 2000 99 Nasal 2.0L Cannula 01/15 1600 98.0 76 10 122/74 93 Nasal 2.0L Cannula 01/15 1600 93 Nasal 2.0L Cannula 01/15 1200 97.8 94 27 112/72 95 Nasal 2.0L Cannula 01/15 1200 95 Nasal 2.0L Cannula 01/15 1122 Nasal 2.0L Cannula Intake & Output 01/16 1600 01/16 0800 01/16 0000 Intake Total 476 510 Output Total 255 345 Balance 221 165 Intake, IV 476 510 Intake, Oral 0 0 Number 0 0 Bowel Movements Output, Urine 255 345 Patient 179 lb Weight Weight Bed scale Measurement Method
--- NOTE | 2018-01-16 11:02 | Event Note ---
Event Note Event Note: Spoke with Samanta (daughter or patient and CM here at [facility]). Ok to restart puree and nectar thick diet. She understands the risks of aspiration. Patient start cough and choking after food and became more agitated. Family agreed to keep NPO again.
--- NOTE | 2018-01-16 11:07 | PN- Housestaff ---
Subjective Follow-up For: Aspiration Pna Sepsis Hypotension Subjective: No acute events overnight. Asking for food. Restarted diet per family. Review of Systems Constitutional: Reports: see HPI. Objective Last 24 Hrs of Vital Signs/I&O Vital Signs Date Time Temp Pulse Resp B/P B/P Pulse O2 O2 Flow FiO2 Mean Ox Delivery Rate 01/16 0913 99 Nasal 2.0L Cannula 01/16 0800 98.1 88 28 122/80 100 Nasal 2.0L Cannula 01/16 0800 99 Nasal 2.0L Cannula 01/16 0400 95 Nasal 2.0L Cannula 01/16 0259 92 Nasal 2.0L Cannula 01/16 0000 97 Nasal 2.0L Cannula 01/15 2300 98.3 76 14 102/72 97 Nasal 2.0L Cannula 01/15 2128 96 Nasal 2.0L Cannula 01/15 2000 99 Nasal 2.0L Cannula 01/15 1600 98.0 76 10 122/74 93 Nasal 2.0L Cannula 01/15 1600 93 Nasal 2.0L Cannula 01/15 1200 97.8 94 27 112/72 95 Nasal 2.0L Cannula 01/15 1200 95 Nasal 2.0L Cannula 01/15 1122 Nasal 2.0L Cannula Intake & Output 01/16 1600 01/16 0800 01/16 0000 Intake Total 476 510 Output Total 255 345 Balance 221 165 Intake, IV 476 510 Intake, Oral 0 0 Number 0 0 Bowel Movements Output, Urine 255 345 Patient 179 lb Weight Weight Bed scale Measurement Method Physical Exam General Appearance: Alert, Cooperative, No Acute Distress Cardiovascular: irregularly irregular Lungs: left lower base crackles. Coarse breath sounds Abdomen: Normal Bowel Sounds, Soft, No Tenderness Extremities: 2+ radial pulses, no LE edema Last 24 Hrs of Lab/Harley Results Last 24 Hrs of Labs/Mics: Laboratory Tests 01/16/18 0420: Anion Gap 11, Estimated GFR > 60, BUN/Creatinine Ratio 32.9 H, CBC w Diff MAN DIFF ORDERED, RBC 3.70 L, MCV 93.7, MCH 31.5 H, MCHC 33.6, RDW 14.1, MPV 8.0, Gran % 92.6 H, Lymphocytes % 4.6 L, Monocytes % 2.8, Eosinophils % 0, Basophils % 0, Absolute Granulocytes 7.7 H, Segmented Neutrophils 60, Band Neutrophils 31 H, Absolute Lymphocytes 0.4 L, Lymphocytes 2 L, Monocytes 3, Absolute Monocytes 0.2, Absolute Eosinophils 0, Absolute Basophils 0, Metamyelocytes 4 H, Platelet Estimate DECREASED, Poikilocytosis 1+, Ovalocytes 1+ Assessment/Plan Assessment: A: 82-year-old man with past medical history of Alzheimer's dementia, hyperlipidemia, history of dysphagia with failed swallow evaluation in the past, currently on pured diet was brought in from [facility] with chief complain of temperature of 100.8 along with a mechanical fall (unwitnessed) without any loss of consciousness on the day of admission and one episode of vomiting. Upon arrival at the emergency department he was found to be hypoxemic with saturations and 89%. His admission vitals were temperature of 102.6, pulse rate of 109, respiration of 20, blood pressure of 105/58, he wonders 95% saturating on room air. He was found to have a low white count of 4.2, rest of the electrolytes and kidney functions were normal, liver function tests were normal, creatinine kinase was elevated to 256. Head CT/cervical spine did not show any acute intracranial findings. CT abdominal/pelvis and chest revealed groundglass opacities in both lungs, nonobstructing left upper lobe renal calculus and degenerative changes throughout the spine and bilateral hip. Strep pneumonia and legionella negative P: #Acute hypoxic respiratory failure most likely 2/2 aspiration pneumonia sepsis Initial blood pressure as low as 60/25. Received 6L of fluid resuscitation and IV solucortef 100mg x1 bolus in ED for possible adrenal insuffiency as family did not want any lines/pressors. AM cortisol was found to be elevated. IV solucortef was stopped after 1 day. TSH and free t4 were normal -Continue Unasyn 3 g every 8 hours. -Ct follow sputum cultures/blood cultures -BP currently stable, as per family's request, no pressors at this time. -IV ketorolac prn as an antipyretic, as the patient has an allergy reaction to acetaminophen. -will start PPI ppx with IV protonix given NSAID -Ct aspiration precautions. -cont IVF, stop fluids when BP more stable. switched to d51/2NS from d5w for mild hypernatremia -cont trc/nebs #Unwtinessed fall Head and cervical neck CT revaeled no acute intracranial findings, no fracture or or malalignment. There was multilevel degenerative changes throughout. -cont to monitor #Renal stone CT found nonobstructing left upper pole renal calculus. -f/u outpatient #home meds -restarted gabapentin, b12 and simvastatin DNR/DNI SC heparin Tried feeding pt but he starting aspirating and becoming agitated from suctioning. Family ok with NPO again. Problem List: 1. Sepsis 2. Aspiration pneumonia Pain Ratin Pain Location: none Pain Goal: Pain 4 or less Pain Plan: ketoralac Tomorrow's Labs & Rationales: cbc icu
[2018-01-16 16:00] VITALS: BP 130/74
[2018-01-16 23:25] VITALS: BP 168/98
[2018-01-17 05:15] LABS: ABSOLUTE BASOPHIL COUNT 0 /CUMM (0.0-0.2); ABSOLUTE EOSINOPHIL COUNT 0 /CUMM (0.0-0.7); ABSOLUTE GRANULOCYTE CT 8.4 /CUMM (1.4-6.5); ABSOLUTE LYMPH COUNT 0.7 /CUMM (1.2-3.4); ABSOLUTE MONOCYTE COUNT 0.3 /CUMM (0.10-0.60); BASOPHIL % 0.2 % (0.0-2.0); EOSINOPHIL % 0.1 % (0-5); GRANULOCYTE % 89.3 % (42.2-75.2); MEAN CORPUSCULAR HGB 31.1 PG (27.0-31.0); MEAN CORPUSCULAR HGB CONC 33.1 G/DL (33.0-37.0); MEAN CORPUSCULAR VOLUME 93.9 FL (80.0-94.0); MEAN PLATELET VOLUME 9.1 FL (7.4-10.4); PLATELET COUNT 161 /CUMM (130-400); RBC DISTRIBUTION WIDTH 14.6 % (11.5-14.5); RED BLOOD CELL CT 4.57 /CUMM (4.70-6.10); WHITE BLOOD CELL COUNT 9.4 /CUMM (4.8-10.8)
[2018-01-17 05:26] LABS: HEMATOCRIT 42.9 % (42-52)
--- NOTE | 2018-01-17 07:49 | PN- Resident CRCU ---
Impression/Plan Impression/Problem List Impression: A: Mr Gerardo an 82-year-old man with past medical history of Alzheimer's dementia, hyperlipidemia, history of dysphagia with failed swallow evaluation in the past, currently on pured diet was brought in from [facility] with chief complain of temperature of 100.8 along with a mechanical fall (unwitnessed) without any loss of consciousness on the day of admission and one episode of vomiting. Upon arrival at the emergency department he was found to be hypoxemic with saturations and 89%. His admission vitals were temperature of 102.6, pulse rate of 109, respiration of 20, blood pressure of 105/58, he wonders 95% saturating on room air. He was found to have a low white count of 4.2, rest of the electrolytes and kidney functions were normal, liver function tests were normal, creatinine kinase was elevated to 256. Head CT/cervical spine did not show any acute intracranial findings. CT abdominal/pelvis and chest revealed groundglass opacities in both lungs, nonobstructing left upper lobe renal calculus and degenerative changes throughout the spine and bilateral hip. Strep pneumonia and legionella negative Problem List alongwith Assessment and plan : #Acute hypoxic respiratory failure most likely 2/2 aspiration pneumonia sepsis Initial blood pressure as low as 60/25. Received 6L of fluid resuscitation and IV solucortef 100mg x1 bolus in ED for possible adrenal insuffiency. AM cortisol was found to be elevated. IV solucortef was stopped after 1 day. TSH and free t4 were normal -Continue Unasyn 3 g every 8 hours. -Ct follow sputum cultures/blood cultures -swallow evalve pending -ct to keep patient NPO, unless family decides otherwise -BP currently stable, as per family's request, no pressors at this time. -IV ketorolac as an antipyretic, as the patient has an allergy reaction to acetaminophen. -Ct aspiration precautions. -cont IVF, stop fluids when BP more stable. switched to d51/2NS from d5w for mild hypernatremia -cont trc/nebs #Unwtinessed fall Head and cervical neck CT revaeled no acute intracranial findings, no fracture or or malalignment. There was multilevel degenerative changes throughout. -cont to monitor #Renal stone Ct found Nonobstructing left upper pole renal calculus. -f/u otupatient NPO Swallow evalve pending DNR/DNI SC heparin
[2018-01-17 08:00] VITALS: BP 120/80
--- NOTE | 2018-01-17 11:53 | RADIOLOGY REPORT ---
EXAMINATION: XR PORTABLE CHEST CLINICAL INFORMATION: Increased oxygen demand. Increased work of breathing. COMPARISON: CT chest from 01/14/2018. Chest x-ray from 01/14/2018. TECHNIQUE: Portable frontal view of the chest was obtained. FINDINGS: There has been progressive airspace and reticular opacities in a perihilar and infrahilar distribution from the prior studies in addition to some vague reticular markings more diffusely within the lungs most notable in the left upper lobe. The cardiomediastinal silhouette is similar to the prior. Minor blunting of the left costophrenic angle may be present. No pneumothorax. There are multilevel degenerative changes of the spine without evidence of acute osseous abnormality. IMPRESSION: Increasing airspace and reticular opacities in the perihilar and infrahilar distribution, with some progressive reticular markings more diffusely within both lungs with a left upper lobe predominance. Findings are suggestive of worsening edema or progressive infectious/inflammatory process.
--- NOTE | 2018-01-17 13:43 | PN- Housestaff ---
Reese BUSH,[facility] 01/17/18 1343: Subjective Follow-up For: Acute hypoxic respiratory failure most likely 2/2 aspiration pneumonia Sepsis Subjective: Patient having worsening oxygen requirements. Mucus secretions are worsened. Has blood tinged sputum due to trauma from frequent suctioning. Started scopolamine patch to help reduce secretions. Review of Systems Constitutional: Reports: see HPI. Respiratory: Reports: cough, short of breath. Objective Last 24 Hrs of Vital Signs/I&O Vital Signs Date Time Temp Pulse Resp B/P B/P Pulse O2 O2 Flow FiO2 Mean Ox Delivery Rate 01/17 1200 98.8 01/17 1200 94 Nasal 4.0L Cannula 01/17 0911 94 Nasal 4.0L Cannula 01/17 0800 97 Nasal 4.0L Cannula 01/17 0800 99.4 104 26 120/80 97 Nasal 4.0L Cannula 01/17 0400 94 Nasal 6.0L Cannula 01/17 0306 89 Nasal 3.0L Cannula 01/17 0000 95 Nasal 3.0L Cannula 01/16 2325 101.9 106 32 168/98 94 Nasal 2.0L Cannula 01/16 2000 94 Nasal 2.0L Cannula 01/16 1600 101.8 111 31 130/74 95 Nasal 2.0L Cannula 01/16 1600 93 Nasal 2.0L Cannula Intake & Output 01/17 1600 01/17 0800 01/17 0000 Intake Total 500 461.2 578.4 Output Total 800 480 600 Balance -300 -18.8 -21.6 Intake, IV 500 461.2 578.4 Intake, Oral 0 0 Number 0 0 0 Bowel Movements Output, Urine 800 480 600 Patient 171 lb Weight Weight Bed scale Measurement Method Physical Exam General Appearance: Alert, agitated this AM, coughing with gurgling sound due to mucus Assessment/Plan Assessment: A: Mr Gerardo an 82-year-old man with past medical history of Alzheimer's dementia, hyperlipidemia, history of dysphagia with failed swallow evaluation in the past, currently on pured diet was brought in from [facility] with chief complain of temperature of 100.8 along with a mechanical fall (unwitnessed) without any loss of consciousness on the day of admission and one episode of vomiting. Upon arrival at the emergency department he was found to be hypoxemic with saturations and 89%. His admission vitals were temperature of 102.6, pulse rate of 109, respiration of 20, blood pressure of 105/58, he wonders 95% saturating on room air. He was found to have a low white count of 4.2, rest of the electrolytes and kidney functions were normal, liver function tests were normal, creatinine kinase was elevated to 256. Head CT/cervical spine did not show any acute intracranial findings. CT abdominal/pelvis and chest revealed groundglass opacities in both lungs, nonobstructing left upper lobe renal calculus and degenerative changes throughout the spine and bilateral hip. Strep pneumonia and legionella negative Problem List alongwith Assessment and plan : #Acute hypoxic respiratory failure most likely 2/2 aspiration pneumonia sepsis Initial blood pressure as low as 60/25. Received 6L of fluid resuscitation and IV solucortef 100mg x1 bolus in ED for possible adrenal insuffiency. AM cortisol was found to be elevated. IV solucortef was stopped after 1 day. TSH and free t4 were normal. Oxygen demand increased from 2L to 4L. Respiratory secretions have increased. Cultures growing klebsiella and yeast. Patient continues to spike intermittent fevers. -giving lasix 20mg IV x1 as repeat CXR shows findings are suggestive of worsening edema -give lasix IV 20 tonight if BP remains stable to reduce fluid load and secretions -cont scopolamine patch trial to decrease secretions. cont suctioning prn. -Continue Unasyn 3 g every 8 hours as klebsiella sensitive to unasyn -Ct follow sputum cultures/blood cultures -ct to keep patient NPO, unless family decides otherwise -BP currently stable, as per family's request, no pressors at this time. -IV ketorolac as an antipyretic, as the patient has an allergy reaction to acetaminophen. -Ct aspiration precautions. -cont IVF, stop fluids when BP more stable. switched to d51/2NS from d5w for mild hypernatremia -cont trc/nebs #Unwtinessed fall Head and cervical neck CT revealed no acute intracranial findings, no fracture or or malalignment. There was multilevel degenerative changes throughout. -cont to monitor #Hypernatremia Switched to d51/2NS from d5w for mild hypernatremia. Hypernatreamia most likely 2/2 from intiial fluid resustcitaion with NS. -cont d51/2 NS -cont to monitor #Renal stone Ct found Nonobstructing left upper pole renal calculus. -f/u otupatient NPO DNR/DNI SC heparin Problem List: 1. Aspiration pneumonia 2. Sepsis 3. Acute respiratory failure with hypoxia Pain Ratin Pain Location: none Pain Goal: Remain pain free Pain Plan: IV opiates IV ketorolac Tomorrow's Labs & Rationales: cbc icu Benjamin Sotelo 01/17/18 1644: Attending MD Review Statement Attending Statement Attending MD Statement: examined this patient, discuss w/resident/PA/CALENDER MACHINE OPERATOR, agreed w/resident/PA/CALENDER MACHINE OPERATOR, discussed with family, reviewed EMR data (avail), discussed with nursing, discussed with case mgmt Attending Assessment/Plan: acute hypoxic resp failure- cxr shows worsening fluid. will give trial of lasix 20mg iv . will repeat dose in evening of 20mg if has good urine output. Increased oxygen requirement. Aspiration pneumonia- f/u blood cultures. cont on unasyn. had fever last night. cont to follow clinically. still npo. dw pts family the care plan.
[2018-01-17 16:00] VITALS: BP 122/84
[2018-01-17 20:03] VITALS: BP 122/60
--- NOTE | 2018-01-18 06:37 | Transfer of Care Summary ---
Hospital Course Course Hospital Course: Reason for transfer to ICU: Acute hypoxic respiratory failure most likely 2/2 aspiration pneumonia sepsis with hypotension 80/50 HPI: 82 yo M a resident of [facility], with h/o Alzheimer's dementia, HLD, dysphagia with aspiration pneumonia (Sep 2017) who has failed swallow evaluation and family has continued to feed him orally pureed nectar thick liquids, was brought in for evaluation of fever (100.8), vomiting x 2 and a wet cough and unwitnessed fall with no LOC. Interval events in the Floor: A: Mr Gerardo an 82-year-old man with past medical history of Alzheimer's dementia, hyperlipidemia, history of dysphagia with failed swallow evaluation in the past, currently on pured diet was brought in from [facility] with chief complain of temperature of 100.8 along with a mechanical fall (unwitnessed) without any loss of consciousness on the day of admission and one episode of vomiting. P: #Acute hypoxic respiratory failure most likely 2/2 aspiration pneumonia sepsis Initial blood pressure as low as 60/25. O2 saturation was 89% on RA. Received 6L of fluid resuscitation and IV solucortef 100mg x1 bolus in ED for possible adrenal insuffiency. Family decided against central line and pressors. AM cortisol was found to be elevated. CT abdominal/pelvis and chest revealed groundglass opacities in both lungs, nonobstructing left upper lobe renal calculus and degenerative changes throughout the spine and bilateral hip. Strep pneumonia and legionella negativeIV solucortef was stopped after 1 day. TSH and free t4 were normal. Creatinine kinase was elevated to 256. Since admission: Oxygen demand increased from 2L to 4L. Respiratory secretions have increased. Patient now having blood tinged sputum due to trauma from suction. Gave lasix 20mg IV x2 as repeat CXR shows findings are suggestive of worsening edema to reduce fluid load and secretions. Cultures growing klebsiella sensitive to unasyn and yeast. Patient continues to spike intermittent fevers. BP currently stable, as per family's request, no pressors at this time. -cont scopolamine patch trial to decrease secretions. cont suctioning prn. -Continue Unasyn -ct to keep patient NPO, unless family decides otherwise, Cont aspiration precautions. -May use tylenol for fevers as trial in the hospital did not cause an allergic reaction #Unwtinessed fall Head and cervical neck CT revealed no acute intracranial findings, no fracture or or malalignment. There was multilevel degenerative changes throughout. #Hypernatremia Switched to d51/2NS from d5NS for mild hypernatremia. Hypernatreamia most likely 2/2 from intial fluid resustcitaion with NS. #Renal stone Ct found Nonobstructing left upper pole renal calculus. -f/u otupatient NIPPV: Yes/ No (details if Yes): NO Antibiotics: Unasyn Catheters/ IV access: Salazar Things to follow up (Blood Cx, Imaging, ABG etc...): Consider pulmonology consult, family wishes for future goals of care DVT prophylaxis: SC heparin Consultants: Consider pulmnology Code status: DNRI DNI Family updated: Yes Assessment/Plan: See above
[2018-01-18 07:04] VITALS: BP 122/70
--- NOTE | 2018-01-18 09:04 | PN- Housestaff ---
Luis M BUSH,Evonne 01/18/18 0903: Subjective Follow-up For: Aspiration pneumonia Subjective: Seen and examined very lethargic, does not offer any complaints. Family at bedside. Daughter reported that patient is confused at baseline however is interactive. was having blood tinged sputum due to trauma from frequent suctioning yesterday which has improved Review of Systems Constitutional: Reports: see HPI. Objective Last 24 Hrs of Vital Signs/I&O Vital Signs Date Time Temp Pulse Resp B/P B/P Pulse O2 O2 Flow FiO2 Mean Ox Delivery Rate 01/18 1114 92 Nasal 2.0L Cannula 01/18 0800 Nasal 2.0L Cannula 01/18 0704 99.2 82 20 122/70 94 01/18 0225 92 Nasal 2.0L Cannula 01/18 0000 Nasal 2.0L Cannula 01/17 2003 98.7 91 19 122/60 90 Nasal Cannula 01/17 1833 94 Nasal 4.0L Cannula 01/17 1733 98.1 01/17 1707 Nasal 3.0L Cannula 01/17 1600 103.5 01/17 1600 103.5 105 20 122/84 98 Nasal 4.0L Cannula 01/17 1600 98 Nasal 3.0L Cannula Intake & Output 01/18 1600 01/18 0800 01/18 0000 Intake Total 500 200 Output Total 1400 900 Balance -900 -700 Intake, IV 500 200 Output, Urine 1400 900 Patient 172 lb 173 lb Weight Weight Bed scale Measurement Method Physical Exam General Appearance: Cooperative HEENT: Atraumatic Cardiovascular: Normal S1, Normal S2 Lungs: decreased breath sounds Abdomen: Normal Bowel Sounds, Soft Neurological: Normal Speech Extremities: No Edema Assessment/Plan Assessment: Mr Gerardo an 82-year-old man with past medical history of Alzheimer's dementia, hyperlipidemia, history of dysphagia with failed swallow evaluation in the past, currently on pured diet was brought in from [facility] with chief complain of temperature of 100.8 along with a mechanical fall (unwitnessed) without any loss of consciousness on the day of admission and one episode of vomiting. Upon arrival at the emergency department he was found to be hypoxemic with saturations and 89%. His admission vitals were temperature of 102.6, pulse rate of 109, respiration of 20, blood pressure of 105/58, he wonders 95% saturating on room air. He was found to have a low white count of 4.2, rest of the electrolytes and kidney functions were normal, liver function tests were normal, creatinine kinase was elevated to 256. Head CT/cervical spine did not show any acute intracranial findings. CT abdominal/pelvis and chest revealed groundglass opacities in both lungs, nonobstructing left upper lobe renal calculus and degenerative changes throughout the spine and bilateral hip. Strep pneumonia and legionella negative Problem List alongwith Assessment and plan : #Acute hypoxic respiratory failure most likely 2/2 aspiration pneumonia sepsis Initial blood pressure as low as 60/25. Received 6L of fluid resuscitation and IV solucortef 100mg x1 bolus in ED for possible adrenal insuffiency. AM cortisol was found to be elevated. IV solucortef was stopped after 1 day. TSH and free t4 were normal. Oxygen demand increased from 2L to 4L now back to 2L. Respiratory secretions have increased. Cultures growing klebsiella and yeast. Patient continues to spike intermittent fevers. Tmax 103.5 -s/p 20mg IV lasix x2 yesterday -cont scopolamine patch trial to decrease secretions. cont suctioning prn. -Continue Unasyn 3 g every 8 hours as klebsiella sensitive to unasyn -Ct follow sputum cultures/blood cultures -ct to keep patient NPO, unless family decides otherwise -BP currently stable, as per family's request, no pressors at this time. -Ct aspiration precautions. -cont trc/nebs #Poor prognosis -Family is opposed to the patient having a feeding tube as they do not believe equal at his quality of life. -Palliative consult -Family wishes to reconvene after 48 hours to discuss goals of care after evaluating response to current therapy and discussing with the palliative care service. #Hyperkalemia K of likely secondary to Lasix administration yesterday -Active potassium repletion 3 rounds of IV KCL 10 mEQ as per floor protocol, will probably need more repletion -BEP @ 3pm -Hold off further diuretic therapy for now. #Unwtinessed fall Head and cervical neck CT revealed no acute intracranial findings, no fracture or or malalignment. There was multilevel degenerative changes throughout. -cont to monitor #Hypernatremia-reolved Switched to d51/2NS from d5w for mild hypernatremia. Hypernatreamia most likely 2/2 from intiial fluid resustcitaion with NS. -cont d51/2 NS -cont to monitor #Renal stone Ct found Nonobstructing left upper pole renal calculus. -f/u otupatient #DNR/DNI/nothing by mouth for now/DVT prophylaxis subcutaneous heparin Problem List: 1. Aspiration pneumonia Pain Ratin Pain Location: n.a Pain Goal: Remain pain free Pain Plan: prn Tomorrow's Labs & Rationales: cbc? Candelaria Henderson MD 01/18/18 1241: Attending MD Review Statement Attending Statement Attending MD Statement: examined this patient, discuss w/resident/PA/SHELL MOLDER, agreed w/resident/PA/SHELL MOLDER, discussed with family, reviewed EMR data (avail), discussed with nursing, discussed with case mgmt, amended to note Attending Assessment/Plan: Patient seen and examined. Medical records reviewed. Discussed in detail with daughter at the bedside. He is very lethargic. Patient was restarted that yesterday according to the family's wishes. Family is aware of the risk of aspiration. He wants him to eat in order to enjoy the simple comfort. Patient however is too lethargic to have any reasonable oral intake. He continues to have congested breath sounds requiring suctioning on occasion. He is afebrile. Blood pressure is stable. On examination he is very lethargic. Heart sounds are regular. Diminished breath sounds bilaterally with congested breath sounds. Abdomen soft and nontender. No peripheral edema. Laboratory data shows Hypokalemia with potassium of 2.7. Recommendations: -Family is aware of patient's extremely poor prognosis. They are aware that even if he recovers from this current episode of pneumonia he has significant underlying dysphagia that will not improve and will only likely end up in his current state again at some point in the future. Family is opposed to the patient having a feeding tube as they do not believe equal at his quality of life. -Palliative care consultation -Continue current antibiotic regimen. Hold off further diuretic therapy for now. Supplement potassium intravenously. -Family wishes to reconvene after 48 hours to discuss goals of care after evaluating response to current therapy and discussing with the palliative care service. service.
[2018-01-18 09:16] LABS: ABSOLUTE BASOPHIL COUNT 0 /CUMM (0.0-0.2); ABSOLUTE EOSINOPHIL COUNT 0 /CUMM (0.0-0.7); ABSOLUTE GRANULOCYTE CT 4.8 /CUMM (1.4-6.5); ABSOLUTE LYMPH COUNT 0.5 /CUMM (1.2-3.4); ABSOLUTE MONOCYTE COUNT 0.3 /CUMM (0.10-0.60); BASOPHIL % 0.1 % (0.0-2.0); EOSINOPHIL % 0 % (0-5); GRANULOCYTE % 86.8 % (42.2-75.2); MEAN CORPUSCULAR HGB 31.5 PG (27.0-31.0); MEAN CORPUSCULAR HGB CONC 33.7 G/DL (33.0-37.0); MEAN CORPUSCULAR VOLUME 93.3 FL (80.0-94.0); MEAN PLATELET VOLUME 8.9 FL (7.4-10.4); PLATELET COUNT 132 /CUMM (130-400); RED BLOOD CELL CT 3.88 /CUMM (4.70-6.10); WHITE BLOOD CELL COUNT 5.5 /CUMM (4.8-10.8)
[2018-01-18 09:32] LABS: HEMATOCRIT 36.3 % (42-52)
--- NOTE | 2018-01-18 13:07 | Cons- Palliative Care ---
General Information and HPI Consulting Request Date of Consult: 01/18/18 Requested By: Deepak BUSH,Benjamin Estes Reason for Consult: non-pain symptom mgmt, care/transition planning, eval for hospice care Source family, old records Exam Limitations unable to give history Associated Symptoms: dysphagia History of Present Illness: 82M admitted to [facility] from [facility] with diagnosis of aspiration pneumonia. During this hospitalization, he has required treatment in ICU. 60 minute family meeting held with patient's spouse, daughter who share that patient has been experiencing dysphagia for several years. He previously resided at home under the care of his who for several years was able to manage patient's care in the setting of worsening dysphagia and dementia. He has recently been experiencing recurrent episodes of aspiration pneumonia despite aggressive efforts to avoid aspiration. Spouse share that patient's quality of life is poor at this point and patient expresses dissatisfaction with his current dietary intake. She states that patient would not want the current level of care he is receiving. To that end we discussed options to transition toward a comfort -prioritized level of care. Allergies/Medications Allergies: Coded Allergies: acetaminophen (Mild, RASH 11/30/17) Home Med List: Aspirin (Aspirin*) 81 MG TAB.CHEW 1 TAB PO DAILY HEART HEALTH (Reported) Cyanocobalamin (Vitamin B-12) 1,000 MCG TABLET 1 TAB PO DAILY SUPPLEMENT ( Reported) Escitalopram Oxalate (Lexapro) 5 MG TABLET 1 TAB PO DAILY DEPRESSION Gabapentin 100 MG CAPSULE 1 CAP PO Q8 Anxiety off label use Guaifenesin (Mucinex) 600 MG TAB.ER.12H 1 TAB PO BID MUCOUS Simvastatin (Simvastatin*) 40 MG TABLET 1 TAB PO QAM CHOLESTEROL (Reported) Current Medications: Current Medications Sig/Mckenzie Start time Last Medication Dose Route Stop Time Status Admin Albuterol Sulfate 3 ML Q4P PRN 01/15 1130 AC 01/16 INH 1352 Ampicillin Sodium/ 3,000 MG Q6H 01/16 0800 AC 01/18 Sulbactam Sodium IV 1521 Sodium Chloride 100 ML Aspirin 81 MG DAILY 01/15 0900 AC 01/16 PO 1138 Atorvastatin Calcium 40 MG 1700 01/16 1700 AC PO Cyanocobalamin 1,000 MCG DAILY 01/16 1137 AC 01/16 PO 1348 Dextrose/Sodium 1,000 ML Q20H 01/16 0930 AC 01/18 Chloride IV 1711 Epinephrine 0.5 MG EVERY 5 MIN PRN 01/17 1545 AC IM Escitalopram Oxalate 5 MG DAILY 01/15 0900 AC 01/16 PO 1138 Gabapentin 100 MG Q8 01/16 1145 AC 01/16 PO 1138 Heparin Sodium 5,000 UNIT Q8 01/15 0600 AC 01/18 (Porcine) SC 1518 Pantoprazole Sodium 40 MG DAILY 01/16 1603 AC 01/18 IV 0835 Potassium Chloride 10 MEQ ONCE ONE 01/18 1815 DC 01/18 IV 01/18 181 2017 Potassium Chloride 10 MEQ .STK-MED ONE 01/18 1539 DC IV 01/18 1540 Potassium Chloride 10 MEQ Q1H 01/18 1130 DC 01/18 IV 01/18 1331 1349 Potassium Chloride 20 MEQ Q1H 01/18 1015 DC IV 01/18 1116 Scopolamine HBr 1 PAT ONE ONE 01/17 2345 DC 01/18 TOP 01/17 2346 0037 Review of Systems Review of Systems: unable to provide ROS Past History Medical History Neurological: dementia EENT: NONE Cardiovascular: hyperlipidemia Respiratory: bronchitis, ASPIRATION PNEUMONIA Gastrointestinal: DYSPHAGIA Hepatic: NONE Renal: nephrolithiasis Musculoskeletal: osteoarthritis, arthritis of neck Psychiatric: NONE Endocrine: NONE Blood Disorders: NONE Cancer(s): NONE TRACK ANNOUNCER/Reproductive: NONE Surgical History Surgical History: Right inguinal area surgery Family History Relations & Conditions If Any SISTER Relation not specified for: FH: HTN (hypertension) Psychosocial History Where Do You Live? Custodial Facility Services at Home: None Primary Language: Mongolian Karnofsky Performance Scale: 20 Living Will? yes Power of Delivery And Mail Sorter/HCP? yes Name of POA/HCP: spouse Functional Ability ADLs Needs Assist: dressing, eating, toileting, bathing. Ambulation: walker IADLs Needs Assist: shopping, housework, finances, food prep, telephone, transportation, medication admin. Employment History Employment: Retired Profession/Employer: [employer] worker Retired? yes Exam & Diagnostic Data Last 24 Hrs of Vitals/I&Os: Vital Signs Date Time Temp Pulse Resp B/P B/P Pulse O2 O2 Flow FiO2 Mean Ox Delivery Rate 01/18 2141 98.5 60 20 124/70 94 01/18 1447 98.3 97 22 128/76 97 01/18 1114 92 Nasal 2.0L Cannula 01/18 0800 Nasal 2.0L Cannula 01/18 0704 99.2 82 20 122/70 94 01/18 0225 92 Nasal 2.0L Cannula 01/18 0000 Nasal 2.0L Cannula Intake & Output 01/18 1600 01/18 0800 01/18 0000 Intake Total 600 500 200 Output Total 1400 900 Balance 600 -900 -700 Intake, IV 600 500 200 Output, Urine 1400 900 Patient 172 lb 173 lb Weight Weight Bed scale Measurement Method Physical Exam: elderly male in bed, NAD Lungs - (B) rhonchi CV - RRR, +S1, S2 Abd - soft Extr - no C/C/E Neuro - confused Diagnostic Data Lab/Micro/Pathology Results: Laboratory Tests 01/18/18 1529: Anion Gap 9, Estimated GFR > 60, BUN/Creatinine Ratio 33.8 H 01/18/18 0735: Anion Gap 10, Estimated GFR > 60, BUN/Creatinine Ratio 35.7 H, Magnesium 1.9, CBC w Diff MAN DIFF ORDERED, RBC 3.88 L, MCV 93.3, MCH 31.5 H, MCHC 33.7, RDW 14.0, MPV 8.9, Gran % 86.8 H, Lymphocytes % 8.2 L, Monocytes % 4.9, Eosinophils % 0, Basophils % 0.1, Absolute Granulocytes 4.8, Segmented Neutrophils 80 H, Band Neutrophils 7 H, Absolute Lymphocytes 0.5 L, Lymphocytes 8 L, Monocytes 5, Absolute Monocytes 0.3, Absolute Eosinophils 0, Absolute Basophils 0, Platelet Estimate VERIFIED BY SMEAR, Normocytic RBCs VERIFIED, Normochromic RBCs VERIFIED Assessment/Plan Assessment 82M w/ advanced dementia, now w/ recurrent aspiration pneumonia in setting of dysphagia Patient's Condition: serious Prognosis: poor Is Patient Decisional? no Case Discussed With: family, attending, case management Goals of Care: limited medical treatment Treatment Preferences: 1. Continue with present intervention in attempt to improve overall condition 2. Avoid escalation of care at this point - once current course of treatment is completed, consider avoiding additional antibiotic therapy. If condition deteriorates due to current illness, or new problem develops, consider transition to comfort-only care 3. Consider discontinuation of non symptom-relieving medications or medications not being utilized for current illness - eg. d/c ASA, Atorvastatin, B12. These medications have essentially no value to patient at this time as he has a 50% 6- month mortality 4. May continue with scopolamine if its benefit exceeds its adverse effects or risks - please try to attend to keeping mouth moist for comfort 5. Consider addition of low-dose morphine (20mg/cc - 0.25 cc SL q2h PRN dyspnea) . If patient develops anxiety, Ativan Intensol (2mg/cc - 0.25cc SL q4h PRN may be effective) 6. Consider hospice consultation, especially if pt improves to level of returning to [place]. 7. Ongoing family support 8. Avoid over-stimulation. Avoid PO intake at this time, unless desired by patient. If so, limit to food items like ice-cream, puddings, et al. Spoon feed small amounts at a time only - for pleasure. 8. Call with any questions you may have. Consult Acknowledgment - Thank you for your consult request.
[2018-01-18 14:47] VITALS: BP 128/76
[2018-01-18 21:41] VITALS: BP 124/70
[2018-01-19 05:23] VITALS: BP 118/58
[2018-01-19 08:33] LABS: ABSOLUTE BASOPHIL COUNT 0 /CUMM (0.0-0.2); ABSOLUTE EOSINOPHIL COUNT 0 /CUMM (0.0-0.7); ABSOLUTE GRANULOCYTE CT 3.1 /CUMM (1.4-6.5); ABSOLUTE LYMPH COUNT 0.6 /CUMM (1.2-3.4); ABSOLUTE MONOCYTE COUNT 0.4 /CUMM (0.10-0.60); BASOPHIL % 0.3 % (0.0-2.0); EOSINOPHIL % 0.4 % (0-5); GRANULOCYTE % 74.8 % (42.2-75.2); HEMATOCRIT 31.8 % (42-52); MEAN CORPUSCULAR HGB 30.9 PG (27.0-31.0); MEAN CORPUSCULAR HGB CONC 33.6 G/DL (33.0-37.0); MEAN PLATELET VOLUME 8.6 FL (7.4-10.4); PLATELET COUNT 116 /CUMM (130-400); RBC DISTRIBUTION WIDTH 14.1 % (11.5-14.5); RED BLOOD CELL CT 3.45 /CUMM (4.70-6.10); WHITE BLOOD CELL COUNT 4.1 /CUMM (4.8-10.8)
--- NOTE | 2018-01-19 09:16 | PN- Housestaff ---
Luis M BUSH,[facility] 01/19/18 0916: Subjective Follow-up For: Aspiration pneumonia Subjective: Seen and examined. Resting comfortably. Patient is refusing to dissection despite having some congested breath sounds. looks improved than yesterday. He is too weak to cough up phlegm Review of Systems Constitutional: Reports: see HPI. Objective Last 24 Hrs of Vital Signs/I&O Vital Signs Date Time Temp Pulse Resp B/P B/P Pulse O2 O2 Flow FiO2 Mean Ox Delivery Rate 01/19 1031 96 Nasal 2.0L Cannula 01/19 0800 Nasal 2.0L Cannula 01/19 0523 98.5 85 118/58 01/19 0353 95 Nasal 2.0L Cannula 01/19 0000 Room Air 01/18 2141 98.5 60 20 124/70 94 01/18 1447 98.3 97 22 128/76 97 Intake & Output 01/19 1600 01/19 0800 01/19 0000 Intake Total 200 Output Total 250 300 Balance -250 -100 Intake, IV 200 Output, Urine 250 300 Patient 158 lb Weight Physical Exam General Appearance: Alert Cardiovascular: Normal S1, Normal S2 Lungs: congested breath sounds Abdomen: Normal Bowel Sounds, Soft, No Tenderness Neurological: Normal Speech Current Medications: Current Medications Sig/Mckenzie Start time Last Medication Dose Route Stop Time Status Admin Albuterol Sulfate 3 ML Q4P PRN 01/15 1130 AC 01/16 INH 1352 Ampicillin Sodium/ 3,000 MG Q6H 01/16 0800 AC 01/19 Sulbactam Sodium IV 0749 Sodium Chloride 100 ML Aspirin 81 MG DAILY 01/15 0900 AC 01/16 PO 1138 Atorvastatin Calcium 40 MG 1700 01/16 1700 AC PO Cyanocobalamin 1,000 MCG DAILY 01/16 1137 AC 01/16 PO 1348 Dextrose/Sodium 1,000 ML Q20H 01/16 0930 AC 01/18 Chloride IV 1711 Epinephrine 0.5 MG EVERY 5 MIN PRN 01/17 1545 AC IM Escitalopram Oxalate 5 MG DAILY 01/15 0900 AC 01/16 PO 1138 Gabapentin 100 MG Q8 01/16 1145 AC 01/16 PO 1138 Glycopyrrolate 200 MCG ONE ONE 01/19 0845 DC 01/19 IV 01/19 0846 1027 Heparin Sodium 5,000 UNIT Q8 01/15 0600 AC 01/19 (Porcine) SC 0536 Pantoprazole Sodium 40 MG DAILY 01/16 1603 AC 01/19 IV 0749 Potassium Chloride 10 MEQ ONCE ONE 01/18 1815 DC 01/18 IV 01/18 Potassium Chloride 10 MEQ .STK-MED ONE 01/18 1539 DC IV 01/18 1540 Last 24 Hrs of Lab/Harley Results Last 24 Hrs of Labs/Mics: Laboratory Tests 01/19/18 0735: Anion Gap 8, Estimated GFR > 60, BUN/Creatinine Ratio 47.1 H, Magnesium 1.9, Total Bilirubin 0.7, Direct Bilirubin 0.2, AST 74 H, ALT 37, Alkaline Phosphatase 46, Total Protein 4.8 L, Albumin 2.3 L, CBC w Diff NO MAN DIFF REQ , RBC 3.45 L, MCV 92.0, MCH 30.9, MCHC 33.6, RDW 14.1, MPV 8.6, Gran % 74.8, Lymphocytes % 14.6 L, Monocytes % 9.9 H, Eosinophils % 0.4, Basophils % 0.3, Absolute Granulocytes 3.1, Absolute Lymphocytes 0.6 L, Absolute Monocytes 0.4, Absolute Eosinophils 0, Absolute Basophils 0 01/18/18 1529: Anion Gap 9, Estimated GFR > 60, BUN/Creatinine Ratio 33.8 H Assessment/Plan Assessment: Mr Gerardo an 82-year-old man with past medical history of Alzheimer's dementia, hyperlipidemia, history of dysphagia with failed swallow evaluation in the past, currently on pured diet was brought in from [facility] with chief complain of temperature of 100.8 along with a mechanical fall (unwitnessed) without any loss of consciousness on the day of admission and one episode of vomiting. Upon arrival at the emergency department he was found to be hypoxemic with saturations and 89%. His admission vitals were temperature of 102.6, pulse rate of 109, respiration of 20, blood pressure of 105/58, he wonders 95% saturating on room air. He was found to have a low white count of 4.2, rest of the electrolytes and kidney functions were normal, liver function tests were normal, creatinine kinase was elevated to 256. Head CT/cervical spine did not show any acute intracranial findings. CT abdominal/pelvis and chest revealed groundglass opacities in both lungs, nonobstructing left upper lobe renal calculus and degenerative changes throughout the spine and bilateral hip. Strep pneumonia and legionella negative Problem List alongwith Assessment and plan : #Acute hypoxic respiratory failure most likely 2/2 aspiration pneumonia sepsis Initial blood pressure as low as 60/25. Received 6L of fluid resuscitation and IV solucortef 100mg x1 bolus in ED for possible adrenal insuffiency. AM cortisol was found to be elevated. IV solucortef was stopped after 1 day. TSH and free t4 were normal. Oxygen demand increased from 2L to 4L now back to 2L. Respiratory secretions have increased. Cultures growing klebsiella and yeast. Patient continues to spike intermittent fevers. Tmax 103.5 -cont scopolamine patch trial to decrease secretions. -Rubinol IV and patient is refusing suction -Continue Unasyn 3 g every 8 hours as klebsiella sensitive to unasyn to complete 7 day course -Ct follow sputum cultures/blood cultures -ct to keep patient NPO, unless family decides otherwise -BP currently stable, as per family's request, no pressors at this time. -Ct aspiration precautions. -cont trc/nebs #Poor prognosis -Family is opposed to the patient having a feeding tube as they do not believe equal at his quality of life. -Palliative consult recommendations appreciated. He has a 50% 6-month mortality -Family wishes to reconvene after 48 hours to discuss goals of care after evaluating response to current therapy and discussing with the palliative care service. -Patient's daughter is moving towards hospice and has a hospice evaluation with the nurse in the evening #Hypokalemia Patient was hypokalemic yesterday likely secondary to Lasix administration -Continue to monitor and replete #Unwtinessed fall Head and cervical neck CT revealed no acute intracranial findings, no fracture or or malalignment. There was multilevel degenerative changes throughout. -cont to monitor #Hypernatremia Switched to d51/2NS from d5w for mild hypernatremia. Hypernatreamia most likely 2/2 from intiial fluid resustcitaion with NS. -cont d51/2 NS -cont to monitor #Renal stone Ct found Nonobstructing left upper pole renal calculus. -f/u otupatient #DNR/DNI/nothing by mouth for now/DVT prophylaxis subcutaneous heparin Problem List: 1. Aspiration pneumonia Pain Ratin Pain Location: n/a Pain Goal: Pain 4 or less Pain Plan: prn Tomorrow's Labs & Rationales: none Beatriz BUSH,Candelaria 01/19/18 1323: Attending MD Review Statement Attending Statement Attending MD Statement: examined this patient, discuss w/resident/PA/SPONGE FISHERMAN, agreed w/resident/PA/SPONGE FISHERMAN, reviewed EMR data (avail), discussed with nursing, discussed with case mgmt, amended to note Attending Assessment/Plan: Patient seen and examined. Nursing staff reports that patient is refusing to be suction despite largely unable congested breath sounds. Patient is also asking not to use oxygen supplementation stating that he feels better without the nasal cannula in place. This morning he certainly looks a little brighter than he did yesterday however he remains extremely lethargic. He is too weak to cough up phlegm in his upper airway. His two-week to attempt oral intake. Evaluation by the palliative care service appreciated I had an extensive conversation with the patient's daughtersn Samanta and Janelle as well as his . they are aware of the patient's guarded prognosis. They are aware that regardless of his improvement is dysphagia remain unchanged, likely resulting another episode of aspiration and pneumonia. He acknowledged that his functional status has been deteriorating even prior to hospitalization. Patient 's is agreeable to proceed with hospice care. His daughter does however want to discuss further with hospice care service. Recommendations: - Continue antibiotic course. Complete 7 days of therapy. - Follow-up with the family after their conversation with the hospice care service. - Follow recommendations of the palliative care service.
[2018-01-19 14:45] VITALS: BP 120/70
[2018-01-19 21:27] VITALS: BP 116/64
[2018-01-20 06:06] VITALS: BP 100/60
--- NOTE | 2018-01-20 08:52 | PN- Housestaff ---
Luis M BUSH,[facility] 01/20/18 0852: Subjective Follow-up For: Aspiration pneumonia Subjective: Seen and examined. He works better than yesterday today. He is talking and joking around prognosis remains poor. Patient's CODE STATUS will be changed to CARDIOLOGY RN. Patient's family is moving towards hospice but cannot seem to make up her mind yet Review of Systems Constitutional: Reports: see HPI. Objective Last 24 Hrs of Vital Signs/I&O Vital Signs Date Time Temp Pulse Resp B/P B/P Pulse O2 O2 Flow FiO2 Mean Ox Delivery Rate 01/20 1346 98.9 64 20 134/79 92 Nasal 2.0L Cannula 01/20 0800 Nasal 2.0L Cannula 01/20 606 98.4 64 22 100/60 93 Nasal 2.0L Cannula 01/19 2127 97.8 65 20 116/64 92 01/19 2056 Room Air Intake & Output 01/20 1600 01/20 0800 01/20 0000 Intake Total 400 400 400 Output Total 300 240 300 Balance 100 160 100 Intake, IV 400 400 400 Output, Urine 300 240 300 Physical Exam General Appearance: Alert Cardiovascular: Normal S1, Normal S2 Lungs: ronchi Abdomen: Normal Bowel Sounds, Soft, No Tenderness Current Medications: Current Medications Sig/Mckenzie Start time Last Medication Dose Route Stop Time Status Admin Albuterol Sulfate 3 ML Q4P PRN 01/15 1130 DC 01/16 INH 1352 Ampicillin Sodium/ 3,000 MG Q6H 01/16 0800 AC 01/20 Sulbactam Sodium IV 01/22 0100 1413 Sodium Chloride 100 ML Aspirin 81 MG DAILY 01/15 0900 DC 01/16 PO 1138 Atorvastatin Calcium 40 MG 1700 01/16 1700 DC PO Cyanocobalamin 1,000 MCG DAILY 01/16 1137 DC 01/16 PO 1348 Dextrose/Sodium 1,000 ML Q20H 01/16 0930 AC 01/19 Chloride IV 1654 Epinephrine 0.5 MG EVERY 5 MIN PRN 01/17 1545 DC IM Escitalopram Oxalate 5 MG DAILY 01/15 0900 DC 01/16 PO 1138 Gabapentin 100 MG Q8 01/16 1145 DC 01/16 PO 1138 Glycopyrrolate 200 MCG Q8P PRN 01/19 2200 AC 01/20 IV 0516 Heparin Sodium 5,000 UNIT Q8 01/15 0600 DC 01/19 (Porcine) SC 1419 Lorazepam 0.5 MG Q8P PRN 01/20 1345 IV Pantoprazole Sodium 40 MG DAILY 01/16 1603 DC 01/20 IV 0816 Patient Medication 1 ED ONE ONE 01/20 1545 NC Teaching ED 01/20 1546 Scopolamine HBr 1 PAT Q72H 01/19 1715 AC 01/19 TOP 1812 Assessment/Plan Assessment: Mr Gerardo an 82-year-old man with past medical history of Alzheimer's dementia, hyperlipidemia, history of dysphagia with failed swallow evaluation in the past, currently on pured diet was brought in from [facility] with chief complain of temperature of 100.8 along with a mechanical fall (unwitnessed) without any loss of consciousness on the day of admission and one episode of vomiting. Upon arrival at the emergency department he was found to be hypoxemic with saturations and 89%. His admission vitals were temperature of 102.6, pulse rate of 109, respiration of 20, blood pressure of 105/58, he wonders 95% saturating on room air. He was found to have a low white count of 4.2, rest of the electrolytes and kidney functions were normal, liver function tests were normal, creatinine kinase was elevated to 256. Head CT/cervical spine did not show any acute intracranial findings. CT abdominal/pelvis and chest revealed groundglass opacities in both lungs, nonobstructing left upper lobe renal calculus and degenerative changes throughout the spine and bilateral hip. Strep pneumonia and legionella negative. He was evaluated for Acute hypoxic respiratory failure most likely 2/2 aspiration pneumonia sepsis The patient's status is going to be changed to comfort care. He is going to complete course of antibiotic regimen which will be finished tomorrow. He is currently nothing by mouth there is consideration of comfort food. No escalation of care. No central line. Patient is refusing suction. Because it' s traumatic for him. Continue scopolamine, IV rubinol. We are also going to continue intravenous maintenance fluids on the patient's family request. His prognosis remains grave, with ongoing discussion for hospice care. Problem List: 1. Aspiration pneumonia 2. Sepsis Pain Ratin Pain Location: n/a Pain Goal: Remain pain free Pain Plan: prn Tomorrow's Labs & Rationales: none Candelaria Henderson MD 01/20/18 1145: Attending MD Review Statement Attending Statement Attending MD Statement: examined this patient, discuss w/resident/PA/BUSINESS DEVELOPMENT ASSISTANT, agreed w/resident/PA/BUSINESS DEVELOPMENT ASSISTANT, discussed with family, reviewed EMR data (avail), discussed with nursing, discussed with case mgmt, amended to note Attending Assessment/Plan: Patient seen and examined. He appears a little more alert today. He was a little jovial this morning. Family is present at the bedside. They are excited about his current mental status. They however to appreciate that he is still too lethargic and due to his underlying dysphagia unable to safely tolerate oral intake. Family met with the hospice service yesterday. Patient's is agreeable with proceeding with hospice care. Some family members remain reluctant. They will be meeting with the hospice service today. Will follow up afterwards. In the meanwhile recommend clinical status of comfort measures only. Complete current course of antibiotic therapy at this point his pneumonia appears to have resolved. He is afebrile and hemodynamically stable. No leukocytosis on labs yesterday.
[2018-01-20 13:46] VITALS: BP 134/79
--- NOTE | 2018-01-20 14:43 | PN- Palliative Care ---
Subjective Subjective: improved over the past several days. Now awake. Asking for water, food. Still w/ coughing with PO intake. Family present and in agreement with above observations. Review of Systems Constitutional: Reports: no symptoms. Objective Last 24 Hrs of Vital Signs/I&O Vital Signs Date Time Temp Pulse Resp B/P B/P Pulse O2 O2 Flow FiO2 Mean Ox Delivery Rate 01/20 1346 98.9 64 20 134/79 92 Nasal 2.0L Cannula 01/20 08 Nasal 2.0L Cannula 01/20 06 98.4 64 22 100/60 93 Nasal 2.0L Cannula 01/19 2127 97.8 65 20 116/64 92 01/19 2056 Room Air 01/19 1650 92 Room Air 01/19 1445 99.1 85 19 120/70 93 Intake & Output 01/20 1600 01/20 0800 01/20 0000 Intake Total 400 400 Output Total 300 240 300 Balance -300 160 100 Intake, IV 400 400 Output, Urine 300 240 300 Physical Exam: elderly male in bed, NAD awake, alert, not oriented Lungs - rhonchi CV - RRR Abd - soft Extr - no edema Neuro - moves all 4 Current Medications Current Medications: Current Medications Sig/Mckenzie Start time Last Medication Dose Route Stop Time Status Admin Albuterol Sulfate 3 ML Q4P PRN 01/15 1130 DC 01/16 INH 1352 Ampicillin Sodium/ 3,000 MG Q6H 01/16 0800 AC 01/20 Sulbactam Sodium IV 01/22 0100 1413 Sodium Chloride 100 ML Aspirin 81 MG DAILY 01/15 0900 DC 01/16 PO 1138 Atorvastatin Calcium 40 MG 1700 01/16 1700 DC PO Cyanocobalamin 1,000 MCG DAILY 01/16 1137 DC 01/16 PO 1348 Dextrose/Sodium 1,000 ML Q20H 01/16 0930 AC 01/19 Chloride IV 1654 Epinephrine 0.5 MG EVERY 5 MIN PRN 01/17 1545 DC IM Escitalopram Oxalate 5 MG DAILY 01/15 09 DC 01/16 PO 1138 Gabapentin 100 MG Q8 01/16 1145 DC 01/16 PO 1138 Glycopyrrolate 200 MCG Q8P PRN 01/19 2200 AC 01/20 IV 0516 Heparin Sodium 5,000 UNIT Q8 01/15 0600 DC 01/19 (Porcine) SC 1419 Lorazepam 0.5 MG Q8P PRN 01/20 1345 AC IV Pantoprazole Sodium 40 MG DAILY 01/16 1603 DC 01/20 IV 0816 Potassium Chloride 10 MEQ Q1H 01/19 1430 DC 01/19 IV 01/19 1631 1813 Scopolamine HBr 1 PAT Q72H 01/19 1715 AC 01/19 TOP 1812 Assessment/Plan Assessment 82M w/ dysphagia, aspiration pneumonia, dementia Patient's Condition: stable Prognosis: fair Is Patient Decisional? no Case Discussed With: patient, family, nurse(s) Goals of Care: rehabilitative, limited medical treatment Treatment Preferences: New Recommendations: 1. Consider discontinuation of scopolamine patch as patient is now awake, and attempting PO intake. If his symptoms of dysphagia for oral secretions worsens, then it is reasonable to resume patch 2. Consider the addtion of guiafenesin to thin secretions - this may help in secretion managment. 3. It is reasonable to provide free water as desired/tolerated according to [place] Free Water Protocol. Unchanged Recommendations: 1. Continue with present intervention in attempt to improve overall condition 2. Avoid escalation of care at this point - once current course of treatment is completed, consider avoiding additional antibiotic therapy. If condition deteriorates due to current illness, or new problem develops, consider transition to comfort-only care 3. Consider discontinuation of non symptom-relieving medications or medications not being utilized for current illness - eg. d/c ASA, Atorvastatin, B12. These medications have essentially no value to patient at this time as he has a 50% 6- month mortality 5. Consider addition of low-dose morphine (20mg/cc - 0.25 cc SL q2h PRN dyspnea) . If patient develops anxiety, Ativan Intensol (2mg/cc - 0.25cc SL q4h PRN may be effective) 6. Consider hospice consultation, especially if pt improves [facility]. 7. Ongoing family support 8. Avoid over-stimulation. Avoid PO intake at this time, unless desired by patient. If so, limit to food items like ice-cream, puddings, et al. Spoon feed small amounts at a time only - for pleasure. 8. Call with any questions you may have.
--- NOTE | 2018-01-20 15:44 | PN- Palliative Care Social Wrk ---
Social Work Assessment/Plan Social Work Assessment/Plan: Palliative Care Consult referral received earlier this week. This patient is an 82 year old man, admitted to the hospital on 01/15/18 with Pnuemonia. Mr. Gerardo is a resident at [facility] after a few hospitalizations earlier this year. For a short time, he was a resident at a local assited living facility. Patient has a , and 2 daughters, Janelle and Samanta. and daughter Samanta at time of visit today. Patient known to have progressive dementia with worsening decline over the past few months. Patient unable to participate in meaningful interview. Today, his family reports he is a bit more alert and responsive. Patient still with copius secretions. Family considering transition to Hospice, but at this time are choosing to hold on decison due to improved level of alertness. Family in agreement with no PEG tube at this time. and daughters in agreeemtn with plan; emotional support provided.
[2018-01-20 22:00] VITALS: BP 134/66
[2018-01-21 06:20] VITALS: BP 154/80
--- NOTE | 2018-01-21 08:09 | PN- Housestaff ---
Luis M BUSH,[place] 01/21/18 0809: Subjective Follow-up For: Aspiration pneumonia Subjective: Seen and examined and seems very agitated Review of Systems Constitutional: Reports: see HPI. Objective Last 24 Hrs of Vital Signs/I&O Vital Signs Date Time Temp Pulse Resp B/P B/P Pulse O2 O2 Flow FiO2 Mean Ox Delivery Rate 01/21 0800 Nasal 2.0L Cannula 01/21 0620 97.6 91 22 154/80 91 Nasal 2.0L Cannula 01/21 0000 Nasal 2.0L Cannula 01/20 2200 97.8 69 18 134/66 96 Intake & Output 01/21 1600 01/21 0800 01/21 0000 Intake Total 400 250 Output Total 325 Balance 75 250 Intake, IV 400 250 Number 0 Bowel Movements Output, Urine 325 Physical Exam General Appearance: Mild Distress Cardiovascular: Normal S1, Normal S2 Lungs: ronchi Current Medications: Current Medications Sig/Mckenzie Start time Last Medication Dose Route Stop Time Status Admin Ampicillin Sodium/ 3,000 MG Q6H 01/16 0800 DCD 01/21 Sulbactam Sodium IV 01/22 0100 0816 Sodium Chloride 100 ML Dextrose/Sodium 1,000 ML Q20H 01/16 0930 DCD / Chloride IV 0211 Glycopyrrolate 200 MCG Q8P PRN 01/19 2200 DCD 01/21 IV 0452 Lorazepam 0.5 MG ONCE ONE 01/21 1000 DC 06/02 IV / 1001 0953 Lorazepam 0.5 MG Q8P PRN 01/20 1345 DCD 01/21 IV 0455 Patient Medication 1 ED ONE ONE 01/20 1545 DC Teaching ED 01/20 1546 Scopolamine HBr 1 PAT Q72H 01/19 1715 DCD 01/19 TOP 1812 Assessment/Plan Assessment: Patient's family has decided to proceed with hospice. Patient will be discharged from our service and will be admitted under hospice service Problem List: 1. Aspiration pneumonia Pain Ratin Pain Location: n/a Pain Goal: Pain 4 or less Pain Plan: prn Tomorrow's Labs & Rationales: none Anibal Chamberlain MD 01/21/18 0945: Attending MD Review Statement Attending Statement Attending MD Statement: examined this patient, discuss w/resident/PA/DOUBLE SURFACE OPERATOR, agreed w/resident/PA/DOUBLE SURFACE OPERATOR, discussed with family, reviewed EMR data (avail), discussed with nursing, discussed with case mgmt, reviewed images, amended to note Attending Assessment/Plan: Anibal Busch M.D. have examined this patient, reviewed available EMR data, personally reviewed images, discussed with resident/PA/DOUBLE SURFACE OPERATOR, discussed management plan with housestaff and nursing staff, discussed managment plan all of healthcare providers, discussed management plan with patient and/or family, agreed with resident/PA/DOUBLE SURFACE OPERATOR. The past history and parts of the chart have been autopopulated. Impression 82 year old man * aspiration pneumonia * now on comfort care Plan -ativan prn -robinul -scopolamine -complete unasyn / -D51/2NS per family wishes comfort measures
--- NOTE | 2018-01-21 12:42 | PN- Att Addend ---
Attending Addendum Attending Brief Note Hospice admission note 82 year old man admitted initially for aspiration pneumonia. Mr. Gerardo is a resident at [facility] after a few hospitalizations earlier this year. Treated with fluids and iv antibiotics as deliniated in the notes. Patient was treated under comfort care measures. Decision today made by family that his level of care will now be changed to hospice. This was discussed with the family and hospice nurse. Hospice orders completed. See hospice orders for treatment plan.
== END 2018-01-21 12:48 | disposition hospice, home (50) | DRG 871 ==
LOC: ERH 22:09 → CRI 01-15 01:29 → 2NA 01-15 01:29 → ERHI 01-15 01:29 → CANRESERV 01-15 03:01 → ENRESERV 01-15 03:01 → EDBEDREQ 01-15 07:02 → ERHI 01-15 07:06 → ENRESERV 01-15 07:06 → ENTRNSPT 01-15 07:42 → EDTRNSPTSTS 01-15 07:47 → EDTRNSPT 01-15 07:47 → CRI 01-15 08:10 → CMPTRNSPT 01-15 08:20 → ENTRNSPT 01-17 18:46 → EDTRNSPT 01-17 19:34 → EDTRNSPTSTS 01-17 19:34 → 2NA 01-17 19:45 → CMPTRNSPT 01-17 19:51 → 2NA 01-17 21:15
PROVIDERS: Internal Medicine; Internal Medicine Endocrinology, Diabetes & Metabolism; Physician Assistant Medical
DX: A41.9 Sepsis, unspecified organism (principal); J69.0 Pneumonitis due to inhalation of food and vomit; J96.01 Acute respiratory failure with hypoxia; G93.41 Metabolic encephalopathy; J15.0 Pneumonia due to Klebsiella pneumoniae; E87.0 Hyperosmolality and hypernatremia; M62.82 Rhabdomyolysis; I95.9 Hypotension, unspecified; R13.10 Dysphagia, unspecified; W19.XXXA Unspecified fall, initial encounter; Z91.81 History of falling; E86.0 Dehydration; G30.9 Alzheimer's disease, unspecified; Z51.5 Encounter for palliative care; F02.80 Dementia in other diseases classified elsewhere, unspecified severity, without behavioral disturbance, psychotic disturbance, mood disturbance, and anxiety; B96.1 Klebsiella pneumoniae [K. pneumoniae] as the cause of diseases classified elsewhere; E87.6 Hypokalemia; N20.0 Calculus of kidney; Z88.6 Allergy status to analgesic agent; E78.5 Hyperlipidemia, unspecified; Z66 Do not resuscitate
CPT/HCPCS: 2NAP; CCU; 36592; 71045; 74176; 81001; 82436; 87040; 87070; 87071; 87086; 87449; 87450; 93005; 93010; 96361; 96374; 96375; 99291; J0131; J0171; J1200; J1644; J1720; J1885; J1940; J2060; J3490; J7040; J7042

== ENCOUNTER 2018-01-21 12:49 | Inpatient (IN) | payer OTHER ==
--- NOTE | 2018-01-21 13:33 | PN- Att Addend ---
Attending Addendum Attending Brief Note Hospice admission note 82 year old man admitted initially for aspiration pneumonia. Mr. Gerardo is a resident at [facility] after a few hospitalizations earlier this year. Treated with fluids and iv antibiotics as deliniated in the notes. Patient was treated under comfort care measures. Decision today made by family that his level of care will now be changed to hospice. This was discussed with the family and hospice nurse. Hospice orders completed. See hospice orders for treatment plan.
[2018-01-21 15:13] VITALS: BP 110/60
[2018-01-22 06:20] VITALS: BP 140/68
--- NOTE | 2018-01-22 09:51 | PN- Hospice ---
Subjective Subjective: awake, offers no complaints has eyes closed secretions are audible some intermittent cough feels that temperature is comfortable no pain is reported able to voice appropriately yes/no questions Objective Last 24 Hrs of Vital Signs/I&O Vital Signs Date Time Temp Pulse Resp B/P B/P Pulse O2 O2 Flow FiO2 Mean Ox Delivery Rate 01/23 620 97.2 62 20 140/68 92 Nasal 2.0L Cannula 01/22 0000 Nasal 2.0L Cannula 01/22 1600 Nasal 2.0L Cannula 01/21 1513 97.6 86 24 110/60 91 Intake & Output 01/22 1600 01/22 0800 01/22 0000 Intake Total 0 0 Output Total 100 100 Balance -100 -100 Intake, Oral 0 0 Number 0 Bowel Movements Output, Urine 100 100 Physical Exam: gen arousable, eyes closed head/neck - oxygen/nasal cannula cvs - s1, s2 lungs - anterior chest sounds reveal rhonchi abd -soft ext without edema, lotion has been applied Current Medications: Current Medications Sig/Mckenzie Start time Last Medication Dose Route Stop Time Status Admin Acetaminophen 650 MG Q4P PRN 01/21 1330 DC IL Artificial Tears 2 GTT Q2P PRN 01/21 1330 AC OU Bisacodyl 10 MG DAILY NEEDED PRN / 1330 AC IL Glycerin 2 SPRAY Q4P PRN 01/21 1330 AC PO Glycerin/Mineral Oil 1 DALTON Q8P PRN 01/21 1330 AC TOP Glycopyrrolate 400 MCG Q4P PRN 01/22 0945 UNVr IV Glycopyrrolate 200 MCG Q4P PRN / 1330 DC / IV 0922 Lorazepam 0.5 MG Q4 PRN 01/21 1330 AC IV Morphine Sulfate 2 MG Q2P PRN /02 1330 AC /03 IV 0934 Ondansetron HCl 4 MG Q6P PRN / 1530 AC / IV 1525 Scopolamine HBr 1 PAT Q72 01/24 0900 AC TOP Diagnostic Data Lab/Micro/Pathology Results: NONE Assessment/Plan Hospice Assessment/Recommendations: 82 year old man aspiration pneumonia now on hospice care comfort measures robinul increased to 400mcg q4h prn for secretions bowel regimen morphine prn ativan prn
[2018-01-22 22:32] VITALS: BP 135/68
[2018-01-23 06:20] VITALS: BP 136/70
--- NOTE | 2018-01-23 13:38 | PN- Att Addend ---
Attending Addendum Attending Brief Note Patient seen and examined. Resting comfortably not in acute distress at present. No new issues reported by nursing staff. Family reports he occasionally wants to eat and drink. Vital Signs Date Time Temp Pulse Resp B/P B/P Pulse O2 O2 Flow FiO2 Mean Ox Delivery Rate 01/23 0620 98.3 65 18 136/70 91 Room Air 01/22 2232 99.1 67 20 135/68 90 Room Air 01/22 1600 Nasal 2.0L Cannula General appearance: Not in any obvious distress. Lungs: Diminished breath sounds bilaterally. Heart sounds: S1-S2 regular Extremities: No pedal edema. Problems: 1. Aspiration pneumonia 2. Dysphagia 3. Acute hypoxic respiratory failure Plan: -Continue hospice care. -Okay to allow patient to occasionally have sips of water to enjoy the comfort of feeding. -Would avoid large volumes in order to avoid aspiration and distress associated with this. -Continue all other comfort measures
[2018-01-23 14:00] VITALS: BP 136/56
[2018-01-24 05:56] VITALS: BP 138/64
--- NOTE | 2018-01-24 13:12 | PN- Hospice ---
Subjective Subjective: Daughter at bedside. Pt. reports he is comfortable, denies difficulty with breathing. He appears comfortable but mildly tachypneic, able to respond yes/ no. Received morphine last yesterday and ativan once early am today. Robinul has been helpful for secretions. Review of Systems Constitutional: Reports: see HPI. Objective Last 24 Hrs of Vital Signs/I&O Vital Signs Date Time Temp Pulse Resp B/P B/P Pulse O2 O2 Flow FiO2 Mean Ox Delivery Rate 01/24 0556 97.9 68 20 138/64 94 Room Air 01/23 1400 97.5 95 22 136/56 92 Room Air Intake & Output 01/24 1600 01/24 0800 01/24 0000 Intake Total 60 60 Output Total 200 150 Balance -140 -90 Intake, Oral 60 60 Output, Urine 200 150 Physical Exam General Appearance: lethargic, ill-appearing, mildly tachypneic Head: atraumatic Respiratory: decreased breath sounds, RR-26 Cardiovascular: regular rate/rhythm Abdomen: soft, non-tender Extremities: bilat. LE mild edema and mottling Current Medications: Current Medications Sig/Mckenzie Start time Last Medication Dose Route Stop Time Status Admin Artificial Tears 2 GTT Q2P PRN 06/ 1330 AC OU Bisacodyl 10 MG DAILY NEEDED PRN / 1330 AC ID Glycerin 2 SPRAY Q4P PRN 06/ 1330 AC PO Glycerin/Mineral Oil 1 DALTON Q8P PRN 06/ 1330 AC TOP Glycopyrrolate 400 MCG Q4P PRN 06/ 0945 AC 01/24 IV 1025 Lorazepam 0.5 MG Q4 PRN 06/ 1330 AC 01/24 IV 0443 Morphine Sulfate 2 MG Q2P PRN 06/02 1330 AC 06/04 IV 1345 Ondansetron HCl 4 MG Q6P PRN 06/ 1530 AC 06/ IV 1205 Scopolamine HBr 1 PAT Q72 / 0900 01/24 TOP 1024 Assessment/Plan Hospice Assessment/Recommendations: 82 y.o. male with advanced dementia and dysphagia now with acute hypoxic respiratory failure secondary to aspiration pneumonia. Problem List: 1. Acute respiratory failure with hypoxia 2. Aspiration pneumonia 3. Dysphagia 4. Dementia
[2018-01-25 06:02] VITALS: BP 141/70
--- NOTE | 2018-01-25 13:27 | PN- Hospice ---
Subjective Subjective: Pt. is sleepy but verbally responsive. Denies pain or SOB, has occasional cough. Received Robinul and ativan x 1 past 24 hours, no morphine. He is taking sips at times. Review of Systems Constitutional: Reports: see HPI. Objective Last 24 Hrs of Vital Signs/I&O Vital Signs Date Time Temp Pulse Resp B/P B/P Pulse O2 O2 Flow FiO2 Mean Ox Delivery Rate 01/25 0602 97.6 70 20 141/70 95 /05 1600 Room Air Intake & Output 01/25 1600 01/25 0800 01/25 0000 Intake Total 50 50 Output Total 140 150 Balance -90 -100 Intake, Oral 50 50 Output, Urine 140 150 Physical Exam General Appearance: no apparent distress, sleepy Head: atraumatic Ears, Nose, Throat: dry mucus membranes Respiratory: no respiratory distress, few scattered rhonchi anteriorly Cardiovascular: regular rate/rhythm Abdomen: soft, non-tender Extremities: minimal bilat. pedal edema and mottling Other Physical Findings: mcclure with clear yellow urine Current Medications: Current Medications Sig/Mckenzie Start time Last Medication Dose Route Stop Time Status Admin Acetaminophen 650 MG Q4P PRN 06/ [address] Artificial Tears 2 GTT Q2P PRN / 1330 AC OU Aspirin 300 MG Q4P PRN 01/[address] Bisacodyl 10 MG DAILY NEEDED PRN 01/[address] Glycerin 2 SPRAY Q4P PRN 06/ 1330 AC PO Glycerin/Mineral Oil 1 DALTON Q8P PRN 01/21 1330 AC TOP Glycopyrrolate 400 MCG Q4P PRN 01/22 0945 AC 01/25 IV 1004 Lorazepam 0.5 MG Q4 PRN 06/ 1330 AC 01/25 IV 1217 Morphine Sulfate 2 MG Q2P PRN 06/ 1330 AC 01/24 IV 1543 Ondansetron HCl 4 MG Q6P PRN / 1530 AC 01/22 IV 1205 Scopolamine HBr 1 PAT Q72 / 0900 01/24 TOP 1024 Assessment/Plan Hospice Assessment/Recommendations: 82 y.o. male with advanced dementia and dysphagia now with acute hypoxic respiratory failure secondary to aspiration pneumonia. Currently comfortable. Continue with as needed medications for comfort. Problem List: 1. Acute respiratory failure with hypoxia 2. Aspiration pneumonia 3. Dysphagia 4. Dementia
[2018-01-25 21:25] VITALS: BP 117/65
[2018-01-26 06:20] VITALS: BP 140/78
--- NOTE | 2018-01-26 13:23 | PN- Hospice ---
Subjective Subjective: Pt. is more alert today, appears comfortable with intermittent coughing. He denies any shortness of breath, discomfort. Family has been feeding bites/sips. Has received no morphine, ativan x 1 and Robinul x3. Per nursing, pt had significant amount of coughing and distress this am, was suctioned by respiratory therapy. Pt. noted to have pocketed food in mouth. Discussed with family that pt. appears to be tolerating only ice chips or sami ice and anything more substantial causing pooling, significant coughing, and distress. Family verbalizing understanding. Review of Systems Constitutional: Reports: see HPI. Objective Last 24 Hrs of Vital Signs/I&O Vital Signs Date Time Temp Pulse Resp B/P B/P Pulse O2 O2 Flow FiO2 Mean Ox Delivery Rate 01/27 620 98.1 77 20 140/78 92 Room Air 01/26 0000 Room Air 01/25 2125 98.0 80 18 117/65 91 Intake & Output 01/26 1600 01/26 0800 01/26 0000 Intake Total 0 Output Total 200 150 Balance -200 -150 Intake, Oral 0 Number 0 Bowel Movements Output, Urine 200 150 Physical Exam General Appearance: no apparent distress, awake Head: atraumatic Ears, Nose, Throat: oral mucosa slightly dry Respiratory: occasional wet cough, no distress, tracheal secretions noted. Otherwise, breath sounds diminished anteriorly Cardiovascular: regular rate/rhythm Extremities: trace bipedal edema Other Physical Findings: mcclure with zeynep urine Current Medications: Current Medications Sig/Mckenzie Start time Last Medication Dose Route Stop Time Status Admin Artificial Tears 2 GTT Q2P PRN 01/21 1330 AC OU Aspirin 300 MG Q4P PRN 01/24 1415 AC GA Bisacodyl 10 MG DAILY NEEDED PRN 01/21 1330 AC GA Glycerin 2 SPRAY Q4P PRN 06/ 1330 AC PO Glycerin/Mineral Oil 1 DALTON Q8P PRN 01/21 1330 AC TOP Glycopyrrolate 400 MCG Q4P PRN 01/22 0945 AC 01/26 IV 0946 Lorazepam 0.5 MG Q4 PRN 01/21 1330 AC 01/25 IV 1217 Morphine Sulfate 2 MG Q2P PRN 06/ 1330 AC 01/24 IV 1543 Ondansetron HCl 4 MG Q6P PRN 01/21 1530 AC 01/22 IV 1205 Scopolamine HBr 1 PAT Q72 01/24 0900 01/24 TOP 1024 Assessment/Plan Hospice Assessment/Recommendations: 82 y.o. male with advanced dementia and dysphagia now with acute hypoxic respiratory failure secondary to aspiration pneumonia. Secretions requiring increased use of Robinul--will schedule 400mcg IV every 6 hours. No nasotracheal suction; Yankauer only for excessive oral secretions, comfort feeding only as tolerated by pt, utilize repositioning for excessive secretions as well. Problem List: 1. Acute respiratory failure with hypoxia 2. Aspiration pneumonia 3. Dysphagia 4. Dementia
[2018-01-26 13:40] VITALS: BP 153/84
[2018-01-27 06:00] VITALS: BP 134/70
--- NOTE | 2018-01-27 12:39 | PN- Hospice ---
Subjective Subjective: Pt. coughing very frequently, mildly distressed due to secretions. Used ativan x 3 and morphine x 1 overnight, as needed Robinul x 2 on top of scheduled doses IV access lost now. Appears warm. Nursing reports ativan with little effect. Review of Systems Constitutional: Reports: see HPI. Objective Last 24 Hrs of Vital Signs/I&O Vital Signs Date Time Temp Pulse Resp B/P B/P Pulse O2 O2 Flow FiO2 Mean Ox Delivery Rate 01/27 0600 98.0 80 20 134/70 92 Room Air 01/26 1340 98.4 78 24 153/84 97 Room Air Intake & Output 01/27 1600 01/27 0800 01/27 0000 Intake Total 20 0 Output Total 200 250 Balance -180 -250 Intake, IV 20 Intake, Oral 0 Number 0 Bowel Movements Output, Urine 200 250 Temp now 99.4 Physical Exam General Appearance: mild distress Head: atraumatic, flushed Ears, Nose, Throat: dry mucus membranes Respiratory: mild distress, rhonchi anteriorly that clear some with cough, tracheal secretions Cardiovascular: regular rate/rhythm Extremities: mild bipedal edema, cool extremities no mottling noted Skin: face is flushed, warm, diaphoretic Other Physical Findings: mcclure with zeynep urine Assessment/Plan Hospice Assessment/Recommendations: 82 y.o. male with advanced dementia and dysphagia now with acute hypoxic respiratory failure secondary to aspiration pneumonia. Copious secretions-increase scopolamine patch to 3 patches, Robinul every 4 hrs and every 1 hr as needed, discussed repositioning and gravity. Will also increase ativan dose to 1mg and schedule every 8 hrs and every 4 hrs as needed. All meds changed to subcuatneous due to lack of IV access. Low grade fever currently--family reports allergy to Tylenol listed probably not true allergy. May have had mild rash in past but they have requested tylenol be added to meds for fever. Problem List: 1. Acute respiratory failure with hypoxia 2. Aspiration pneumonia 3. Dysphagia 4. Dementia
[2018-01-28 06:20] VITALS: BP 130/78
--- NOTE | 2018-01-28 09:01 | PN- Att Addend ---
Attending Addendum Attending Brief Note Patient seen and examined. Continues to have increased airway secretions. Groaning repeatedly with audible airway secretions. Vital Signs Date Time Temp Pulse Resp B/P B/P Pulse O2 O2 Flow FiO2 Mean Ox Delivery Rate 01/28 0620 98.7 86 22 130/78 90 Room Air 01/27 1903 102.5 01/27 1804 102.5 General appearance: Elderly male, chronically ill looking. Heart: S1-S2 regular with no audible murmur. Lungs: Upper airway congestion audible without stethoscope. Abdomen: Nondistended with normal bowel sounds. Soft, nontender with no palpable masses. Extremities: No pedal edema. No cyanosis. Skin: Intact Problems: 1. Elderly male admitted with aspiration pneumonia and now hospice care. Plan: -Continue current regimen for secretion management. -Recommend administering Ativan and morphine to help control his distress. Dosing may be increased until discomfort is achieved. This was discussed with nursing staff.
[2018-01-29 05:42] VITALS: BP 110/43
--- NOTE | 2018-01-29 10:56 | PN- Att Addend ---
Attending Addendum Attending Brief Note Patient appears much more comfortable today. Significantly less audible secretions today. No issues overnight reported by nursing staff. Vital Signs Date Time Temp Pulse Resp B/P B/P Pulse O2 O2 Flow FiO2 Mean Ox Delivery Rate 01/29 0632 97.5 01/29 0630 97.5 01/29 0542 101.3 64 24 110/43 93 Nasal 2.0L Cannula 01/29 0501 101.3 01/29 0000 Nasal 2.0L Cannula 01/28 1600 Nasal 2.0L Cannula 01/28 1322 99.8 01/28 1137 102.0 General appearance: Not in any acute distress. HEENT: Anicteric, no pallor, pupils equal and reactive. Neck: Supple with no jugular venous distention. Heart: S1-S2 regular Lungs: Adequate and symmetric air entry bilaterally. Abdomen: Soft and nontender Extremities: No pedal edema. No cyanosis. Skin: Intact Problems: 1. Elderly male admitted with aspiration pneumonia and now on hospice care. Plan: -Continue current regimen for secretion management. -Continue anxiolytic therapy with Ativan and morphine.
[2018-01-29 15:08] VITALS: BP 120/60
[2018-01-30 06:00] VITALS: BP 86/50
--- NOTE | 2018-01-30 13:57 | PN- Hospice ---
Subjective Subjective: Family at bedside, pt. actively dying. Spiritual care called to provide comfort to family and pt. Review of Systems Constitutional: Reports: see HPI. Objective Last 24 Hrs of Vital Signs/I&O Vital Signs Date Time Temp Pulse Resp B/P B/P Pulse O2 O2 Flow FiO2 Mean Ox Delivery Rate 01/30 1244 100.0 01/30 0907 99.6 01/30 0600 100.9 96 20 86/50 90 Nasal 2.0L Cannula 01/30 0558 100.9 01/29 1620 99.9 01/29 1600 Nasal 2.0L Cannula 01/29 1519 99.6 01/29 1508 99.6 70 20 120/60 95 Intake & Output 01/30 1600 01/30 0800 01/30 0000 Intake Total 0 30 Output Total 75 Balance -75 30 Intake, IV 30 Intake, Oral 0 0 Output, Urine 75 Physical Exam General Appearance: comfortable, periods of apnea Respiratory: long periods of apnea, no distress, no audible secretions Cardiovascular: regular rate/rhythm Current Medications: Current Medications Sig/Mckenzie Start time Last Medication Dose Route Stop Time Status Admin Acetaminophen 650 MG Q4P PRN 06/ 1430 AC 01/30 SD 1244 Artificial Tears 2 GTT Q2P PRN 01/21 1330 AC OU Aspirin 300 MG Q4P PRN / 1415 AC SD Bisacodyl 10 MG DAILY NEEDED PRN 01/21 1330 AC SD Glycerin 2 SPRAY Q4P PRN / 1330 AC PO Glycerin/Mineral Oil 1 DALTON Q8P PRN / 1330 01/26 [facility] 2159 Glycopyrrolate 400 MCG Q4 01/27 1400 01/30 MO 0919 Glycopyrrolate 400 MCG Q1P PRN / 1245 01/29 MO 1617 Lorazepam 1 MG Q8 / 2200 01/30 MO 0558 Lorazepam 1 MG Q4P PRN / 1415 01/29 MO 1626 Morphine Sulfate 2 MG Q2P PRN / 1245 01/30 MO 0558 Scopolamine HBr 3 PAT Q72 / 1400 01/30 [facility] 0919 Assessment/Plan Hospice Assessment/Recommendations: Mr. Gerardo is receiving hospice care for respiratory failure due to aspiration pneumonia related to dysphagia secondary to advanced dementia. Continue with end-of-life care, support to pt and family.
[2018-01-31 06:20] VITALS: BP 76/41
--- NOTE | 2018-01-31 09:15 | PN- Hospice ---
Subjective Subjective: Pt. is unresponsive with shallow respirations and is febrile with scant urine output. Review of Systems Constitutional: Reports: see HPI. Objective Last 24 Hrs of Vital Signs/I&O Vital Signs Date Time Temp Pulse Resp B/P B/P Pulse O2 O2 Flow FiO2 Mean Ox Delivery Rate 01/31 0811 102.7 01/31 0620 102.1 110 26 76/41 85 Nasal 2.0L Cannula 01/31 0559 102.0 01/31 0500 102.0 01/31 0125 101.3 22 01/31 0000 Nasal 2.0L Cannula 01/30 2359 101.0 01/30 2301 102.0 01/30 2300 102.0 01/30 2000 99.0 01/30 1755 24 Nasal 2.0L Cannula 01/30 1713 32 Nasal 2.0L Cannula 01/30 1600 Nasal 2.0L Cannula 01/30 1600 38 Nasal 2.0L Cannula 01/30 1453 99.7 01/30 1244 100.0 Intake & Output 01/31 1600 01/31 0800 01/31 0000 Intake Total 0 0 Output Total 25 Balance 0 -25 Intake, Oral 0 0 Output, Urine 25 Physical Exam General Appearance: chronically ill-appearing male with shallow respirations Respiratory: tachypneic with mild tracheal secretions, RR-28 Cardiovascular: tachycardia Extremities: cool Current Medications: Current Medications Sig/Mckenzie Start time Last Medication Dose Route Stop Time Status Admin Acetaminophen 650 MG .STK-MED ONE 01/30 225 DC AR 01/30 2259 Acetaminophen 650 MG Q4P PRN 01/27 1430 AC 01/31 AR 0811 Artificial Tears 2 GTT Q2P PRN 01/21 1330 AC OU Aspirin 300 MG Q4P PRN 06/ 1415 AC 01/31 AR 0019 Bisacodyl 10 MG DAILY NEEDED PRN 01/21 1330 AC AR Glycerin 2 SPRAY Q4P PRN 01/21 1330 AC PO Glycerin/Mineral Oil 1 DALTON Q8P PRN 01/21 1330 AC 01/30 TOP 2000 Glycopyrrolate 400 MCG Q4 01/27 1400 AC 01/31 SC 0604 Glycopyrrolate 400 MCG Q1P PRN 01/27 1245 AC 01/30 SC 1840 Lorazepam 1 MG Q8 01/27 2200 AC 01/31 SC 0604 Lorazepam 1 MG Q4P PRN 01/27 1415 AC 01/31 SC 0023 Morphine Sulfate 2 MG Q2P PRN 01/27 1245 01/31 SC 0456 Scopolamine HBr 3 PAT Q72 01/27 1400 01/30 [facility] 0919 Assessment/Plan Hospice Assessment/Recommendations: Mr. Gerardo is receiving hospice care for respiratory failure due to aspiration pneumonia related to dysphagia secondary to advanced dementia. He is actively dying, with fever and increased respiratory effort. Schedule APAP q4h, discussed with nursing to give ASA if fever not coming down with APAP alone. Increase morphine to 3mg SC and schedule every 4 hrs, and q1h as needed dyspnea/ pain Increase ativan frequency to every 4 hr. Problem List: 1. Acute respiratory failure with hypoxia 2. Aspiration pneumonia 3. Dysphagia 4. Dementia
--- NOTE | 2018-02-01 08:43 | Discharge Summary ---
Visit Information Visit Dates Admission Date: 01/21/18 Discharge Date: 01/31/18 Hospital Course Course Attending Physician: Candelaria Henderson MD Primary Care Physician: Anita Headley MD Hospital Course: Mr. Gerardo is receiving hospice care for respiratory failure due to aspiration pneumonia related to dysphagia secondary to advanced dementia. He was kept comfortable with Robinul and scopolamine for secretions, acetaminophen and aspirin for fever, morphine for dyspnea and ativan for anxiety, until he peacefully with his family at bedside. Allergies: Coded Allergies: acetaminophen (Mild, RASH 01/27/18) 01/27/18: Family states allergy not certain and requested pt receive acetaminophen for fever Disposition Summary Disposition Principal Diagnosis: Acute hypoxic respiratory failure Aspiration pneumonia Dysphagia Additional Diagnosis: Unspecified dementia without behavioral disturbance Discharge Disposition: Discharge Instructions General Discharge Information Code Status: Hospice Patient's Diet: N/A Patient's Activity: N/A Follow-Up Instructions/Appts: N/A Copies To: Anita Headley MD
== END 2018-01-31 11:24 | disposition expired | DRG 177 ==
LOC: 2NA 12:49 → ENTRNSPT 01-31 13:42 → EDTRNSPTSTS 01-31 13:45 → CMPTRNSPT 01-31 13:53
DX: J69.0 Pneumonitis due to inhalation of food and vomit (principal); J96.01 Acute respiratory failure with hypoxia; F03.90 Unspecified dementia, unspecified severity, without behavioral disturbance, psychotic disturbance, mood disturbance, and anxiety
CPT/HCPCS: J2060; J2405